=== PATIENT | female | born 1950 | race Caucasian/White ===

== ENCOUNTER 2020-07-18 11:25 | Observation (INO) | payer OTHER ==
--- OUTSIDE RECORDS SUMMARY | 2020-07-18 11:28 | XMS REPORT | Clinical Summary ---
:1950 Author Organization [facility] Address [address] [place] [address] Care Team Providers Name Role Phone Yuko Fall MD Primary Care Provider Unavailable Allergies Active Allergy Reactions Severity Noted Date Comments Aspirin 09/23/2016 Only in high do ses Codeine Nausea And Vomiting 09/23/2016 Other Rash Low 09/23/2016 VINEGAR Medications Medication Sig Dispensed Refills Start Date End Date Status BABY ASPIRIN ORAL Take 81 mg by 0 Active mouth daily. 2 pills a day budesonide-formot Inhale 2 0 Ac tive george (SYMBICORT) (two) times a 80-4.5 day as mcg/actuation needed. inhaler butorphanol as needed. 0 Active (STADOL) 10 mg/mL nasal spray carvedilol Take 12.5 mg 0 Active (COREG) 12.5 MG by mouth 2 tablet (two) times a day. furosemide Take 40 mg by 0 Activ e (LASIX) 40 MG mouth daily. tablet HYDROcodone-aceta Take 1 tablet 0 Active minophen (NORCO by mouth. 10-325) 10-325 mg per tablet zolpidem (AMBIEN) nightly as 0 03/17/2017 Active 10 mg needed. tabletIndications : Rheumatoid arthritis involving multiple sites with positive rheumatoid factor (HCC) topiramate Take 100 mg 0 05/12/2017 Active (TOPAMAX) 100 MG by mouth 2 tablet (two) times a day. Take 2 tablets twice a day XOPENEX HFA 45 USE 2 (TWO) 3 06/19/2018 Ac tive mcg/actuation PUFFS EVERY inhaler FOUR HOURS, NEEDED DULoxetine Take 60 mg by 5 06/07/2018 Acti ve (CYMBALTA) 60 MG mouth daily. capsule metOLazone Take 5 mg by 0 Active (ZAROXOLYN) 5 MG mouth daily. tablet folic acid Take 2 60 tablet 2 10/09/2018 Active (FOLVITE) 1 MG tablets by tabletIndications mouth daily : Rheumatoid arthritis involving multiple sites with positive rheumatoid factor (HCC) gabapentin TAKE 2 180 capsule 2 02/04/2020 Active (NEURONTIN) 300 CAPSULES BY mg capsule MOUTH 3 TIMES A DAY potassium Take 20 mEq 0 Active chloride (K-DUR) by mouth. 20 MEQ CR tablet umeclidinium daily. 0 03/19/2020 Active (Incruse Ellipta) 62.5 mcg/actuation blister with device ferrous sulfate Take by 0 Acti ve 325 (65 FE) MG mouth. tablet valACYclovir TAKE 1 TABLET 30 tablet 3 06/16/2020 Ac tive (VALTREX) 500 MG BY MOUTH tabletIndications DAILY FOR 30 : Herpes zoster DAYS. without complication infliximab Infuse 500 mg 0 Activ e (REMICADE IV) into a venous catheter. Every 8 weeks predniSONE Day 1- 2= 8 72 tablet 0 07/18/2020 Active (DELTASONE) 5 mg tabs, 3-4=7 0 tabletIndications tabs, 5-6=6 : Rheumatoid tabs,7-8=5 arthritis tabs, 9-10=4 involving tabs,11-12=3 multiple sites tabs,13-14=2 with positive tabs,15-16 rheumatoid factor =1. Take all (HCC) in the morning omeprazole 0 03/24/2017 Disconti nued (PriLOSEC) 40 MG 0 capsule ferrous sulfate Take by 0 Disc ontinued (IRON ORAL) mouth. 0 (Duplica te order) etanercept Inject under 0 Discon tinued (ENBREL the skin. 9 (Dose SURECLICK) 50 adjust ment) mg/mL (0.98 mL) pen injector gabapentin Takes 1 pill 120 tablet 2 01/08/2019 Disc ontinued (NEURONTIN) 800 four times a 9 ( Therapy mg tablet day completed) predniSONE 4 tablets 360 tablet 1 04/04/2019 Discont inued (DELTASONE) 5 mg daily and 9 (Th erapy tabletIndications taper as co mpleted) : Rheumatoid directed arthritis involving multiple sites with positive rheumatoid factor (HCC) gabapentin Take 2 pills 180 capsule 2 04/27/2019 Dis continued (NEURONTIN) 300 tid 9 (Reo rder) mg capsule valACYclovir Take 1 tablet 30 tablet 3 06/11/2019 Di scontinued (VALTREX) 500 MG (500 mg 9 (Re order) tabletIndications total) by : Herpes zoster mouth daily without for 30 days. complication gabapentin Take 2 pills 180 capsule 2 07/30/2019 Dis continued (NEURONTIN) 300 tid 9 mg capsule valACYclovir Take 1 tablet 30 tablet 3 10/15/2019 Di scontinued (VALTREX) 500 MG (500 mg 0 tabletIndications total) by : Herpes zoster mouth daily without for 30 days. complication etanercept Inject under 0 Discon tinued (ENBREL MINI) 50 the skin. 0 (In effective) mg/mL (1 mL) cartridge gabapentin Take 2 pills 180 capsule 2 11/05/2019 Dis continued (NEURONTIN) 300 tid 0 mg capsule valACYclovir TAKE 1 TABLET 30 tablet 3 02/04/2020 Di scontinued (VALTREX) 500 MG (500 MG 0 tabletIndications TOTAL) BY : Herpes zoster MOUTH DAILY without FOR 30 DAYS. complication leflunomide TAKE 1 TABLET 90 tablet 1 03/04/2020 Exp ired (ARAVA) 20 MG (20 MG TOTAL) 0 tabletIndications BY MOUTH : Rheumatoid DAILY FOR 90 arthritis DAYS. involving multiple sites with positive rheumatoid factor (HCC) Active Problems Problem Noted Date Herpes zoster without complication 03/24/2017 Rheumatoid arthritis involving multiple sites with pos itive rheumatoid 09/23/2016 factor Elevated fasting glucose 09/23/2016 Atherosclerosis of coronary artery 03/30/2016 Adrenal mass 02/19/2016 History of shingles Essential hypertension Sleep apnea COPD (chronic obstructive pulmonary disease) Encounters Date Type Specialty Care Team Description 07/18/2020 Telephone Rheumatology Sowmya Earl MA 07/18/2020 Orders Only Rheumatology Sowmya Earl Rheumatoid arthritis MA involving multi ple sites with positive r heumatoid factor (HCC) (P rimary Dx) 07/17/2020 Infusion Infusion Therapy Rheumatoid arthritis involving multiple sites with positive rheumatoid factor (HCC) (Primary Dx); Encounter for l tyler-term (current) use of high-risk medication 07/17/2020 Office Visit Rheumatology Kevin Jimenez Rheumatoi d arthritis involving multiple sites with positive rheumatoid factor (HCC) (Primary Dx); MD Encounter for l tyler-term (current) use of high-risk medication; Mixed hyperlipi demia; Essential hyper tension; Mucopurulent ch ronic bronchitis (HCC); Current smoker; Moderate episod e of recurrent major depressive disorder (HCC) 07/17/2020 Travel 06/16/2020 Refill Rheumatology Kevin Jimenez Herpes zo ster without MD complication 06/03/2020 Infusion Infusion Therapy Rheumatoid arthritis involving multi ple sites with positive r heumatoid factor (HCC) (P rimary Dx) 06/03/2020 Travel 05/20/2020 Infusion Infusion Therapy Encounter f or long-term current use of high risk medication (Primary Dx); Rheumatoid arth ritis involving multiple sites with positive rheumatoid factor (HCC) 05/20/2020 Travel 05/19/2020 Orders Only Infusion Therapy Abby Russ RN 04/23/2020 Lab Lab Kevin Jimenez Rheumatoi d arthritis with rheumatoid factor of multiple sites without organ or systems involvement (HCC) (Primary Dx); Other long term care administrator (current) drug therapy 04/23/2020 Office Visit Rheumatology Kevin Jimenez Rheumatoi d arthritis involving multiple sites with positive rheumatoid factor (HCC) (Primary Dx); MD Encounter for l tyler-term (current) use of high-risk medication 04/23/2020 Travel 03/03/2020 Refill Rheumatology Kevin Jimenez Rheumatoi d arthritis MD involving multi ple sites with positive r heumatoid factor (HCC) 02/19/2020 Telephone Rheumatology Sowmya Earl MA 02/04/2020 Refill Rheumatology Kevin Jimenez Herpes zo ster without MD complication 11/02/2019 Refill Rheumatology Kevin Jimenez MD 10/24/2019 Office Visit Rheumatology Kevin Jimenez Rheumatoi d arthritis involving multiple sites with positive rheumatoid factor (HCC) (Primary Dx); MD Encounter for l tyler-term (current) use of high-risk medication; Essential hyper tension; Mixed hyperlipi demia; GERD without es ophagitis; Elevated fastin g glucose; Mucopurulent ch ronic bronchitis (HCC); Atherosclerosis of coronary artery of qu[place] heart without angina pectoris, unspecified vessel or lesion type 10/15/2019 Refill Rheumatology Kevin Jimenez, Herpes zo ster without MD complication 07/30/2019 Refill Rheumatology Kevin Jimenze MD after 07/18/2019 Family History Medical History Relation Name Comments Heart attack Father COPD Mother Alopecia Sister Bipolar disorder Sister Relation Name Status Comments Father Mother Sister Alive Social History Tobacco Use Types Packs/Day Years Used Date Former Smoker Quit: 2012 Smokeless Tobacco: Never Used Alcohol Use Drinks/Week oz/Week Comments Yes Sex Assigned at Date Recorded Not on file Job Start Date Occupation Industry Not on file Not on file Not on file Travel History Travel Start Travel End No recent travel history available. COVID-19 Exposure Response Date Recorded In the last month, have you been in contact with No / Unsure 07/17/2020 9:16 AM CDT someone who was confirmed or suspected to have Coronavirus / COVID-19? Last Filed Vital Signs Vital Sign Reading Time Taken Comments Blood Pressure 96/55 07/17/2020 9:53 AM CDT Pulse 74 07/17/2020 9:53 AM CDT Temperature 36.4 C (97.5 F) 07/17/2020 9:53 AM CDT Respiratory Rate 18 07/17/2020 9:53 AM CDT Oxygen Saturation 98% 07/17/2020 9:44 AM CDT Inhaled Oxygen Concentration - - Weight 96.2 kg (212 lb) 07/17/2020 9:53 AM CDT Height 160 cm (5' 3") 07/17/2020 9:44 AM CDT Body Mass Index 37.55 07/17/2020 9:44 AM CDT Plan of Treatment Date Type Specialty Care Team Description 09/11/2020 Infusion Infusion Therapy Health Maintenance Due Date Last Done Comments BREAST CANCER SCREENING 2000 COLONOSCOPY SCREENING 2000 SHINGLES VACCINES (#1) 2000 65+ PNEUMOCOCCAL VACCINE (1 of 2 - PCV13) 2015 INFLUENZA VACCINE 08/07/2020 Procedures Procedure Name Priority Date/Time Associated Comments Diagnosis QUANTIFERON-TB GOLD Routine 05/20/2020 9:55 Re sults for this PLUS, 1 TUBE AM CDT procedure are i n the results section. HEPATITIS B CORE Routine 05/20/2020 9:55 Encounter for Result s for this ANTIBODY TOTAL AM CDT long-term current procedur e are in use of high risk the results medication section. HEPATITIS B SURFACE Routine 05/20/2020 9:55 Encounter for Res ults for this ANTIGEN AM CDT long-term current procedure are in use of high risk the results medication section. ESTIMATED GFR Routine 04/23/2020 12:15 Results fo r this PM CDT procedure are i n the results section. URINALYSIS, AUTOMATED Routine 04/23/2020 12:15 Rheumatoid Re sults for this WITH MICROSCOPY PM CDT arthritis with procedure are in rheumatoid factor the result s of multiple sites section. without organ or systems involvement (HCC) Other long term care administrator (current) drug therapy SEDIMENTATION RATE Routine 04/23/2020 12:15 Rheumatoid Resul ts for this PM CDT arthritis with procedure are in rheumatoid factor the result s of multiple sites section. without organ or systems involvement (HCC) Other fci (current) drug therapy C-REACTIVE PROTEIN Routine 04/23/2020 12:15 Rheumatoid Resul ts for this PM CDT arthritis with procedure are in rheumatoid factor the result s of multiple sites section. without organ or systems involvement (HCC) Other fci (current) drug therapy COMPREHENSIVE Routine 04/23/2020 12:15 Rheumatoid Results fo r this METABOLIC PANEL PM CDT arthritis with procedure are in rheumatoid factor the result s of multiple sites section. without organ or systems involvement (HCC) Other long term care administrator (current) drug therapy HC COMPLETE BLD COUNT Routine 04/23/2020 12:15 Rheumatoid Re sults for this W/AUTO DIFF PM CDT arthritis with procedure are in rheumatoid factor the result s of multiple sites section. without organ or systems involvement (HCC) Other fci (current) drug therapy MICROSCOPIC Routine 10/24/2019 2:02 Results for this EXAMINATION PM GRAPHICS SOFTWARE ENGINEER procedure are i n the results section. URINALYSIS, AUTOMATED Routine 10/24/2019 2:02 Encounter for R esults for this WITH MICROSCOPY PM GRAPH[employer] SOFTWARE ENGINEER long-term (current) proce dure are in use of high-risk the results medication section. SEDIMENTATION RATE Routine 10/24/2019 2:02 Rheumatoid Resul ts for this PM [employer]APH[employer] SOFTWARE ENGINEER arthritis involving procedur e are in multiple sites with the resu lts positive rheumatoid section. factor (HCC) C-REACTIVE PROTEIN Routine 10/24/2019 2:02 Rheumatoid Resul ts for this PM GRAPHICS SOFTWARE ENGINEER arthritis involving procedur e are in multiple sites with the resu lts positive rheumatoid section. factor (HCC) COMPREHENSIVE Routine 10/24/2019 2:02 Encounter for Results f or this METABOLIC PANEL PM GRAPHICS SOFTWARE ENGINEER long-term (current) proce dure are in use of high-risk the results medication section. CBC WITH PLATELET AND Routine 10/24/2019 2:02 Encounter for R esults for this DIFFERENTIAL PM GRAPHICS SOFTWARE ENGINEER long-term (current) procedur e are in use of high-risk the results medication section. after 07/18/2019 Results QuantiFERON-TB Gold Plus, 1 Tube (05/20/2020 9:55 AM CDT) [facility] Quantiferon TB gold NEGATIVE NEGATIVE [facility] plus Comment: [place] Negative test result. M. tuberculosis complex infection unlikely. Quantiferon NIL 0.05 IU/mL [facility] [place] Quantiferon mitogen >10.00 IU/mL [facility] minus NIL [place] Quantiferon plus <0.00 IU/mL [facility] TB1 minus NIL [place] Quantiferon plus <0.00 IU/mL [facility] TB2 minus NIL Comment: [place] The Nil tube value reflects the background interferon gamma immune response of the patient's blood sample. This value has been subtracted from the patient's displayed TB and Mitogen results. Lower than expected results with the Mitogen tube prevent false-negative Quantiferon readings by detecting a patient with a potential immune suppressive condition and/or suboptimal pre-analytical specimen handling. The TB1 Antigen tube is coated with the M. tuberculosis-specific antigens designed to elicit responses from TB antigen primed CD4+ helper T-lymphocytes. The TB2 Antigen tube is coated with the M. tuberculosis-specific antigens designed to elicit responses from TB antigen primed CD4+ helper and CD8+ cytotoxic T-lymphocytes. For additional information, please refer to https://education.Myntra.Innova/faq/VHK552 (This link is being provided for informational/ educational purposes only.) Specimen Resulting Agency Comment Performing Organization Information: Site ID: [id number] Name: [place] [employer] [employer] Address: [address] [place] [id number] Director: Cleveland Sampson Performing Organization Address City/State/Zipcode Phone Number [place] [address] [address] Hepatitis B core antibody total (05/20/2020 9:55 AM CDT) Hepatitis B core NON-REACTIVE NON-REACTIVE [facility] total Ab [place] Specimen Blood Resulting Agency Comment Performing Organization Information: Site ID: [id number] Name: [facility] Address: [address] [place] [phone] Director: Cleveland Sampson Performing Organization Address City/State/[facility] Phone Number [facility] [email or web address] [address] Hepatitis B surface antigen (05/20/2020 9:55 AM CDT) Hepatitis B surface NON-REACTIVE NON-REACTIVE [facility] Ag [place] Specimen Blood Resulting Agency Comment Performing Organization Information: Site ID: KARLOS Name: [facility] Address: [address] [place] [id number] Director: Cleveland Sampson Performing Organization Address [facility] Cent[facility]ode Phone Number [place] [phone] Estimated GFR (04/23/2020 12:15 PM CDT) Estimated GFR 38 (A) mL/min/1.73 [facility] Comment: HOSPITAL Catergory Units Interpretation G1 >=90 Normal or high G2 60-89 Mildly decreased G3a 45-59 Mildly to moderately decreas ed G3b 30-44 Moderately to severely decre ased G4 15-29 Severely decreased G5 <15 Kidney failure The eGFR was calculated using the Chronic Kidney Disea se Epidemiology Collaboration (CKD-EPI) equation. Interpretation is based on recommendations of the National Kidney Foundation-Kidney Disease Outcomes Marvel lity Initiative (NKF-KDOQI) published in 2014. Specimen Performing Organization Address City/State/Zipcode Phone Number [facility] DEPARTMENT OF PATHOLOGY AND [address], [place] [address] GENOMIC MEDICINE [facility] [address] [place] [address] Urinalysis, automated with microscopy (04/23/2020 12:15 PM CDT)Only the most recent of2 resultswithin the time period is included. Pathologist Sig nature Color, UA Straw [facility] Appearance, UA Clear [facility] Specific gravity, UA 1.012 1.001 - 1.035 [facility] pH, UA 5.0 5.0 - 8.5 [facility] Protein, UA Negative Negative [facility] Glucose, UA Negative Negative [facility] Ketones, UA Negative Negative [facility] Bilirubin, UA Negative Negative [facility] Blood, UA Negative Negative [facility] Nitrite, UA Negative Negative [facility] Urobilinogen, UA <2.0 <2.0 [facility] Leukocyte esterase, Negative Negative [facility] Epithelial cells, UA 3 /HPF [facility] WBC, UA <1 0 - 4 /HPF [facility] RBC, UA 1 0 - 5 /HPF [facility] Bacteria, UA None seen None seen [facility] Hyaline casts, UA 11 /LPF [facility] Yeast, UA None seen [facility] Yeast with None seen [facility] pseudohyphae, HOSPITAL Specimen Urine Performing Organization Address City/[facility] Cent[facility]ode Phone Number [facility] DEPARTMENT OF PATHOLOGY AND [address] [place] [address] [address] Sedimentation rate (04/23/2020 12:15 PM CDT)Only the most recent of2 results within the time period is included. Pathologist Sig nature Sedimentation rate 15 0 - 20 mm/hr [facility] Specimen Blood Performing Organization Address City/[facility] Centercode Phone Number [facility] DEPARTMENT OF PATHOLOGY AND [address] [place] [address] [address] [address] CBC with platelet and differential (04/23/2020 12:15 PM CDT)Only the most recent of2 resultswithin the time period is included. WBC 12.50 (H) 4.50 - 11.00 [facility] RBC 4.66 4.20 - 5.50 [facility] HGB 15.3 12.0 - 16.0 [facility] g/dL [facility] HCT 47.0 37.0 - 47.0 % [facility] MCV 100.9 (H) 82.0 - 100.0 [facility] MCH 32.8 27.0 - 34.0 pg [facility] MCHC 32.6 31.0 - 37.0 [facility] g/dL HOSPITAL RDW - SD 49.7 37.0 - 55.0 fL [facility] MPV 10.4 8.8 - 13.2 fL [facility] Platelet count 293 150 - 400 k/uL [facility] Nucleated RBC 0.00 /100 WBC [facility] Neutrophils 69.2 (H) 39.0 - 69.0 % [facility] Lymphocytes 14.2 (L) 25.0 - 45.0 % [facility] Monocytes 9.1 0.0 - 10.0 % [facility] Eosinophils 6.1 (H) 0.0 - 5.0 % [facility] Basophils 1.0 0.0 - 1.0 % [facility] Immature granulocytes 0.4Comment: 0.0 - 1.0 % [facility] "Immature [facility] granulocytes" (promyelocytes , myelocytes, metamyelocytes ) Specimen Blood Performing Organization Address City/[facility] Centercode Phone Number [facility] DEPARTMENT OF PATHOLOGY AND [address] [place] [address] [address] C-reactive protein (04/23/2020 12:15 PM CDT)Only the most recent of2 results within the time period is included. Pathologist Sig nature CRP 2.33 (H) 0.00 - 0.50 mg/dL [facility] Specimen Blood Performing Organization Address City/[facility]/Zipcode Phone Number [facility] DEPARTMENT OF PATHOLOGY AND [address] [place], [place] [phone] [address] [address] Comprehensive metabolic panel (04/23/2020 12:15 PM CDT)Only the most recent of2 resultswithin the time period is included. Sodium 141 135 - 148 [facility] mEq/L [facility] Potassium 3.1 (L) 3.5 - 5.0 [facility] mEq/L [facility] Chloride 91 (L) 98 - 112 [facility] mEq/L [facility] CO2 33 (H) 24 - 31 mEq/L [facility] Anion gap 17@ANIO (H) 7 - 15 mEq/L [facility] BUN 29 (H) 8 - 23 mg/dL [facility] Creatinine 1.39 (H) 0.50 - 0.90 [facility] mg/dL HOSPITAL Glucose 100 (H) 65 - 99 mg/dL [facility] Calcium 9.4 8.8 - 10.2 [facility] mg/dL [facility] Protein 7.7 6.3 - 8.3 [facility] Comment: g/dL HOSPITAL - 4.6-7.0 g/dL 1 week 4.4-7.6 g/dL 7 months-1year 5.1-7.3 g/dL 1-2 years 5.6-7.5 g/dL >3 years 6.0-8.0 g/dL 18-150 6.3-8.3 g/dL Albumin 3.5 3.5 - 5.0 [facility] g/dL [facility] A/G ratio 0.8 0.7 - 3.8 [facility] Alkaline phosphatase 87 35 - 104 U/L [facility] AST 21 10 - 35 U/L [facility] ALT 21 5 - 50 U/L [facility] Total bilirubin 0.3 0.0 - 1.2 [facility] mg/dL [facility] Specimen Blood Performing Organization Address City/[facility]/Zipcode Phone Number [facility] DEPARTMENT OF PATHOLOGY AND [address], [place] [address] GENOMIC MEDICINE [address] [address] Microscopic Examination (10/24/2019 2:02 PM GRAPHICS SOFTWARE ENGINEER) Pathologist Sig nature WBC, UA 0-5 0 - 5 /hpf [facility] RBC, UA None seen 0 - 2 /hpf [facility] Epithelial cells (non 0-10 0 - 10 /hpf [facility] renal) Casts Present (A) None seen /lpf [facility] Cast type Hyaline casts N/A [facility] Mucus, UA Present Not Estab. [facility] Bacteria, UA Few None seen/Few [facility] Specimen Narrative Performed At Performed at: [address] [id number] Director Of Primary: Ankur Wellington MD, Phone: [phone] Performing Organization Address City/State/Zipcode Phone Number [facility] after 07/18/2019 Insurance Payer Benefit Plan / Subscriber ID Effective Dates Phone Addre ss Type Group MEDICARE MEDICARE PART A xxxxxxxxxxx 2015-[place] AND B nt [employer] xxxxxxxxxx 2015-[place] [employer] OF jose rafael [place]OR[place] Advance Directives For more information, please contact: [phone] Type Date Recorded Patient Overedger Explanati on Advance Directives, Living Will and Medical Power of Jig Filler
--- OUTSIDE RECORDS SUMMARY | 2020-07-18 11:28 | XMS REPORT | Clinical Summary ---
:1950 Author Organization [facility] Address [address] [place] [address] Care Team Providers Name Role Phone FallEmma Primary Care Provider Allergies Active Allergy Reactions Severity Noted Date Comments Aspirin 07/20/2016 Codeine 07/20/2016 Medications Medication Sig Dispensed Refills Start Date End Date Status furosemide (LASIX) 40 Take 40 mg by 0 Active MG tablet mouth 2 (two) times daily. BABY ASPIRIN ORAL Take by mouth. 0 Active carvedilol (COREG) Take 12.5 mg by 0 Active 12.5 MG tablet mouth 2 (two) times daily with breakfast and dinner. leflunomide (ARAVA) 10 Take 10 mg by 0 Active MG tablet mouth daily. HYDROcodone-acetaminop Take 1 tablet by 0 Active hen (NORCO 10-325) mouth every 6 10-325 mg per tablet (six) hours as needed for Pain. butorphanol (STADOL) None Entered. 0 Active 10 mg/mL nasal spray estrogens, conjugated, 1 TABLET DAILY. 0 Active (PREMARIN) 0.625 MG tablet fLUoxetine (PROZAC) 20 1 CAPSULE EVERY 0 Active MG capsule MORNING. budesonide-formoterol Inhale by mouth 0 Active (SYMBICORT) 80-4.5 via inhaler as mcg/actuation inhaler needed . albuterol HFA Inhale 1 puff by 0 Active (VENTOLIN HFA) 90 mouth via inhaler mcg/actuation inhaler every 6 (six) hours as needed . acyclovir (ZOVIRAX) Take 800 mg by 0 Active 800 MG tablet mouth. gabapentin (GRALISE) Take 3 tablets by 0 02/17/2016 Active 600 mg Tb24 mouth. BUTRANS 10 mcg/hour 0 05/31/2016 Active PTWK SANTYL 250 unit/gram 0 06/15/2016 Active ointment levofloxacin 0 07/22/2016 Active (LEVAQUIN) 750 MG tablet predniSONE (DELTASONE) 0 06/01/2016 Active 5 MG tablet topiramate (TOPAMAX) 0 05/07/2016 Active 50 MG tablet Active Problems Problem Noted Date Symptomatic cholelithiasis 07/20/2016 Family History Medical History Relation Name Comments Heart disease Father COPD Mother Relation Name Status Comments Brother Father Mother Social History Tobacco Use Types Packs/Day Years Used Date Former Smoker Alcohol Use Drinks/Week oz/Week Comments No Sex Assigned at Date Recorded Not on file Job Start Date Occupation Industry Not on file Not on file Not on file Travel History Travel Start Travel End No recent travel history available. Last Filed Vital Signs Not on file Plan of Treatment Health Maintenance Due Date Last Done Comments INFLUENZA VACCINE 08/07/2018 Results Not on fileafter 07/18/2019 Insurance Payer Benefit Plan / Group Subscriber ID Type Phone A ddress MEDICARE MEDICARE A B xxxxxxxxxx Medicare MCR GENERIC MEDICARE xxxxxxxxxx Medigap SUPPLEMENT/INDIVIDUAL SUPPLEMENT [phone] [id number] (Work) Advance Directives For more information, please contact:[address] [phone] Code Status Date Activated Date Inactivated Comments Full Code 07/21/2016 2:46 PM 07/22/2016 1:37 PM This code status was determined by: Patient Full Code 07/20/2016 4:03 PM 07/21/2016 2:46 PM This code status was determined by: Patient
--- OUTSIDE RECORDS SUMMARY | 2020-07-18 11:30 | XMS REPORT | Continuity of Care Document ---
:1950 Author Organization [facility] t Address [address] [place] [address] Care Team Providers Name Role Phone FRITZ Primary Care Physician Unavailable SYSTEM, NOT IN Attending Clinician Unavailable ALEXIA Attending Clinician Unavailable Margot LANDAVERDE Attending Clinician Unavailable Rajat PARKER Attending Clinician Unavailable Domi Keane MD Attending Clinician Karson MARIO Attending Clinician FRITZ Attending Clinician Unavailable García Davidson RN Attending Clinician Unavailable Jhoana Flores MD Attending Clinician Tyrell RN Attending Clinician Unavailable Alexia LOPEZ Attending Clinician Unavailable Petrona RN Attending Clinician Unavailable Disha ROLDAN A Attending Clinician Edwina Price Attending Clinician Fritz MYLES Attending Clinician Isac MYLES Attending Clinician Unavailable Margot Dawson APN Attending Clinician Payers Payer Name Policy Policy Number Effective Expiration Source Type Date Date MEDICARE PART A AND B [id number] 2015 00:00:00 AETNA SENIOR [id number] 2015 SUPPLEMENT-SECONDARY 00:00:00 ONLY GENERIC [id number] MEDICAREMEDICARE PART xxxxxxxxxxx 2015 [place] A AND 00:00:00 [facility] [id number]/1/2015 -DanieHUMBERTO CASTORENAMedicare AETNACONTINENTAL LIFE xxxxxxxxxx 2015 Isabelle heath INS CO OF 00:00:00 [facility] [id number]-PresentCommer cial Problems Condition Condition Condition Status Onset Resolution Last Treating Co mments Source Name Details Category Date Date Treatment Clinician Date Chronic Chronic Disease Active kidney kidney 3-12 Anderso disease disease 00:00: n 00 Emphysema Emphysema Disease Active 3-12 Anderso 00:00: n 00 Sore Sore Disease Active throat throat 1-16 Anderso 00:00: n 00 Bilateral Bilateral Disease Active mass of mass of 12-08 Anderso adrenal adrenal 00:00: n glands glands 00 Hypertensi Hypertensi Disease Active M D on on 12-08 Anderso 00:00: n 00 Herpes Herpes Disease Active [place] zoster zoster 5-18 Methodi without without 00:00: st complicati complicati 00 on on Rheumatoid Rheumatoid Disease [facility] - Meth luz maria involving involving 00:00: st multiple multiple 00 sites with sites with positive positive rheumatoid rheumatoid factor factor Elevated Elevated Disease Active 2015-11 [place] fasting fasting 1-17 Methodi glucose glucose 00:00: st 00 Symptomati Symptomati Disease Active [facility] c c 9-13 [facility] chole[facility]ithi cholelithi 00:00: Me dical asis asis 00 Center Moderate Moderate Disease Active chronic chronic 5-26 Anderso obstructiv obstructiv 00:00: n e e 00 pulmonary pulmonary disease disease Coronary Coronary Disease Active artery artery 5-24 Anderso disease disease 00:00: n due to due to 00 lipid rich lipid rich plaque plaque Atheroscle Atheroscle Disease Active [place] rosis of rosis of 5-24 Method i coronary coronary 00:00: st artery artery 00 Adrenal Adrenal Disease Active [place] mass mass 4-14 Methodi 00:00: st 00 Rheumatoid Rheumatoid Disease Active 2008-11 Overview : arthritis arthritis 12-16 Overview: A nderso 00:00: ICD-10 n 00 History of History of Disease Active [place] shingles shingles Method i st Essential Essential Disease Active Isabelle ivana hypertensi hypertensi Me thodi on on st Sleep Sleep Disease Active [place] apnea apnea Methodi st COPD COPD Disease Active [place] (chronic (chronic Method i obstructiv obstructiv st e e pulmonary pulmonary disease) disease) Allergies, Adverse Reactions, Alerts Allergy Allergy Status Severity Reaction(s) Onset Inactive Treating Comm ents Source Name Type Date Date Clinician Aspirin Propensi Active 2015-11 Only in [place] ty to 11-23 high Methodi adverse 00:00: doses st reaction 00 s to drug Codeine Propensi Active Nausea And 2015-11 Isabelle ston ty to Vomiting 11-23 Methodi adverse 00:00: st reaction 00 s to drug Other Propensi Active Rash 2015-11 VINEGAR [place] ty to 11-23 Methodi adverse 00:00: st reaction 00 s Aspirin Propensi Active [facility] adverse 00:[facility]: Medical reaction 00 Center s Codeine Propensi Active [facility] to 07-20 [facility] - adverse 00:00: Medical reaction 00 Center s Family History Family Member Diagnosis Comments Start Date Stop Date Source Natural father Heart disease [facility] Natural father Heart disease MD Augustine birch Natural father Hypertension Luis son Natural father Heart attack [place] [facility] Natural mother COPD [facility] Natural mother Skin cancer [place] on Natural mother COPD [facility] thodist Natural brother Heart disease [place] Natural sister Hypertension Luis son Natural sister [place] [facility] thodist Natural sister Bipolar disorder [place] [facility] Social History Social Habit Start Date Stop Date Quantity Comments Source History of tobacco Current smoker [place]ina [facility] use Sex Assigned At [place] M ethodist Exposure to Not sure [place] Metho dist SARS-CoV-2 (event) Alcohol intake 2020-07-17 2020-07-17 Current drinker [place] on [facility] 00:00:00 00:00:00 of alcohol (finding) Cigarettes smoked 2020-01-17 2020-01-17 MD [place] birch current (pack per 00:00:00 00:00:00 day) - Reported Smoking Status Start Date Stop Date Source Former smoker 2020-07-17 00:00:00 2020-07-17 00:00:00 Raffaele Robersonist Current every day smoker 2020-01-17 00:00:00 MD Carlisle Medications Ordered Filled Start Stop Current Ordering Indication Dosage Frequency Signature Comments Components Source Medication Medication Date Date Medication? Clinician (SIG) Name Name predniSONE 2020-0 2020- Yes Rheumatoid Day 1- 2= [place] (DELTASONE) 9-11 09-30 arthritis 8 tabs, Methodi 5 mg tablet 00:00: 23:59 involving 3-4=7 st 00 :00 multiple tabs, sites with 5-6=6 positive tabs,7-8=5 rheumatoid tabs, factor 9-10=4 (HCC) tabs,11-12 =3 tabs,13-14 =2 tabs,15-16 =1. Take all in the morning BABY 2020-0 Yes 81mg QD Take 81 mg [place] ASPIRIN 9-10 by mouth Methodi ORAL 10:07: daily. 2 st 25 pills a day budesonide- 2020-0 Yes Q.5D Inhale 2 [place] formoterol 9-10 (two) Methodi (SYMBICORT) 10:07: times a st 80-4.5 25 day as mcg/actuati needed. on inhaler butorphanol 2020-0 Yes as needed. [place] (STADOL) 10 9-10 Methodi mg/mL nasal 10:07: st spray 25 carvedilol 2020-0 Yes 12.5mg Q.5D Take 12.5 [place] (COREG) 9-10 mg by Methodi 12.5 MG 10:07: mouth 2 st tablet 25 (two) times a day. furosemide 2020-0 Yes 40mg QD Take 40 mg [place] (LASIX) 40 9-10 by mouth Metho di MG tablet 10:07: daily. st 25 HYDROcodone 2020-0 Yes 1{tbl} Take 1 [place] -acetaminop 9-10 tablet by Met mayo jay (NORCO 10:07: mouth. st 10-325) 25 10-325 mg per tablet metOLazone 2020-0 Yes 5mg QD Take 5 mg [place] (ZAROXOLYN) 9-10 by mouth Meth luz maria 5 MG tablet 10:07: daily. st 25 potassium 2020-0 Yes 20meq Take 20 [place] chloride 9-10 mEq by Methodi (K-DUR) 20 10:07: mouth. st MEQ CR 25 tablet ferrous 2020-0 Yes Take by [place] sulfate 325 9-10 mouth. Method i (65 FE) MG 10:07: st tablet 25 infliximab 2020-0 Yes 500mg Infuse 500 [place] (REMICADE 9-10 mg into a Metho di IV) 10:07: venous st 25 catheter. Every 8 weeks etanercept 2020-0 2020- No Inject [place] (ENBREL 9-10 09-10 under the Method i MINI) 50 09:37: 00:[address] mg/mL (1 18 :00 mL) cartridge valACYclovi 2020-0 Yes Herpes TAKE 1 [place] r (VALTREX) 8-10 zoster TABLET BY M ethodi 500 MG 00:00: without MOUTH st tablet 00 complicatio DAILY FOR n 30 DAYS. ferrous 2020-0 2020- No Take by Tono n sulfate 6-17 06-17 mouth. Methodi (IRON ORAL) 10:43: 00:00 st 38 :00 potassium 2020-0 Yes 20meq Take 20 MD chloride 6-03 mEq by Anderso (K-DUR,KLOR 16:21: mouth 3 n -CON M) 20 47 (three) mEq tablet times a day. predniSONE 2020-0 Yes 20mg Take 20 mg M D (DELTASONE) 6-03 by mouth Augustine rso 5 mg tablet 16:16: as needed. n 37 FOR RHEUMATOID ARTHRITIS FLARE UP carvedilol 2020-0 Yes 12.5mg 12.5 mg MD (COREG) 6-03 twice Anderso 12.5 mg 16:16: daily. n tablet 37 furosemide 2020-0 Yes 40mg Take 40 mg M D (LASIX) 40 6-03 by mouth Luis so mg tablet 16:16: daily. n 37 aspirin 81 2020-0 Yes 81mg Take 81 mg M D mg EC 6-03 by mouth Anderso tablet 16:16: twice n 37 daily. butorphanol 2020-0 Yes 1{spray Inhale 1 MD (STADOL) 10 6-03 } spray into An derso mg/mL nasal 16:16: each n spray 37 nostril every 4 (four) hours as needed for moderate pain. HYDROcodone 2020-0 Yes 1{tbl} Take 1 MD -acetaminop 6-03 tablet by And shaio hen (NORCO) 16:16: mouth 2 n 10 mg-325 37 (two) mg per times a tablet day as needed. albuterol 2020-0 Yes 1{puff} Inhale 1 M D (VENTOLIN 6-03 puff by Anderso HFA) 90 16:16: mouth as n mcg/puff 37 needed. inhaler budesonide- 2020-0 Yes Inhale by M D formoterol 6-03 mouth Anderso (SYMBICORT) 16:16: twice n 80-4.5 37 daily. mcg/actuati on inhaler topiramate 2020-0 Yes 400mg Take 400 MD (TOPAMAX) 6-03 mg by Anderso 200 mg 16:16: mouth n tablet 37 twice daily. leflunomide 2020-0 Yes 20mg Take 20 mg MD (ARAVA) 20 6-03 by mouth Luis so mg tablet 16:16: daily. n 37 diazePAM 2020-0 Yes 10mg Take 10 mg MD (VALIUM) 10 6-03 by mouth Augustine rso mg tablet 16:16: as needed. n 37 omeprazole 2020-0 Yes 40mg Take 40 mg M D (PriLOSEC) 6-03 by mouth Luis so 40 MG 16:16: at n capsule 37 bedtime. melatonin 2020-0 Yes 10mg Take 10 mg MD 10 mg 6-03 by mouth Anderso tablet 16:16: at n 37 bedtime. valACYclovi 2020-0 Yes 500mg Take 500 M D r (VALTREX) 6-03 mg by Anderso 500 mg 16:16: mouth n tablet 37 daily. gabapentin 2020-0 Yes 300mg Take 300 MD (NEURONTIN) 6-03 mg by Anderso 300 mg 16:16: mouth 3 n capsule 37 (three) times a day. etanercept 2020-0 Yes 50mg Inject 50 MD (ENBREL) 50 6-03 mg under Augustine rso mg/mL (0.98 16:16: the skin n mL) 37 once a injection week. famotidine 2020-0 Yes 10mg Take 10 mg M D (PEPCID) 10 6-03 by mouth Augustine rso mg tablet 16:16: twice n 37 daily. folic acid 2020-0 Yes 1mg Take 1 mg MD (FOLVITE) 1 6-03 by mouth Augustine rso mg tablet 16:16: twice n 37 daily. metOLazone 2020-0 Yes 5mg Take 5 mg MD (ZAROXOLYN) 6-03 by mouth Augustine rso 5 mg tablet 16:16: daily. n 37 ARIPiprazol 2020-0 Yes 5mg Take 5 mg M D e (ABILIFY) 6-03 by mouth Augustine rso 5 mg tablet 16:16: at n 37 bedtime. zolpidem 2020-0 Yes 10mg Take 10 mg MD (AMBIEN) 10 6-03 by mouth Augustine rso mg tablet 16:16: at n 37 bedtime. ferrous 2020-0 Yes Take by MD sulfate 325 04-09 mouth Anderso mg (65 mg 16:16: daily. n elemental 37 iron per tablet) tablet dexamethaso 2020-0 2020- No 1mg Take 1 mg MD ne 04-09 by mouth Anderso (DECADRON) 16:16: 00:00 as n 1 mg tablet 08 :00 directed. dexamethaso 2020-0 2020- No Bilateral 1mg Take 1 MD ne 04-09 0604 mass of tablet (1 [place] o (DECADRON) 00:00: 04:59 adrenal mg) by n 1 mg tablet 00 :00 glands mouth once for 1 dose. Take it at 11 PM before the day of the test. iron 2020-0 2020- No 1{tbl} Take 1 MD bisgly,ps-F 04-08 tablet by An kalia A-B-C#[id number] 16:26: 00:00 mouth n cc 65 mg-65 22 :00 daily. mg -1,000 mcg (24) tab DULoxetine 2020-0 Yes daily. MD (CYMBALTA) 5-15 Anderso 60 mg 00:00: n capsule 00 INCRUSE 2020-0 Yes daily. MD ELLIPTA 5-13 Anderso 62.5 00:00: n mcg/actuati 00 on dsdv umeclidiniu 2020-0 Yes daily. Ray cruz m (Incruse 5-13 Methodi Ellipta) 00:00: st 62.5 00 mcg/actuati on blister with device potassium 2020-0 2020- No twice MD chloride 03-07 daily. Anderso (K-DUR,KLOR 00:00: 00:00 n -CON M) 20 00 :00 mEq tablet leflunomide No Rheumatoid TAKE 1 [place] (ARAVA) 20 4-28 07-27 arthritis TABLET (20 Methodi MG tablet 00:00: 23:59 involving MG TOTAL) st 00 :00 multiple BY MOUTH sites with DAILY FOR positive 90 DAYS. rheumatoid factor (HCC) dexamethaso 2019- No Bilateral Take 1 MD ne 4- 06-03 mass of tablet by [place] o (DECADRON) 00:00: 00:00 adrenal mouth at n 1 mg tablet 00 :00 glands 11 pm the night before lab work dexamethaso 2019- No Bilateral Take 1 MD ne 4- 04-09 mass of tablet by [place] o (DECADRON) 00:00: 00:00 adrenal mouth at n 1 mg tablet 00 :00 glands 11 pm the night before lab work gabapentin Yes TAKE 2 [place] on (NEURONTIN) 3-30 CAPSULES Meth luz maria 300 mg 00:00: BY MOUTH 3 st capsule 00 TIMES A DAY valACYclovi 2019- No Herpes TAKE 1 [place] (VALTREX) 3-30 08-10 zoster TABLET Met hodi 500 MG 00:00: 00:00 without ([address] tablet 00 :00 complicatio TOTAL) BY n MOUTH DAILY FOR 30 DAYS. potassium No 1{tbl} Take 1 MD 99 mg tab 3-12 03-12 tablet by Augustine rso 17:17: 00:00 mouth n 37 :00 twice daily. potassium Bilateral 20meq Take 2 MD chloride 3-12 03-13 mass of tablets Augustine rso (KLOR-CON) 00:00: 05:59 adrenal (20 mEq) n 10 mEq CR 00 :00 glands by mouth tablet daily. amoxicillin No 1{tbl} Take 1 M D -clavulanat 3 06-02 tablet by An derso e 00:00: 00:00 mouth n (AUGMENTIN) 00 :00 every 12 875 mg-125 (twelve) mg per hours. tablet dexamethaso No Adrenal 1mg Take 1 MD ne 2-24 02-25 mass tablet (1 Anderso (DECADRON) 00:00: 05:59 mg) by n 1 mg tablet 00 :00 mouth once for 1 dose. gabapentin 2018-11- No Take 2 [place] (NEURONTIN) -30 pills tid Me thodi 300 mg 00:00: 00:00 st capsule 00 :00 etanercept 2018-11- No Inject [place] (ENBREL 12-2518 under the Method i SURECLICK) 13:14: 00:[address] 50 mg/mL 01 :00 (0.98 mL) pen injector valACYclovi 2018-11- No Herpes Take 1 [place] (VALTREX) 2-30 zoster tablet Met hodi 500 MG 00:00: 00:00 without ([address] tablet 00 :00 complicatio total) by n mouth daily for 30 days. gabapentin 2018- No Take 2 [place] (NEURONTIN) 07-30-30 pills tid Me thodi 300 mg 00:00: 00:00 st capsule 00 :00 valACYclovi 2018- No Herpes Take 1 [place] (VALTREX) 06-11 12 zoster tablet Met hodi 500 MG 00:00: 00:00 without ([address] tablet 00 :00 complicatio total) by n mouth daily for 30 days. gabapentin 2018- No Take 2 [place] (NEURONTIN) 6-23 pills tid Me thodi 300 mg 00:00: 00:00 st capsule 00 :00 predniSONE 2018- No Rheumatoid 4 tablets [place] (DELTASONE) 5 12-18 arthritis daily and Methodi 5 mg tablet 00:00: 00:[address] 00 :00 multiple directed sites with positive rheumatoid factor (HCC) gabapentin 2018- No Takes 1 Isabelle ston (NEURONTIN) 3-04 12-18 pill four Me thodi 800 mg 00:00: 00:[address] tablet 00 :00 day folic acid 2017-11 Yes Rheumatoid Take 2 [place] (FOLVITE) 1 2-03 arthritis tablets by Methodi MG tablet 00:00: involving mouth st 00 multiple daily sites with positive rheumatoid factor (HCC) XOPENEX HFA Yes USE 2 [place] on 45 8-13 (TWO) Methodi mcg/actuati 00:00: PUFFS st on inhaler 00 EVERY FOUR HOURS, NEEDED DULoxetine Yes 60mg QD Take 60 mg [place] (CYMBALTA) 8-01 by mouth Metho di 60 MG 00:00: daily. st capsule 00 topiramate Yes 100mg Q.5D Take 100 [place] (TOPAMAX) 7-06 mg by Methodi 100 MG 00:00: mouth 2 st tablet 00 (two) times a day. Take 2 tablets twice a day omeprazole 2020- No [place] (PriLOSEC) 5-18 09-10 Methodi 40 MG 00:00: 00:00 st capsule 00 :00 zolpidem Yes Rheumatoid QD nightly as [place] (AMBIEN) 10 5-11 arthritis needed. Methodi mg tablet 00:00: involving st 00 multiple sites with positive rheumatoid factor (HCC) levofloxaci Yes [facility] 9-15 [facility] - (LEVAQUIN) 00:00: Medical 750 MG 00 Center tablet budesonide- Yes Inhale by C HI [facility] formoterol 9-13 mouth via Luke s - (SYMBICORT) 16:47: inhaler as Medical 80-4.5 03 needed . Center mcg/actuati on inhaler albuterol Yes 1{puff} Inhale [address] HFA 9-13 puff by [facility] - (VENTOLIN 16:41: mouth via Med ical HFA) 90 34 inhaler Center mcg/actuati every 6 on inhaler (six) hours as needed . acyclovir Yes 800mg Take [address] (ZOVIRAX) 9-13 mg by [facility] - 800 MG 11:09: mouth. Medical tablet 08 Center butorphanol Yes None [facility] (STADOL) 10 9-13 Entered. Luke s - mg/mL nasal 11:07: Medica l spray 37 [place] estrogens, Yes [address] conjugated, 9-13 DAILY. [facility] - (PREMARIN) 11:07: Medical 0.625 MG 37 [place] tablet fLUoxetine Yes [address] (PROZAC) 20 9-13 EVERY [facility] - MG capsule 11:07: MORNING. Med ical 37 [place] furosemide Yes 40mg Q.5D Take [address] (LASIX) 40 9-13 by mouth 2 Angela es - MG tablet 11:05: (two) Medical 26 times Center daily. BABY Yes Take by [facility] ASPIRIN 9-13 mouth. [facility] - ORAL 11:05: Medical 26 Center carvedilol Yes 12.5mg Take 12.[address] (COREG) 9-13 mg by [facility] - 12.5 MG 11:05: mouth 2 Medical tablet 26 (two) Center times daily with breakfast and dinner. leflunomide Yes 10mg QD Take [address] (ARAVA) 10 9-13 by mouth [facility] - MG tablet 11:05: daily. Medica l 26 [place] HYDROcodone Yes 1{tbl} Take [address] -acetaminop 9-13 tablet by Angela es - hen (NORCO 11:05: mouth Medica l 10-325) 26 every 6 Center 10-325 mg (six) per tablet hours as needed for Pain. SANTYL [address] unit/gram 8-09 [facility] - ointment 00:00: Medical 00 [place] predniSONE Yes [facility] (DELTASONE) 7-26 [facility] - 5 MG tablet 00:00: Medica l 00 [place] BUTRANS [address] mcg/hour 7-25 [facility] - PTWK 00:00: Medical 00 [place] topiramate Yes [facility] (TOPAMAX) 7-01 [facility] - 50 MG 00:00: Medical tablet 00 [place] gabapentin Yes 3{tbl} Take [address] (GRALISE) 4-12 tablets by Luke s - 600 mg Tb24 00:00: mouth. Medi praivn 00 Center Vital Signs Vital Name Observation Time Observation Value Comments Source Systolic blood 2020-07-17 09:53:00 96 mm[Hg] Tono collazo [facility] pressure Diastolic blood 2020-07-17 09:53:00 55 mm[Hg] Brandon johnston [facility] pressure Heart rate 2020-07-17 09:53:00 74 /min Raffaele Garcia Body temperature 2020-07-17 09:53:00 36.39 Ariella Ray Garcia Respiratory rate 2020-07-17 09:53:00 18 /min Ray Garcia Body weight 2020-07-17 09:53:00 96.163 kg Raffaele Garcia BMI 2020-07-17 09:53:00 37.55 kg/m2 Raffaele Garcia Body height 2020-07-17 09:44:00 160 cm Raffaele Garcia Oxygen saturation in 2020-07-17 09:44:00 98 /min Raffaele Garcia Arterial blood by Pulse oximetry Systolic blood 2020-04-09 16:06:34 118 mm[Hg] pressure Diastolic blood 2020-04-09 16:06:34 60 mm[Hg] MD Barone derson pressure Heart rate 2020-04-09 16:06:34 85 /min MD Luis belle Body temperature 2020-04-09 16:06:34 37 Ariella MD Margot bensonon Respiratory rate 2020-04-09 16:06:34 17 /min MD Margot caldera Body weight 2020-04-09 16:06:34 100.8 kg MD Smith son BMI 2020-04-09 16:06:34 39.38 kg/m2 MD Smith son Oxygen saturation in 2020-04-09 16:06:34 93 /min MD Carlisle Arterial blood by Pulse oximetry Procedures Procedure Date / Time Performing Source Performed Clinician HEPATITIS B SURFACE ANTIGEN 2020-05-20 Kevin Keane [facility] 09:55:00 HEPATITIS B CORE ANTIBODY TOTAL 2020-05-20 Kevin Keane [facility] 09:55:00 QUANTIFERON-TB GOLD PLUS, 1 2020-05-20 Kevin Keane [facility] TUBE 09:55:00 HC COMPLETE BLD COUNT W/AUTO 2020-04-23 Kevin Keane [place] [facility] DIFF 12:15:00 COMPREHENSIVE METABOLIC PANEL 2020-04-23 Kevin Keane [facility] 12:15:00 C-REACTIVE PROTEIN 2020-04-23 Kevin Keane Met [facility]odist 12:15:00 SEDIMENTATION RATE 2020-04-23 Kevin Keane Met [facility] 12:15:00 URINALYSIS, AUTOMATED WITH 2020-04-23 Kevin Keane [facility] MICROSCOPY 12:15:00 ESTIMATED GFR 2020-04-23 Kevin Keane Method ist 12:15:00 MAGNESIUM LEVEL 2020-02-17 Alex Mckinney MD 15:11:00 POTASSIUM LEVEL 2020-02-17 Alex Mckinney MD 15:11:00 SODIUM LEVEL 2020-02-17 Alex Mckinney MD 15:11:00 RENIN ACTIVITY, PLASMA 2020-02-17 Alex Mckinney MD on 15:11:00 ALDOSTERONE 2020-02-17 Alex Mckinney MD 15:11:00 CORTISOL 24 HOUR URINE 2020-02-17 Alex Mckinney MD on 15:04:00 CT CHEST ABDOMEN PELVIS W WO 2020-01-09 Ivania Dawson CONTRAST ADRENALS 18:11:37 CATECHOLAMINES FRACTIONATED 2020-01-09 Ivania Dawson MD FREE 15:35:00 ADRENOCORTICOTROPIC HORMONE 2020-01-09 Ivania Dawson MD 14:54:00 CORTISOL 2020-01-09 Ivania Dawson MD 14:54:00 ALDOSTERONE 2020-01-09 Ivania Daswon MD 14:54:00 RENIN ACTIVITY, PLASMA 2020-01-09 Ivania Dawson MD Augustine rson 14:54:00 METANEPHRINES FRACTIONATED 2020-01-09 Ivania Dawson MD 14:54:00 DEHYDROEPIANDROSTERONE SULFATE 2020-01-09 Ivania Dawson MD 14:54:00 TESTOSTERONE LEVEL 2020-01-09 Ivania Dawson MD 14:54:00 COMPREHENSIVE METABOLIC PANEL 2020-01-09 Ivania Dawson MD 14:54:00 GLUCOSE LEVEL 2020-01-09 Ivania Dawson MD 14:54:00 BLOOD UREA NITROGEN 2020-01-09 Ivania Dawson MD n 14:54:00 ELECTROLYTE PANEL 2020-01-09 Ivania Dawson MD 14:54:00 SERUM CREATININE 2020-01-09 Ivania Dawson MD 14:54:00 .GLOMERULAR FILTRATION RATE 2020-01-09 Ivania Dawson MD 14:54:00 CALCIUM LEVEL TOTAL 2020-01-09 Ivania Dawson MD n 14:54:00 ALBUMIN LEVEL 2020-01-09 Ivania Dawson MD 14:54:00 ALKALINE PHOSPHATASE 2020-01-09 Ivania Dawson MD on 14:54:00 ALANINE AMINOTRANSFERASE 2020-01-09 Ivania Dawson MD 14:54:00 ASPARTATE AMINOTRANSFERASE 2020-01-09 Ivania Dawson MD 14:54:00 TOTAL PROTEIN 2020-01-09 Ivania Dawson MD 14:54:00 FRACTIONATED BILIRUBIN 2020-01-09 Ivania Dawson MD rson 14:54:00 CBC WITH PLATELET AND 2019-10-24 Kevin Keane [facility] DIFFERENTIAL 14:02:00 COMPREHENSIVE METABOLIC PANEL 2019-10-24 Kevin Keane [facility] 14:02:00 C-REACTIVE PROTEIN 2019-10-24 Kevin Keane Met [facility]odist 14:02:00 SEDIMENTATION RATE 2019-10-24 Kevin Keane Met [facility]ist 14:02:00 URINALYSIS, AUTOMATED WITH 2019-10-24 Kevin Keane [facility] MICROSCOPY 14:02:00 MICROSCOPIC EXAMINATION 2019-10-24 Kevin Keane [facility] 14:02:00 Plan of Care Planned Activity Planned Date Details Comments Source Future Scheduled 2020-08-07 INFLUENZA VACCINE [facility] [facility] Test 00:00:00 [code = INFLUENZA VACCINE] Future Scheduled 2018-08-[address] [facility] - Test 00:00:00 [code = INFLUENZA Medical Ce nter VACCINE] Future Scheduled 2015 65+ PNEUMOCOCCAL [place] [facility] Test 00:00:00 VACCINE (1 of 2 - PCV13) [code = 65+ PNEUMOCOCCAL VACCINE (1 of 2 - PCV13)] Future Scheduled 2000 BREAST CANCER [facility] thodist Test 00:00:00 SCREENING [code = BREAST CANCER SCREENING] Future Scheduled 2000 COLONOSCOPY SCREENING [facility] Test 00:00:00 [code = COLONOSCOPY SCREENING] Future Scheduled 2000 [facility]INES (#[facility] Test 00:00:00 [code = SHINGLES VACCINES (#1)] Encounters Start End Encounter Admission Attending Care Care Encounter Source Date/Time Date/Time Type Type Clinicians Facility Department ID 2020-07-09 Outpatient SYSTEMTATA MDA [id number] 17:00:04 PROVIDER [place] o zay 2020-05-27 Outpatient SURIMA, TATA PAYTON [id number] 11:57:19 KUNAL collazo 2020-05-26 Outpatient SYSTEM, MDA MDA [id number] 14:41:46 NIESHA collazo 2020-05-13 Outpatient FURROW, MDA MDA [id number] 09:03:37 JP collazo 2020-07-17 2020-07-17 Outpatient KEANE, [facility] [id number] [place] 00:00:00 00:00:00 KEVIN [address] 2020-07-17 2020-07-17 Outpatient [facility] [id number] [place] 00:00:00 00:00:[address] 2020-07-08 2020-07-08 Outpatient EL FRITZ, MDA MDA [id number] 00:00:00 00:00:00 YINKA collazo 2020-06-03 2020-06-03 Outpatient [facility] [id number] [place] 00:00:00 00:00:[address] 2020-05-27 2020-05-27 Outpatient EL FRITZ, MDA MDA [id number] 00:00:00 00:00:00 YINKA collazo 2020-05-20 2020-05-20 Outpatient EL FRITZ, MDA MDA [id number] 00:00:00 00:00:00 YINKA collazo 2020-05-20 2020-05-20 Outpatient [facility] [id number] [place] 00:00:00 00:00:[address] 2020-04-23 2020-04-23 Outpatient KEANE, [facility] [id number] [place] 00:00:00 00:00:00 KEVIN [address] 2020-04-23 2020-04-23 Outpatient KEANE, [facility] [id number] [place] 00:00:00 00:00:00 KEVIN [address] Results Test Description Test Time Test Comments Results Result Comments Source Hepatitis B surface antigen 2020-05-23 22:24:00 Test Item Value Reference Range Interpretation Comme nts Hepatitis B surface Ag (test code NON-REACTIVE NON-REACTIVE = 5196-1) RAC (test code = RAC) Performing Organization Information: Site ID: [id number] Name: [facility] Address: [address] [place] [id number] Director: Cleveland Sampson [place] MethodistHepatitis B core antibody [id number] 22:24:00 Test Item Value Reference Range Interpretation Comments Hepatitis B core NON-REACTIVE NON-REACTIVE total Ab (test code = 04881-5) RAC (test code = RAC) Performing Organization Information: Site ID: [id number] Name: [facility] Address: [address] [place] [id number] Director: [place] Sampson [facility] MethodistQuantiFERON-TB Gold Plus, 1 [id number] 22:24:00 Test Item Value Reference Interpretation Comments Range Quantiferon TB NEGATIVE NEGATIVE Negative test result. gold plus (test M. tuberculo sis code = 83135-3) complex infe ction unlikely. Quantiferon NIL 0.05 IU/mL (test code = 14646-8) Quantiferon >10.00 IU/mL mitogen minus NIL (test code = 55549-1) Quantiferon plus <0.00 IU/mL TB1 minus NIL (test code = 25366-6) Quantiferon plus <0.00 IU/mL The Nil tu be value TB2 minus NIL reflects the (test code = background 5774) interferongamma immune response of the patient's blood sample.This aravind ue has been subtracted from the patient'sdi splayed TB and Mitogen results. Lower than expected result s with the Mitogen tubeprevent false-negative Quantiferon alfredo dings bydetecting a p atient with a potentia l immunesuppressi ve condition and/o r suboptimal pre-analyticals pecimen handling. The T B1 Antigen tube is coated with theM. tuberculosis-sp ecific antigens design ed to elicitresponses from TB antigen prim ed CD4+ helperT-lymphoc ytes. The TB2 Antigen tube is coated with theM. tuberculosis-sp ecific antigens design ed to elicitresponses from TB antigen prim ed CD4+ helper and CD8+cytotoxic T-lymphocytes. For additional information, pl ease refer tohttps://educa bradly.Diet TV. True Pivot/faq /ONQ593(This li nk is being provided for informational/e ducatio nal purposes on ly.) RAC (test code = Performing RAC) Organization Information: Site ID: KARLOS Name: [facility] Address: [address] [place] [address] Director: [place] Sampson [facility] MethodistComprehensive metabolic [id number] 14:17:40 Test Item Value Reference Range Interpretation Comments Sodium (test code = 141 135- 148 mEq/L 2951-2) Potassium (test code = 3.1 3.5- 5.0 mEq/L L 2823-3) Chloride (test code = 91 98- 112 mEq/L L 2075-0) CO2 (test code = 2027-9) 33 24- 31 mEq/L H Anion gap (test code = 17@ANIO 7- 15 mEq/L H 14295-8) BUN (test code = 3094-0) 29 mg/dL 8-23 H Creatinine (test code = 1.39 mg/dL 0.5-0.9 H 2160-0) Glucose (test code = 100 mg/dL 65-99 H 2345-7) Calcium (test code = 9.4 mg/dL 8.8-10.2 47177-2) Protein (test code = 7.7 g/dL 6.3-8.3 -[place] n 2885-2) 4.6-7.0 g/dL1 week 4.4-7 .6 g/dL7 months-1y ear 5.1-7 .3 g/dL1-2 years 5.6-7 .5 g/dL>3 years 6.0-8 .0 g/gG57-306 6.3-8 .3 g/dL Albumin (test code = 3.5 g/dL 3.5-5 1751-7) A/G ratio (test code = 0.8 0.7-3.8 1759-0) Alkaline phosphatase 87 U/L 35-104 (test code = 6768-6) AST (test code = 1920-8) 21 U/L 10-35 ALT (test code = 1742-6) 21 U/L 5-50 Total bilirubin (test 0.3 mg/dL 0-1.2 code = 1974-2) Lab Interpretation (test Abnormal code = 51448-3) [facility] MethodistC-reactive [id number] 13:58:06 Test Item Value Reference Range Interpretation Comments CRP (test code = 1987-) 2.33 mg/dL 0-0.5 H Lab Interpretation (test code = Abnormal 25184-4) Raffaele MethodistEstimated [id number] 13:58:03 Test Item Value Reference Range Interpretation Comments Estimated GFR (test 38 mL/min/1.73 m2 Margot huff Units code = 5488) InterpretationG 1 >=90 Parisa l or highG2 60-89 Mildly decrease dG3a 45-59 Mil dly to moderately decr izzckZ1i 30-44 Moderately to s everely decreasedG4 15-29 Severe ly decreasedG5 <15 Kidney oneil lureThe eGFR was calcul ated using the Chron Kidney Disease Epidemiology Collaboration ( CKD-EPI) equation. Interpretation is based on recommendati ons of the National dney [facility]-Kidn ey Disease Outcome s Quality Initiat valerie (NKF-KDOQI) pub lished in 2013. Lab Interpretation Abnormal (test code = 85622-1) Raffaele MethodistUrinalysis, automated with skfudephni6999-43-52 13:49:10 Test Item Value Reference Range Interpretation Comments Color, UA (test code = 5778-6) Straw Appearance, UA (test code = 5767-9) Clear Specific gravity, UA (test code = 1.012 1.001-1.035 5811-5) pH, UA (test code = 5803-2) 5.0 5.0-8.5 Protein, UA (test code = 09845-3) Negative Negative Glucose, UA (test code = 15161-3) Negative Negative Ketones, UA (test code = 2514-8) Negative Negative Bilirubin, UA (test code = 5770-3) Negative Negative Blood, UA (test code = 5794-3) Negative Negative Nitrite, UA (test code = 5802-4) Negative Negative Urobilinogen, UA (test code = <2.0 <2.0 30026-7) Leukocyte esterase, UA (test code = Negative Negative 5799-2) Epithelial cells, UA (test code = 3 /HPF 5787-7) WBC, UA (test code = 5821-4) <1 0- 4 /HPF RBC, UA (test code = 03061-4) 1 0- 5 /HPF Bacteria, UA (test code = 79962-7) None seen None seen Hyaline casts, UA (test code = 11 /LPF 5796-8) Yeast, UA (test code = 68659-7) None seen Yeast with pseudohyphae, UA (test None seen code = 97574-7) [place] MethodistSedimentation lduq2802-96-72 13:40:17 Test Item Value Reference Range Interpretation Comments Sedimentation rate (test code = 15 0- 20 mm/hr 78508-3) [facility] MethodistCBC with platelet and nzgnlfwdexck0514-31-64 13:14:30 Test Item Value Reference Range Interpretation Comments WBC (test code = 76766-2) 12.50 4.50- 11.00 k/uL H RBC (test code = 63689-7) 4.66 m/uL 4.2-5.5 HGB (test code = 718-7) 15.3 g/dL 12-16 HCT (test code = 4544-3) 47.0 % 37-47 MCV (test code = 787-2) 100.9 fL 82-100 H MCH (test code = 785-6) 32.8 pg 27-34 MCHC (test code = 786-4) 32.6 g/dL 31-37 RDW - SD (test code = 49.7 fL 37-55 78886-6) MPV (test code = 63440-8) 10.4 fL 8.8-13.2 Platelet count (test code 293 150- 400 k/uL = 79885-5) Nucleated RBC (test code 0.00 /100 WBC = 53513-6) Neutrophils (test code = 69.2 % 39-69 H 12998-4) Lymphocytes (test code = 14.2 % 25-45 L 45741-4) Monocytes (test code = 9.1 % 0-10 06786-2) Eosinophils (test code = 6.1 % 0-5 H 55815-2) Basophils (test code = 1.0 % 0-1 00635-5) Immature granulocytes 0.4 % 0-1 "Immat ure (test code = 86588-9) granul ocytes" (promyelocytes, myelocytes, metamyelocytes) Lab Interpretation (test Abnormal code = 86703-7) Raffaele JtnhipvjqFhxctcxoycp6503-35-36 18:45:16 Test Item Value Reference Interpretation Comments Range Aldosterone-Lindo 37 ng/dL <=21 H ---------ADDITIONA (test code = L 1763-2) INFORMATION---- -Reference rang e for patients 11 years and ol cristel is based onupright A.M. collection from subjects w ithout sodiumrestricti ons.This test was developed a nd its performance characteristics determined by [facility] in a manner consistent with CLIArequirement s. This test has not been cl eared or approved by[facility] U.S. Food and Drug Administra tion. Test Performed by:[facility] [place] [id number] Direct or: Ray Deleon M.D. Ph. D.; CLIA# [id number] Lab Interpretation Abnormal (test code = 46013-1) MD Lemus Smgvmztk1801-89-34 12:25:16 Test Item Value Reference Range Interpretation Comments Renin 7.4 ng/mL/hr -----REFERENCE Activity-Jackson VALUE--------- (Pe (test code = ripheral vein s pecimen)Na-deplete, 2945-7) upright: Mean: 5.9 Range: 2.9-10.8Na-repl ete, upright: Mean: 1.0 Rang e: < or =0.6-3.0 ----ADDITIONAL INFORMATION---- Test ing performed b y Liquid Chromatography- Tandem MassSpectrometr y (LC-MS/MS).This test was devjorge lo ped and its performance characteristics determined by [facility] in a man ner consistent with CLIArequirement s. This test has not been cleare d or approved bythe U.S. Food and D rug Administration. Test Performed by:[facility] [address] [facility] ior [place], [place] [address]Lab Director: Ray damon M.D. Ph.D.; CLIA# [id number] MD CarlisleCortisol 24 HR Hmmbu9995-62-29 08:55:14 Test Item Value Reference Interpretation Comments Range U24 Cortisol - Lindo 1.9 3.5- 45 L (test code = mcg/24hr 25080-9) HRS CORTISOL - 24 hr LINDO (test code = 44824-7) Total Volume (test 1700 mL -------- ADDITIONA code = 3167-4) L INFORMATION---- -This test was developed and its performance characteristics determined by [facility] in a manner consistent with CLIArequirement s. This test has not been cl eared or approved bythe U.S. Food and Drug Administra tion. Test Performed by:[facility] [address] [place] [address], [place], [place] [address]Asw Direct or: Ray Deleon M.D. Ph. D.; CLIA# [id number] Lab Interpretation Abnormal (test code = 06086-2) MD CarlislePotassium Npshf2859-30-86 15:48:31 Test Item Value Reference Range Interpretation Comments Potassium Lvl (test code = 6854) 3.8 3.5- 5.1 mEq/L MD CarlisleSodium Lwemu3179-60-11 15:48:30 Test Item Value Reference Range Interpretation Comments Sodium Lvl (test code = 7355) 139 136- 145 mEq/L MD CarlisleMagnesium Olsmz3017-25-84 15:48:29 Test Item Value Reference Range Interpretation Comments Magnesium (test code = 6359) 2.3 mg/dL 1.6-2.6 MD CarlisleMetanephrines Fwsgrqdjwysj7594-99-39 18:15:05 Test Item Value Reference Interpretation Comments Range Normetane 1.4 nmol/L <0.90 H Free-Lindo (test code = 54519-4) Metanephr <0.20 <0.50 nmol/L -----ADDITION Free-Lindo (test AL code = 11090-4) INFORMATION- --This test was developed and its perform ance characteristics determined by [facility] in a manner consistent with CLIArequirement s. This test has not been cl eared or approved bythe U.S. Food and Drug Administra tion. Test Performed by:[facility] [address], [place], [place] [address]Qxn Direct or: Ray Deleon M.D. Ph.D.; CLIA# [id number] Lab Interpretation Abnormal (test code = 24618-2) OrestesCatecholamines Fractionated Ggfw5219-77-89 20:21:44 Test Item Value Reference Interpretation Comments Range Norepineph 713 pg/mL -----REFERENCE Lvl-Jackson (test VALUE-------- code = 6498) -70-750 (Supine )200-1700 (Standing) Epinephrine <25 pg/mL -----REFERENCE Lvl-Jackson (test VALUE-------- code = 5522) -<111 (Supine)< 141 (Standing) Dopamine <25 pg/mL -----REFERENCE Lvl-Jackson (test VALUE-------- code = 5467) -<30 (no postur al change) ----ADDITIONAL INFORMATION---- PLEASE NOTE: Hi gh/Low flagging is based on sup ine normalvalues.Th is test was developed and i ts performance characteristics determined by [facility] in a manner consistent with CLIArequirement s. This test has not been cl eared or approved bythe U.S. Food and Drug Administra tion. Test Performed by:[facility] [address], [place], [place] [address]Pbw Direct or: Ray Deleon M.D. Ph. D.; CLIA# [id number] MD CarlisleDHEA [id number] 19:59:47 Test Item Value Reference Range Interpretation Comments DHEAS-Jackson (test code = <5.0 9.7- 159 mcg/dL L Test Performed 2191-03) by:[facility] [address], [place], [place] [address]Rna Dir lian: Ray damon M.D. Ph.D.; CLI A# [id number] Lab Interpretation (test Abnormal code = 22839-9) MD CarlisleCT Chest Abdomen Pelvis with and without Contrast Idwgdgwn1309-69-68 19:44:52 1. Stable slight but continuously enlarging right adrenal mass.2. Relatively stable left adrenal nodule.3. No new focal abnormality. Interface, Radiology Results In - 01/09/2020 1:47 PM CSTFULL RESULT:Examination: CT CHEST ABDOMEN PELVIS W WO CONTRAST ADRENALS, 01/09/2020 12:11 PMClinical History: Bi lateral mass of adrenal glandsIndication: bilateral adrenal massesComparison: Previous CTs includingthe most recent exam of 12/22/2018Technique: CT of the abdomen was performed without intravenous contrast followed by CT of the chest, abdomen, and pelvis with intravenous contrast.Findings: Minimal subsegmental atelectasis and the lungs. No evidence of metastasis or acute parenchymal change.Benign-appearing thyroid in the expected location. Small volume mediastinal lymph nodes have been stable.A few,prominent axillary lymph nodes have been stable. Calcified coronary arteries.Status post cholecystectomy. The liver is unremarkable. Spleen is within normal limit.Again is noted of the bilateral adrenal nodules, measuring approximately 6 x 4.8 cm in its greatest cross-sectional dimension on the right and 12 mm on the left. These were approximately 5.4 x 4.3 cm and 12 mm, respectively, in 2019 and the4.9 x 3.5 cm and 11 mm, respectively, in 2018. The masses have been morphologically stable.The rest of the intra-abdominal solid organs remain otherwise unremarkable.No evidence of lymphadenopathy in either abdomen or pelvis.Status post hysterectomy. Loops of bowel are within normal limits.Bones and soft tissue show no new focal abnormality.IMPRESSION:1. Stable slight but continuously enlarging rightadrenal mass.2. Relatively stable left adrenal nodule.3. No new focal abnormality.MD CarlisleCdfamwnlJDIL5548-16-24 18:53:13 Test Item Value Reference Range Interpretation Comments ACTH (test code = 4643) 3 pg/mL 7-63 L Resu lts greater than 2000 pg/mL may not be reliable due to matrix effect w ith extended diluti on as it exceeds the radio communication coordinator s recommended l imit. Caution should be exercised when interpreting peters ch values and done in conjunction wit h clinical context.Note: N ew Methodology and Reference Range change effectiv e 02/23/2018 at 14 00 Lab Interpretation (test Abnormal code = 18071-4) MD CarlisleBzdowdalPybahmjgncny1587-87-81 17:19:41 Test Item Value Reference Range Interpretation Comments Testoster Tot (test code <33 3-41 Ref erence Ranges: Male: = 7607) Age 20 - 49 249 - 836 Age >=50 193 - 74 0 Female: Age 20 - 49 8 - 48 Age >=50 3 - 4 1 MD CarlisleFractionated Bvvdaoxod7880-04-37 16:39:41 Test Item Value Reference Range Interpretation Comments Bili Total (test 0.3 mg/dL <=1.2 Indocyanine Green (ICG) code = 5096) may cause false ly elevated biliru bin results. Total and direct bilirubin must not be measured from s amples containing indo cyanine green. False el evation of total bilirubin can be seen in patient s with IgG concentrations above 28 g/L. Bili Direct (test 0.1 mg/dL <=0.3 Indocyanin e Green (ICG) code = 5094) may cause false ly elevated biliru bin results. Total and direct bilirubin must not be measured from s amples containing indo cyanine green. Bili Indirect (test 0.2 mg/dL 0-0.9 code = 5095) MD CarlisleGlomerular Filtration [id number] 16:39:40 Test Item Value Reference Range Interpretation Comments eGFR-AA (test code = 54 >=60 mL/min/1.73 L Nor mal eGFR: >= 60 8062) sq. m mL/min/1.73 m2N ote: The eGFR is pravin culated using the CKD-E PI equation. The e GFR declines with a ge. eGFR <60 mL/min /1.73 m2 is considere d as "decreased". Th is equation should only be used for pat ients 18 and older. According to th e National Kidney Foundation's dney Disease Outcome Quality Initiat valerie (KDOQI) classif ication and 2012 Kidney Disease Improvi ng Global Outcomes (KDIGO) Clinica l Practice Guidel ine, the stage of CK D should be categ orized based on estima charity GFR. Stage Desc ription GFR mL/mi n/1.73 m21 Normal or h igh GFR >=902 Mildly decreased GFR 60-893a M ildly to moderately decreased GFR 45-593b Moderat colin to severely decrea sed GFR 30-444 Dana rely decreased GFR 15-295 Kidney f ailure <15 eGFR-OLAMIDE (test code = 47 >=60 mL/min/1.73 L No rmal eGFR: >= 60 8063) sq. m mL/min/1.73 m2N ote: The eGFR is pravin culated using the CKD-E PI equation. The e GFR declines with a ge. eGFR <60 mL/min /1.73 m2 is considere d as "decreased". Th is equation should only be used for pat ients 18 and older. According to th e National Kidney Foundation's dney Disease Outcome Quality Initiat valerie (KDOQI) classif ication and 2012 Kidney Disease Improvi ng Global Outcomes (KDIGO) Clinica l Practice Guidel ine, the stage of CK D should be categ orized based on estima charity GFR. Stage Desc ription GFR mL/mi n/1.73 m21 Normal or h igh GFR >=902 Mildly decreased GFR 60-893a M ildly to moderately decreased GFR 45-593b Moderat colin to severely decrea sed GFR 30-444 Dana rely decreased GFR 15-295 Kidney f ailure <15 Lab Interpretation Abnormal (test code = 83044-7) MD CarlisleAlkaline Wmlzttakzpf8720-47-97 16:39:39 Test Item Value Reference Range Interpretation Comments Alk Phos (test code = 4768) 81 U/L 35-104 MD CarlisleAlbumin [id number] 16:39:37 Test Item Value Reference Range Interpretation Comments Albumin Lvl (test code = 4763) 4.3 3.5- 5.2 gm/dL MD CarlisleTotal [id number] 16:39:36 Test Item Value Reference Range Interpretation Comments Total Protein (test code = 7649) 7.3 6.4- 8.3 gm/dL MD CarlisleAspartate Nbomwhsllcnxekgy4712-72-38 16:39:35 Test Item Value Reference Range Interpretation Comments AST (test code = 4731) 27 U/L <=32 MD CarlisleCalcium [id number] 16:39:34 Test Item Value Reference Range Interpretation Comments Calcium Lvl (test code = 5258) 9.6 mg/dL 8.4-10.2 MD CarlisleElectrolyte [id number] 16:39:33 Test Item Value Reference Range Interpretation Comments Sodium Lvl (test code = 7355) 137 136- 145 mEq/L Potassium Lvl (test code = 6854) 2.9 3.5- 5.1 mEq/L L Chloride (test code = 5279) 89 98- 107 mEq/L L CO2 (test code = 5227) 35 22- 29 mEq/L H Anion Gap (test code = 9325) 13 4- 14 mEq/L Lab Interpretation (test code = Abnormal 07175-1) MD CarlisleRkrqcamyGVJ6164-79-46 16:39:32 Test Item Value Reference Range Interpretation Comments ALT (test code = 4705) 25 U/L <=33 MD Carlisle.Serum Oqzxgjwpfe6740-61-60 16:39:31 Test Item Value Reference Range Interpretation Comments Creatinine (test code = 5399) 1.19 mg/dL 0.51-0.95 H Lab Interpretation (test code = Abnormal 33081-3) MD CarlisleNvaxcuiaVAQ3241-44-84 16:39:30 Test Item Value Reference Range Interpretation Comments BUN (test code = 5055) 24 mg/dL 6-23 H Lab Interpretation (test code = Abnormal 62297-4) MD CarlisleGlucose Vdbwd8787-23-77 16:39:29 Test Item Value Reference Range Interpretation Comments Glucose Level (test code 103 mg/dL 70-99 H Ref erence range is = 5699) valid for fasti ng specimens only. Guidelines established by the [place] Diab[employer] es Association guidelines (Standards of Medical Care in Diabetes 2016. Diabetes Care 2 016; 39: S13-22) are that a fasting gluco se of greater than or equal to 126 mg /dL or a random glu cose greater than or equal to 200 mg /dL with symptoms, that are confirmed b y repeat testing on a different day, meet the criteria fo r diabetes mellit us. Lab Interpretation (test Abnormal code = 37515-0) MD CarlisleCortisol, Wtzxs5616-85-22 16:39:27 Test Item Value Reference Range Interpretation Comments Cortisol (test code = 2.56 4.80- 19.50 mcg/dL L Serum Cortisol 5357) Reference Range s: Morning (6-10 am) (4.82 - 19.5)Afternoon (4-8pm) (2.47 - 11.9) Lab Interpretation (test Abnormal code = 23865-5) MD CarlisleMicroscopic Nrodegphskz3411-84-59 09:10:00 Test Item Value Reference Range Interpretation Comments WBC, UA (test code = 0-5 0- 5 /hpf 5821-4) RBC, UA (test code = None seen 0- 2 /hpf 61777-0) Epithelial cells (non 0-10 0- 10 /hpf renal) (test code = 5787-7) Casts (test code = Present None seen /lpf A 05026-4) Cast type (test code = Hyaline casts N/A 92545-0) Mucus, UA (test code = Present Not Estab. 8247-9) Bacteria, UA (test code = Few None seen/Few 5769-5) KHURRAM (test code = KHURRAM) Performed at: [facility] [id number] Director: Ankur Wellington MD, Phone: [phone] Lab Interpretation (test Abnormal code = 59655-7) Raffaele Garcia
[2020-07-18] MEDS ORDERED: KETOROLAC 30 MG/ML INJ ONE (11:53)
[2020-07-18] MEDS ORDERED: NA CHLORIDE 0.9% 1,000 ML ONE (11:53)
[2020-07-18] MEDS ORDERED: ALBUTEROL 2.5 MG/3 ML NEB SOL ONE (11:53)
[2020-07-18] MEDS ORDERED: METHYLPREDNISOLONE 125 MG INJ ONE (11:53)
[2020-07-18] MEDS ORDERED: IPRATROPIUM BROM 0.5MG/2.5ML ONE (11:53)
[2020-07-18] MEDS ORDERED: METOCLOPRAMIDE 10 MG/2mL INJ ONE (11:53)
[2020-07-18] MEDS ORDERED: AZITHROMYCIN IV 500 MG in NA CHLORIDE 0.9% 250 ML IVPB ONE (12:00)
[2020-07-18 12:04] LABS: Absolute Lymphocytes (CBC) 0.4 K/uL (0.7-4.9); Hematocrit 39.5 % (36.0-45.0); Lymphocytes % 4.5 % (15.3-44.8); MPV 8.6 fL (7.6-11.3); RBC Red Blood Cell Count 4.08 M/uL (3.86-4.86)
--- NOTE | 2020-07-18 12:22 | RAD REPORT ---
EXAM DESCRIPTION: RAD - Chest Single View - 07/18/2020 12:05 pm CLINICAL HISTORY: CONGESTION Chest pain. COMPARISON: Chest Pa And Lat (2 Views) dated 09/19/2019; CHEST PA AND LAT 2 VIEW dated 01/19/2016; CH EST PA AND LAT 2 VIEW dated 11/21/2015; CHEST PA AND LAT 2 VIEW dated 11/03/2015 FINDINGS: Portable technique limits examination quality. Interstitial lung markings are mildly prominent which may be related to mild interstitial pulmonary e sharmila or interstitial pneumonia. The heart is normal in size. No displaced fractures.
[2020-07-18 12:23] LABS: Protime INR 1.06
[2020-07-18 12:33] LABS: Albumin 3.1 g/dL (3.4-5.0); Bilirubin Direct 0.1 mg/dL (0-0.2); Bilirubin Total 0.4 mg/dL (0.2-1.0); CKMB Creatine Kinase MB 1.6 ng/mL (0.3-3.6); Magnesium 2.5 mg/dL (1.8-2.4); Protein, Total 7.2 g/dL (6.4-8.2); Troponin (Emerg Dept Use Only) 0.36 ng/mL (0.0-0.045)
[2020-07-18 12:34] LABS: Potassium 2.8 mmol/L (3.5-5.1)
[2020-07-18 13:06] LABS: Arterial Blood Carboxyhemoglob 5.7 % (0-1.5); Blood Gas Oxyhemoglobin 85.4 % (94-97); Blood O2 Saturation 91.5 % (92-98.5)
[2020-07-18] MEDS ORDERED: MAGNESIUM SULFATE 1 gm IVPB 1 GM/100 ML BAG IV ONE (13:29)
[2020-07-18] MEDS ORDERED: KCL 20 MEQ/100 mL IVPB 20 MEQ/100 ML BAG IV ONE (13:29)
--- NOTE | 2020-07-18 14:35 | RAD REPORT ---
EXAM DESCRIPTION: CT - Head Brain Wo Cont - 07/18/2020 2:21 pm CLINICAL HISTORY: Headache COMPARISON: None. TECHNIQUE: Computed axial tomography of the head was obtained. IV contrast was not requested. All CT scans are performed using dose optimization technique as appropriate and may include automated exposure control or mA/KV adjustment according to patient size. FINDINGS: An intracranial bleed is not seen . The ventricles are normal in caliber. No extra-axial fluid collection is noted. Fluid within the sinuses/ mastoids is not seen. IMPRESSION: No acute intracranial abnormality is seen. If patient's symptoms persist MRI of the bra in would be recommended.
--- NOTE | 2020-07-18 14:39 | RAD REPORT ---
EXAM DESCRIPTION: CT - Chest For Pe Angio - 07/18/2020 2:21 pm CLINICAL HISTORY: Shortness breath COMPARISON: 2014 TECHNIQUE: Dynamically enhanced axial 3 mm thick images of the chest were obtained during administra tion of <100> mL Isovue 370 IV contrast. Coronal and oblique reconstruction images were generated and reviewed. Exam utilizes a protocol for optimal evaluation of pulmonary arterial tree. Maximum intensity projections 3D imaging was utilized All CT scans are performed using dose optimization technique as appropriate and may include automated exposure control or mA/KV adjustment according to patient size. FINDINGS: A pulmonary embolus is not seen. A thoracic aortic aneurysm is not noted. A pleural effusion is not seen. A pericardial effusion is not seen. A lung consolidation is not present. IMPRESSION: Negative for a pulmonary embolism.
[2020-07-18] MEDS ORDERED: MORPHINE 4 MG/ML SYR ONE (14:51)
[2020-07-18] MEDS ORDERED: ONDANSETRON 4 MG/2 ML VIAL ONE (14:51)
--- NOTE | 2020-07-18 15:08 | ER ---
Nurse's Notes [facility] Name: Eugene Perrin Age: 69 yrs Sex: Female : 1950 Arrival Date: 07/18/2020 Time: 11:28 Bed 4 Private MD: Diagnosis: Non-ST elevation (NSTEMI) myocardial infarction;Chronic obstructive pulmonary disease with (acute) exacerbation;Hypokalemia;Headache Presentation: 07/18 11:29 Chief complaint: EMS states: called out for generalized weakness that started this em morning, also reports tremors, was 89 % RA, placed on 2 LPM, 100%. Coronavirus screen: Client denies travel out of the [place] in the last 14 days. Ebola Screen: Patient negative for fever greater than or equal to 101.5 degrees Fahrenheit, and additional compatible Ebola Virus Disease symptoms Patient denies exposure to infectious person. Patient denies travel to an Ebola-affected area in the 21 days before illness onset. No symptoms or risks identified at this time. Initial Sepsis Screen: Does the patient meet any 2 criteria? No. Patient's initial sepsis screen is negative. Does the patient have a suspected source of infection? No. Patient's initial sepsis screen is negative. Risk Assessment: Do you want to hurt yourself or someone else? Patient reports no desire to harm self or others. Onset of symptoms was July 18, 2020. 11:29 Method Of Arrival: EMS: [facility] em 11:29 Acuity: WOO 3 em Historical: - Allergies: 11:41 Aspirin; em 11:41 Codeine; em 11:41 vinegar; em - Home Meds: 11:41 topiramate 200 mg oral tab 1 tab 2 times per day [Active]; Lasix 40 mg Oral tab 1 tab em once daily [Active]; gabapentin 300 mg oral cap 1 cap 3 times per day [Active]; hydrocodone-acetaminophen 10-325 mg Oral tab [Active]; prednisone 20 mg Oral tab 1 tab as needed [Active]; guaifenesin 400 mg Oral tab [Active]; melatonin 10 mg Oral tab [Active]; metolazone 5 mg oral tab 1 tab once daily [Active]; aripiprazole 5 mg oral tab 1 tab once daily [Active]; Coreg 12.5 mg Oral tab 1 tab twice a day [Active]; aspirin 81 mg Oral chew 1 tab once daily [Active]; Famotidine Oral [Active]; omeprazole 40 mg Oral cpDR 1 cap once daily [Active]; valacyclovir 500 mg Oral tab 1 tab once daily [Active]; duloxetine 60 mg oral cpDR 1 cap once daily [Active]; zolpidem 10 mg Oral tab 1 tab once daily [Active]; - PMHx: 11:41 CHF; cluster migranes; COPD; Rheumatoid Arthritis; em - Immunization history:: Adult Immunizations up to date. - Social history:: Smoking status: Patient reports the use of cigarette tobacco products, smokes one-half pack cigarettes per day, smokes one pack cigarettes per day. Patient/guardian denies using alcohol, street drugs, The patient lives with family. - Family history:: not pertinent. Screenin:39 Abuse screen: Denies threats or abuse. Nutritional screening: No deficits noted. em Tuberculosis screening: No symptoms or risk factors identified. Fall Risk None identified. Assessment: 11:29 General: Appears in no apparent distress. comfortable, Behavior is calm, cooperative, em appropriate for age, Denies fever. Pain: Denies pain. Neuro: Level of Consciousness is awake, alert, obeys commands, Oriented to person, place, time, situation, Appropriate for age Reports headache weakness Denies dizziness. Respiratory: Airway is patent Respiratory effort is even, unlabored, Respiratory pattern is regular, symmetrical, Breath sounds with wheezes bilaterally. Derm: Skin is intact, is fragile, is thin, Skin is pink, warm \T\ dry. Musculoskeletal: Capillary refill < 3 seconds, Range of motion: intact in all extremities. 12:30 Reassessment: Patient appears in no apparent distress at this time. Patient and/or em family updated on plan of care and expected duration. Pain level reassessed. Patient is alert, oriented x 3, equal unlabored respirations, skin warm/dry/pink. 13:41 Reassessment: Patient appears in no apparent distress at this time. Patient and/or em family updated on plan of care and expected duration. Pain level reassessed. Patient is alert, oriented x 3, equal unlabored respirations, skin warm/dry/pink. Patient states feeling better. Patient states symptoms have improved. 14:54 Reassessment: Patient appears in no apparent distress at this time. Patient and/or em family updated on plan of care and expected duration. Pain level reassessed. Patient is alert, oriented x 3, equal unlabored respirations, skin warm/dry/pink. Patient states feeling better. Patient states symptoms have improved. 15:48 Reassessment: Patient appears in no apparent distress at this time. Patient and/or em family updated on plan of care and expected duration. Pain level reassessed. Patient is alert, oriented x 3, equal unlabored respirations, skin warm/dry/pink. 16:45 Reassessment: Patient appears in no apparent distress at this time. Patient and/or hb family updated on plan of care and expected duration. Pain level reassessed. Patient is alert, oriented x 3, equal unlabored respirations, skin warm/dry/pink. 17:45 Reassessment: Patient appears in no apparent distress at this time. Patient and/or hb family updated on plan of care and expected duration. Pain level reassessed. Patient is alert, oriented x 3, equal unlabored respirations, skin warm/dry/pink. 18:37 Reassessment: Patient appears in no apparent distress at this time. Patient and/or hb family updated on plan of care and expected duration. Pain level reassessed. Patient is alert, oriented x 3, equal unlabored respirations, skin warm/dry/pink. 19:28 General: Appears in no apparent distress. comfortable, Behavior is calm, cooperative, ea appropriate for age. Pain: Denies pain. Neuro: Level of Consciousness is awake, alert, obeys commands, Oriented to person, place, time, situation. Respiratory: Airway is patent Respiratory effort is even, unlabored, Respiratory pattern is regular, symmetrical. Derm: Skin is pink, warm \T\ dry. Musculoskeletal: Circulation, motion, and sensation intact. 20:30 Reassessment: Patient and/or family updated on plan of care and expected duration. Pain ea level reassessed. Patient is alert, oriented x 3, equal unlabored respirations, skin warm/dry/pink. Awaiting on floor orders. 20:50 Reassessment: Patient and/or family updated on plan of care and expected duration. Pain ea level reassessed. Patient is alert, oriented x 3, equal unlabored respirations, skin warm/dry/pink. Pt admitted to second floor. Pt left ED via stretcher per tech. pt tolerating well. Vital Signs: 11:29 BP 97 / 58; Pulse 78; Resp 18; Pulse Ox 100% on R/A; Weight 95.71 kg; Height 5 ft. 3 em in. (160.02 cm); Pain 0/10; 11:58 Temp 99.4(O); em 13:35 BP 92 / 70; Pulse 72; Resp 18; Pulse Ox 97% on 1 lpm NC; em 14:49 BP 92 / 52; Pulse 71; Resp 22; Pulse Ox 94% on 2 lpm NC; em 15:57 BP 99 / 51; Pulse 69; Resp 21; Pulse Ox 94% on 2 lpm NC; em 16:45 BP 99 / 50; Pulse 74; Resp 18; Pulse Ox 95% 2 lpm ; hb 17:46 BP 95 / 50; Pulse 75; Resp 18; Pulse Ox 95% on 2 lpm NC; hb 18:38 BP 101 / 57; Pulse 74; Resp 17; Pulse Ox 96% 2 lpm ; hb 19:28 BP 143 / 88; Pulse 69; Resp 18; Pulse Ox 98% ; ea 20:29 BP 112 / 60; Pulse 73; Resp 18; Pulse Ox 94% on 2 lpm NC; rv 11:29 Body Mass Index 37.38 (95.71 kg, 160.02 cm) em ED Course: 11:28 Patient arrived in ED. em 11:28 Patient has correct armband on for positive identification. Placed in gown. Bed in low mh5 position. Call light in reach. Side rails up X2. Warm blanket given. site monitor on. Pulse ox on. NIBP on. 11:28 Arm band placed on. em 11:29 Marty Saunders, RN is Primary Nurse. em 11:29 Maintain EMS IV. Dressing intact. Site clean \T\ dry. mh5 11:33 Mohan Garber MD is Attending Physician. ma2 11:37 Triage completed. em 12:05 XRAY CXR (1 view) In Process Unspecified. EDMS 12:05 EKG done, by ED staff, reviewed by Mohan Garber MD. mh5 14:21 CT Head Brain wo Cont In Process Unspecified. EDMS 14:21 CT Chest For PE Angio In Process Unspecified. EDMS 15:07 Mohan Wilson MD is Hospitalizing Provider. ma2 19:28 No provider procedures requiring assistance completed. Patient admitted, IV remains in ea place. Administered Medications: 11:49 Drug: AtroVENT Aerosol 0.5 mg Route: Inhalation; hb 11:49 Drug: SOLU-Medrol 125 mg Route: IVP; Site: right antecubital; hb 13:37 Follow up: Response: No adverse reaction em 11:49 Drug: Albuterol 2.5 mg Route: Inhalation; hb 11:49 Drug: NS 0.9% 500 ml Route: IV; Rate: 1 bolus; Site: right antecubital; hb 13:37 Follow up: IV Status: Completed infusion; IV Intake: 500ml em 11:49 Drug: Reglan 10 mg Route: IVP; Site: right antecubital; hb 13:38 Follow up: Response: No adverse reaction; Marked relief of symptoms em 11:49 Drug: TORadol 30 mg Route: IVP; Site: right antecubital; hb 13:37 Follow up: Response: No adverse reaction; Marked relief of symptoms; Pain is decreased em 11:55 Drug: Albuterol 2.5 mg Route: Inhalation; hb 12:38 Drug: AZITHromycin 500 mg Route: IVPB; Infused Over: 1 hrs; Site: right antecubital; em 19:30 Follow up: Response: No adverse reaction; IV Status: Completed infusion ea 13:36 Drug: Magnesium Sulfate 1 grams Route: IVPB; Infused Over: 1 hrs; Site: right em antecubital; 14:53 Follow up: Response: No adverse reaction; IV Status: Completed infusion; IV Intake: em 100ml 14:44 Drug: Zofran (Ondansetron) 4 mg Route: IVP; Site: right antecubital; em 15:44 Follow up: Response: No adverse reaction em 14:46 Drug: morphine 4 mg Route: IVP; Site: right antecubital; em 15:44 Follow up: Response: No adverse reaction; Marked relief of symptoms; Pain is decreased em 14:53 Drug: Potassium Chloride 20 mEq Route: IV; Rate: calculated rate; Site: right em antecubital; 19:29 Follow up: Response: No adverse reaction; IV Status: Completed infusion ea 15:17 Not Given (Physician Discretion): Lovenox 80 mg Sub-Q once ss 15:19 Not Given (Physician Discretion): Lovenox 80 mg Sub-Q once ss 15:26 Drug: Lovenox 1 mg/kg Route: Sub-Q; Site: left lower abdomen; em 15:44 Follow up: Response: No adverse reaction em Intake: 13:37 IV: 500ml; Total: 500ml. em 14:53 IV: 100ml; Total: 600ml. em Outcome: 15:07 Decision to Hospitalize by Provider. ma2 19:29 Instructed on the need for admit, Demonstrated understanding of instructions. ea 20:50 Admitted to Med/surg accompanied by tech, via stretcher, room 214, with oxygen, with ea chart, Report called to Nguyen LOPEZ 20:50 Condition: stable ea 20:57 Patient left the ED. ea Addendum: 07/21/2020 13:14 Addendum: COVID-19 Result: Negative result given to RN to notify pt. Attempted to i w contact pt regarding negative COVID-19 swab results. 13:20 Addendum: COVID-19 Result: Negative result given to RN to notify pt. Notified pt of i w negative COVID 19 swab results. Pt advised that even with a negative test result they should remain in isolation until symptom free for 3 days without medication. Pt also advised to return to the ED for worsening symptoms. Signatures: Dispatcher [employer] Marty Carranza RN Gena Zamora RN RN iw Baxter, Heather, RN RN hb Martinez, [facility] Ashley Johnston RN RN ea Alzahri, Mohammad, MD MD ma2 Zana Gr RN RN rv Smirch, Shelby RN
--- NOTE | 2020-07-18 15:08 | EDPHYS ---
Physician Documentation [facility] Name: Eugene Perrin Age: 69 yrs Sex: Female : 1950 Arrival Date: 07/18/2020 Time: 11:28 Bed 4 Private MD: ED Physician Mohan Garber HPI: 07/18 11:39 This 69 yrs old Female presents to ER via EMS with complaints of General ma2 Weakness. 11:39 general weakness and mild gradual headache . Onset: The symptoms/episode began/occurred ma2 gradually, 3 day(s) ago. Severity of symptoms: At their worst the symptoms were moderate in the emergency department the symptoms are unchanged. The patient has experienced similar episodes in the past. Historical: - Allergies: 11:41 Aspirin; em 11:41 Codeine; em 11:41 vinegar; em - Home Meds: 11:41 topiramate 200 mg oral tab 1 tab 2 times per day [Active]; Lasix 40 mg Oral tab 1 tab em once daily [Active]; gabapentin 300 mg oral cap 1 cap 3 times per day [Active]; hydrocodone-acetaminophen 10-325 mg Oral tab [Active]; prednisone 20 mg Oral tab 1 tab as needed [Active]; guaifenesin 400 mg Oral tab [Active]; melatonin 10 mg Oral tab [Active]; metolazone 5 mg oral tab 1 tab once daily [Active]; aripiprazole 5 mg oral tab 1 tab once daily [Active]; Coreg 12.5 mg Oral tab 1 tab twice a day [Active]; aspirin 81 mg Oral chew 1 tab once daily [Active]; Famotidine Oral [Active]; omeprazole 40 mg Oral cpDR 1 cap once daily [Active]; valacyclovir 500 mg Oral tab 1 tab once daily [Active]; duloxetine 60 mg oral cpDR 1 cap once daily [Active]; zolpidem 10 mg Oral tab 1 tab once daily [Active]; - PMHx: 11:41 CHF; cluster migranes; COPD; Rheumatoid Arthritis; em - Immunization history:: Adult Immunizations up to date. - Social history:: Smoking status: Patient reports the use of cigarette tobacco products, smokes one-half pack cigarettes per day, smokes one pack cigarettes per day. Patient/guardian denies using alcohol, street drugs, The patient lives with family. - Family history:: not pertinent. ROS: 11:39 Constitutional: Negative for fever, chills, and weight loss. ma2 11:39 All other systems are negative. Exam: 11:39 Constitutional: This is a well developed, well nourished patient who is awake, alert, ma2 and in no acute distress. Head/Face: Normocephalic, atraumatic. Eyes: Pupils equal round and reactive to light, extra-ocular motions intact. Lids and lashes normal. Conjunctiva and sclera are non-icteric and not injected. Cornea within normal limits. Periorbital areas with no swelling, redness, or edema. ENT: Nares patent. No nasal discharge, no septal abnormalities noted. Tympanic membranes are normal and external auditory canals are clear. Oropharynx with no redness, swelling, or masses, exudates, or evidence of obstruction, uvula midline. Mucous membranes moist. Neck: Trachea midline, no thyromegaly or masses palpated, and no cervical lymphadenopathy. Supple, full range of motion without nuchal rigidity, or vertebral point tenderness. No Meningismus. Chest/axilla: Normal chest wall appearance and motion. Nontender with no deformity. No lesions are appreciated. Cardiovascular: Regular rate and rhythm with a normal S1 and S2. No gallops, murmurs, or rubs. Normal PMI, no JVD. No pulse deficits. Respiratory: bilateral wheezes and mild hypoxemia spo2 89 on RA, otherwise Lungs have equal breath sounds bilaterally, clear to percussion. No rales, s noted. No increased work of breathing, no retractions or nasal flaring. Abdomen/GI: Soft, non-tender, with normal bowel sounds. No distension or tympany. No guarding or rebound. No evidence of tenderness throughout. Back: No spinal tenderness. No costovertebral tenderness. Full range of motion. Skin: Warm, dry with normal turgor. Normal color with no rashes, no lesions, and no evidence of cellulitis. MS/ Extremity: Pulses equal, no cyanosis. Neurovascular intact. Full, normal range of motion. Neuro: Awake and alert, GCS 15, oriented to person, place, time, and situation. Cranial nerves II-XII grossly intact. Motor strength 5/5 in all extremities. Sensory grossly intact. Cerebellar exam normal. Normal gait. Vital Signs: 11:29 BP 97 / 58; Pulse 78; Resp 18; Pulse Ox 100% on R/A; Weight 95.71 kg; Height 5 ft. 3 em in. (160.02 cm); Pain 0/10; 11:58 Temp 99.4(O); em 13:35 BP 92 / 70; Pulse 72; Resp 18; Pulse Ox 97% on 1 lpm NC; em 14:49 BP 92 / 52; Pulse 71; Resp 22; Pulse Ox 94% on 2 lpm NC; em 15:57 BP 99 / 51; Pulse 69; Resp 21; Pulse Ox 94% on 2 lpm NC; em 16:45 BP 99 / 50; Pulse 74; Resp 18; Pulse Ox 95% 2 lpm ; hb 17:46 BP 95 / 50; Pulse 75; Resp 18; Pulse Ox 95% on 2 lpm NC; hb 18:38 BP 101 / 57; Pulse 74; Resp 17; Pulse Ox 96% 2 lpm ; hb 19:28 BP 143 / 88; Pulse 69; Resp 18; Pulse Ox 98% ; ea 20:29 BP 112 / 60; Pulse 73; Resp 18; Pulse Ox 94% on 2 lpm NC; rv 11:29 Body Mass Index 37.38 (95.71 kg, 160.02 cm) em MDM: 11:33 Patient medically screened. [facility] 11:39 Differential Diagnosis altered mental status, flu, copd exacerbation vs RA flare vs ma2 migrain eheadache vs uti . 15:05 Data reviewed: vital signs, nurses notes. Counseling: I had a detailed discussion with ok2 the patient and/or guardian regarding: the historical points, exam findings, and any diagnostic results supporting the discharge/admit diagnosis, the presence of at least one elevated blood pressure reading (>120/80) during this emergency department visit, the need for further work-up and treatment in the hospital. Response to treatment: the patient's symptoms have markedly improved after treatment. 07/18 11:36 Order name: ABG; Complete Time: 13:17 [facility] 07/18 11:36 Order name: Blood Culture Adult (2) [facility] 07/18 11:36 Order name: BMP; Complete Time: 13:17 [facility] 07/18 11:36 Order name: CBC with Diff; Complete Time: 13:17 [facility] 07/18 11:36 Order name: Ckmb; Complete Time: 13:07/18 11:36 Order name: CPK; Complete Time: 13:07/18 11:36 Order name: D-Dimer; Complete Time: 13:07/18 11:36 Order name: Hepatic Function; Complete Time: 13:07/18 11:36 Order name: Lipase; Complete Time: 13:07/18 11:36 Order name: Magnesium; Complete Time: 13:07/18 11:36 Order name: NT PRO-BNP; Complete Time: 13:07/18 11:36 Order name: PT-INR; Complete Time: 13:07/18 11:36 Order name: Ptt, Activated; Complete Time: :07/18 11:36 Order name: Troponin (emerg Dept Use Only); Complete Time: 13:07/18 11:36 Order name: XRAY CXR (1 view); Complete Time: 13:07/18 11:36 Order name: CT Head Brain wo Cont; Complete Time: 15:07/18 11:43 Order name: COVID-19; Complete Time: 14:30 07/18 11:43 Order name: Flu; Complete Time: 15:07/18 12:35 Order name: CT Chest For PE Angio; Complete Time: 15:07/18 11:36 Order name: EKG; Complete Time: 11:37 07/18 11:36 Order name: Cardiac monitoring; Complete Time: :07/18 11:36 Order name: EKG - Nurse/Tech; Complete Time: 11:58 07/18 11:36 Order name: IV Saline Lock; Complete Time: 11:07/18 11:36 Order name: Labs collected and sent; Complete Time: :07/18 11:36 Order name: O2 Per Protocol; Complete Time: :07/18 11:36 Order name: O2 Sat Monitoring; Complete Time: 11:58 Administered Medications: 11:49 Drug: AtroVENT Aerosol 0.5 mg Route: Inhalation; hb 11:49 Drug: SOLU-Medrol 125 mg Route: IVP; Site: right antecubital; hb 13:37 Follow up: Response: No adverse reaction em 11:49 Drug: Albuterol 2.5 mg Route: Inhalation; hb 11:49 Drug: NS 0.9% 500 ml Route: IV; Rate: 1 bolus; Site: right antecubital; hb 13:37 Follow up: IV Status: Completed infusion; IV Intake: 500ml em 11:49 Drug: Reglan 10 mg Route: IVP; Site: right antecubital; hb 13:38 Follow up: Response: No adverse reaction; Marked relief of symptoms em 11:49 Drug: TORadol 30 mg Route: IVP; Site: right antecubital; hb 13:37 Follow up: Response: No adverse reaction; Marked relief of symptoms; Pain is decreased em 11:55 Drug: Albuterol 2.5 mg Route: Inhalation; hb 12:38 Drug: AZITHromycin 500 mg Route: IVPB; Infused Over: 1 hrs; Site: right antecubital; em 19:30 Follow up: Response: No adverse reaction; IV Status: Completed infusion ea 13:36 Drug: Magnesium Sulfate 1 grams Route: IVPB; Infused Over: 1 hrs; Site: right em antecubital; 14:53 Follow up: Response: No adverse reaction; IV Status: Completed infusion; IV Intake: em 100ml 14:44 Drug: Zofran (Ondansetron) 4 mg Route: IVP; Site: right antecubital; em 15:44 Follow up: Response: No adverse reaction em 14:46 Drug: morphine 4 mg Route: IVP; Site: right antecubital; em 15:44 Follow up: Response: No adverse reaction; Marked relief of symptoms; Pain is decreased em 14:53 Drug: Potassium Chloride 20 mEq Route: IV; Rate: calculated rate; Site: right em antecubital; 19:29 Follow up: Response: No adverse reaction; IV Status: Completed infusion ea 15:17 Not Given (Physician Discretion): Lovenox 80 mg Sub-Q once ss 15:19 Not Given (Physician Discretion): Lovenox 80 mg Sub-Q once ss 15:26 Drug: Lovenox 1 mg/kg Route: Sub-Q; Site: left lower abdomen; em 15:44 Follow up: Response: No adverse reaction em Disposition: 07/18/20 15:07 Hospitalization ordered by Mohan Wilson for Inpatient Admission. Preliminary diagnosis are Non-ST elevation (NSTEMI) myocardial infarction, Chronic obstructive pulmonary disease with (acute) exacerbation, Hypokalemia, Headache. - Bed requested for Telemetry/MedSurg (Inpatient). - Status is Inpatient Admission. ea - Condition is Guarded. - Problem is new. - Symptoms are unchanged. Signatures: Dispatcher [employer] Sarah Tamayo RN RN dw Munoz, Edgar RN Isabel Reaves RN RN Margarita Darby RN RN Ashley Johnston RN RN ea Alzahri, Mohammad, MD MD ma2 Corrections: (The following items were deleted from the chart) 18:37 15:07 Hospitalization Ordered by Mohan Wilson MD for Inpatient Admission. Preliminary dw diagnosis is Non-ST elevation (NSTEMI) myocardial infarction; Chronic obstructive pulmonary disease with (acute) exacerbation; Hypokalemia; Headache. Bed requested for Telemetry/MedSurg (Inpatient). Status is Inpatient Admission. Condition is Guarded. Problem is new. Symptoms are unchanged. ma2 20:57 18:37 07/18/2020 15:07 Hospitalization Ordered by Mohan Wilson MD for Inpatient ea Admission. Preliminary diagnosis is Non-ST elevation (NSTEMI) myocardial infarction; Chronic obstructive pulmonary disease with (acute) exacerbation; Hypokalemia; Headache. Bed requested for Telemetry/MedSurg (Inpatient). Status is Inpatient Admission. Condition is Guarded. Problem is new. Symptoms are unchanged. dw
[2020-07-18] MEDS ORDERED: ENOXAPARIN 100 MG/ML SYR SQ ONE (15:33)
[2020-07-18] MEDS ORDERED: ACETAMINOPHEN 500 MG TAB PO PRN (20:26)
[2020-07-18] MEDS ORDERED: ONDANSETRON 4 MG/2 ML VIAL IV PRN (20:26)
[2020-07-18] MEDS ORDERED: CEFTRIAXONE 1 GM/NS 50 ML 1 GM/50 ML BAG IV SCH (21:00)
[2020-07-18 21:33] LABS: Troponin I 0.24 ng/mL (0.0-0.045)
[2020-07-18] MEDS ORDERED: POTASSIUM 25 MEQ EFFERV TAB PO ONE (21:44)
[2020-07-18 22:37] VITALS: BMI 37.3
[2020-07-18] MEDS: IPRATROPIUM BROM 0.5MG/2.5ML NEB SCH (22:40)
[2020-07-18] MEDS: ALBUTEROL 2.5 MG/3 ML NEB SOL NEB SCH (22:40)
[2020-07-18] MEDS: CEFTRIAXONE/SWI 1gm 1 GM/10 ML SYR IV SCH (22:40)
[2020-07-18] MEDS: NA CHLORIDE 0.9% 1,000 ML IV SCH (22:41)
[2020-07-18] MEDS: METHYLPREDNISOLONE 125 MG INJ IV SCH (23:33)
[2020-07-19] MEDS: METHYLPREDNISOLONE 125 MG INJ IV SCH ×2 (05:22→13:10)
[2020-07-19 05:32] LABS: Basophils % 0.4 % (0-1.3); Hematocrit 35.8 % (36.0-45.0); Lymphocytes % 6.4 % (15.3-44.8); MPV 8.9 fL (7.6-11.3); RBC Red Blood Cell Count 3.73 M/uL (3.86-4.86)
[2020-07-19 05:33] LABS: Absolute Lymphocytes (CBC) 0.4 K/uL (0.7-4.9)
[2020-07-19 05:53] LABS: Albumin 2.7 g/dL (3.4-5.0); Bilirubin Total 0.2 mg/dL (0.2-1.0); Phosphorus 2.8 mg/dL (2.5-4.9); Potassium 3.2 mmol/L (3.5-5.1); Protein, Total 6.9 g/dL (6.4-8.2)
[2020-07-19] MEDS: ALBUTEROL 2.5 MG/3 ML NEB SOL NEB SCH ×2 (06:40→13:10)
[2020-07-19] MEDS: IPRATROPIUM BROM 0.5MG/2.5ML NEB SCH ×2 (06:40→13:10)
[2020-07-19] MEDS ORDERED: POTASSIUM 25 MEQ EFFERV TAB PO ONE (07:00)
[2020-07-19] MEDS: KCL 20 MEQ/100 mL IVPB 20 MEQ/100 ML BAG IV SCH ×3 (07:00→09:17)
[2020-07-19 08:58] LABS: Platelet Estimate DECR; White Blood Cell Scan OK (OK)
[2020-07-19] MEDS ORDERED: ENOXAPARIN 30 MG/0.3 ML SQ SCH (09:00)
[2020-07-19] MEDS ORDERED: AZITHROMYCIN IV 250 MG in NA CHLORIDE 0.9% 250 ML IVPB SCH (09:00)
[2020-07-19 09:01] LABS: Blood Morphology Comment NOT SEEN (NOT SEEN); Platelets, Giant PRESENT
[2020-07-19] MEDS: CEFTRIAXONE/SWI 1gm 1 GM/10 ML SYR IV SCH (09:18)
[2020-07-19] MEDS: NA CHLORIDE 0.9% 1,000 ML IV SCH (10:53)
[2020-07-19] MEDS ORDERED: HYDROCODONE/APAP 10/325 TAB PO PRN (11:28)
[2020-07-19] MEDS ORDERED: DIAZEPAM 5 MG TABLET PO PRN (11:28)
[2020-07-19] MEDS ORDERED: ALBUTEROL INHALER 60 PUFF/8 GM IH SCH (11:30)
[2020-07-19] MEDS ORDERED: FAMOTIDINE 20 MG TAB PO SCH (12:00)
[2020-07-19] MEDS ORDERED: FUROSEMIDE 40 MG TABLET PO SCH (12:00)
[2020-07-19] MEDS ORDERED: VALACYCLOVIR 500 MG TAB PO SCH (12:00)
[2020-07-19] MEDS ORDERED: METOLAZONE 5 MG TABLET PO SCH (12:00)
[2020-07-19 12:03] LABS: Urine Appearance CLEAR; Urine Bilirubin NEGATIVE (NEG); Urine Blood NEGATIVE (NEG); Urine Color YELLOW; Urine Glucose NEGATIVE (NEG); Urine Protein TRACE (NEG); Urine Specific Gravity 1.015 (1.005-1.030); Urine Urobilinogen 0.2 mg/dL (0.2-1.0)
[2020-07-19 12:04] LABS: Urine Microscopic Reflex ORDER UMIC
[2020-07-19 12:15] LABS: Urine Bacteria NONE SEEN /HPF (<20); Urine Culture Reflex Order REFLEXED; Urine RBC NONE SEEN /HPF (NONE SEEN)
[2020-07-19 12:16] LABS: Urine Yeast PRESENT (NONE SEEN)
[2020-07-19 12:39] VITALS: BP 101/52; TEMP 97.6
[2020-07-19 13:46] VITALS: O2SAT 93
[2020-07-19] MEDS ORDERED: GABAPENTIN 300 MG CAP PO SCH (14:00)
[2020-07-19] MEDS ORDERED: POTASSIUM CL SA 10 MEQ TAB PO SCH (14:00)
--- NOTE | 2020-07-19 14:21 | P.HP ---
Certification for Inpatient Patient admitted to: Observation With expected LOS: <2 Midnights Patient will require the following post-hospital care: None Practitioner: I am a practitioner with admitting privileges, knowledge of patient current condition, hospital course, and medical plan of care. Services: Services provided to patient in accordance with Admission requirements found in Title 42 Section 412.3 of the Code of Federal Regulations Patient History Date of Service: 07/18/20 Reason for admission: Shortness of breath History of Present Illness: Patient is a 69-year-old female who came to the hospital with shortness of breath. Patient's history of COPD. Patient follows with Pulmonary in the [place] area. Patient also follows with Cardiology, Dr. Etienne. Patient states she has COPD exacerbations quite a bit. She came into the hospital for further evaluation. In the emergency room, patient was started on nebs steroids, and antibiotics. She was also given diuresing. She was brought into the hospital for further evaluation. Allergies aspirin Allergy (Verified 09/16/15 18:00) Nausea/Vomiting codeine Allergy (Verified 09/16/15 18:00) Nausea/Vomiting vinegar Allergy (Uncoded 04/03/16 19:10) Unknown Home Medications: ARIPiprazole [Abilify] 5 mg PO BEDTIME 07/18/20 Albuterol Inhaler [Ventolin Inhaler*] 2 puff IH PRN 07/18/20 Aspirin [Aspirin EC 81 MG] 81 mg PO BID 07/18/20 Budesonide/Formoterol Fumarate [Symbicort 80-4.5 Mcg Inhaler] 1 puff IH DAILY 07/18/20 Butorphanol Tartrate 1 spray MARIA T Q6H PRN 07/18/20 Carvedilol [Coreg] 12.5 mg PO BID 07/18/20 Diazepam [Valium] 10 mg PO DAILYPRN PRN 07/18/20 Duloxetine HCl 60 mg PO DAILY 07/18/20 Famotidine [Pepcid*] 20 mg PO BID 07/18/20 Furosemide [Lasix*] 40 mg PO DAILY 07/18/20 Gabapentin 600 mg PO TID 07/18/20 Guaifenesin 400 mg PO BEDTIME 07/18/20 Hydrocodone Bit/Acetaminophen [Hydrocodon-Acetaminophn 10-325] 1 tab PO QIDP PRN 09/11/20 Iron 65 mg PO DAILY 07/18/20 Leflunomide 20 mg PO DAILY 07/18/20 Levalbuterol Tartrate [Xopenex Hfa] 2 puff IH Q4H 07/18/20 Melatonin 10 mg PO BEDTIME 07/18/20 Omeprazole [Prilosec] 40 mg PO DAILY 07/18/20 Potassium Chloride 20 meq PO TID 07/18/20 Remicade 1 IV SEECOM 07/18/20 Topiramate [Topamax] 200 mg PO BID 07/18/20 Valacyclovir [Valtrex*] 500 mg PO DAILY 07/18/20 Zolpidem Tartrate [Ambien*] 10 mg PO BEDTIME 07/18/20 metOLazone [Metolazone] 5 mg PO DAILY 07/18/20 predniSONE [Prednisone*] 20 mg PO BID #20 tab 07/19/20 - Past Medical/Surgical History Has patient received pneumonia vaccine in the past: Yes Diabetic: No -: HTN -: COPD -: shingles -: rheumatoid arthritis -: Adrenal Gland disease -: GERD -: hysterectomy -: Bilateral tubal ligation -: Cholecystectomy - Family History Father Medical History: Heart disease, Other (see notes) Notes: alcohol abuse; psoriasis; Mother Medical History: Heart disease, Cancer - Social History Smoking Status: Current every day smoker Alcohol use: No CD- Drugs: No Caffeine use: No Place of Residence: Home Review of Systems 10-point ROS is otherwise unremarkable Physical Examination - Vital Signs Temperature: 97.6 F Blood Pressure: 101/52 Pulse: 75 Respirations: 19 Pulse Ox (%): 96 - Physical Exam General: Alert, In no apparent distress, Oriented x3 HEENT: Atraumatic, PERRLA, Mucous membr. moist/pink, EOMI, Sclerae nonicteric Neck: Supple, 2+ carotid pulse no bruit, No LAD, Without JVD or thyroid abnormality Respiratory: Diminished, Expiratory wheezes Cardiovascular: Regular rate/rhythm, Normal S1 S2, No murmurs Gastrointestinal: Normal bowel sounds, Soft and benign, Non-distended, No tenderness Musculoskeletal: No clubbing, No swelling, No tenderness Integumentary: No rashes Neurological: Normal gait, Normal speech, Normal strength at 5/5 x4 extr, Normal tone, Sensation intact, Cranial nerves 3-12 intact, Normal affect Lymphatics: No axilla or inguinal lymphadenopathy - Studies Microbiology Data (last 24 hrs): 07/18/20 12:30 Nasopharnyx Influenza Type A Antigen Screen - Final 07/18/20 12:30 Nasopharnyx Influenza Type B Antigen Screen - Final 07/18/20 12:30 Nasopharnyx Coronavirus COVID-19 PCR - Final Assessment & Plan - Problems (Diagnosis) (1) Non-STEMI (non-ST elevated myocardial infarction) Current Visit: Yes Status: Acute (2) Acute exacerbation of chronic obstructive pulmonary disease Current Visit: Yes Status: Acute (3) Acute kidney injury Current Visit: Yes Status: Acute (4) Dyspnea Onset Date: 09/17/15 Current Visit: No Status: Acute (5) Hypoxia Onset Date: 09/17/15 Current Visit: No Status: Acute (6) Hypokalemia Current Visit: Yes Status: Acute - Plan Plan: 1. Continue with albuterol and Atrovent nebs 2. Continue with IV steroids 3. Outpatient Pulmonary follow-up 4. Pulmonary follow-up if symptoms do not improve 5. Room air O2 sats 6. Repeat chest x-ray in the morning 7. Diurese as needed 8. GI and DVT prophylaxis Discharge Plan: Home Plan to discharge in: 24 Hours - Advance Directives Does patient have a Living Will: Yes Does patient have a Durable POA for Healthcare: Yes - Code Status/Comfort Care Code Status Assessed: Yes Code Status: Full Code Critical Care: No Time Spent Managing PTS Care (In Minutes): 45
--- NOTE | 2020-07-19 14:27 | P.DS ---
Discharge Date: 07/19/20 Disposition: ROUTINE DISCHARGE Discharge Condition: GOOD Reason for Admission: Shortness of breath Consultations: Cardiology - Problems (1) Non-STEMI (non-ST elevated myocardial infarction) Current Visit: Yes Status: Acute (2) Acute exacerbation of chronic obstructive pulmonary disease Current Visit: Yes Status: Acute (3) Acute kidney injury Current Visit: Yes Status: Acute (4) Dyspnea Onset Date: 09/17/15 Current Visit: No Status: Acute (5) Hypoxia Onset Date: 09/17/15 Current Visit: No Status: Acute (6) Hypokalemia Current Visit: Yes Status: Acute Brief History of Present Illness: Patient is a 69-year-old female who came to the hospital with shortness of breath. Patient's history of COPD. Patient follows with Pulmonary in the [place] area. Patient also follows with Cardiology, Dr. Etienne. Patient states she has COPD exacerbations quite a bit. She came into the hospital for further evaluation. In the emergency room, patient was started on nebs steroids, and antibiotics. She was also given diuresing. She was brought into the hospital for further evaluation. Hospital Course: Patient was treated with steroids, antibiotics, and diuretics. Patient was also given nebulizer therapy. Patient states today she is doing much better. She says the steroids have helped her quite a bit. 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 She is a smoker and she will be counseled regarding some tobacco cessation. At this time, patient is stable for discharge with outpatient follow-up. Vital Signs/Physical Exam: Temp Pulse Resp BP Pulse Ox 97.6 F 75 19 101/52 L 96 07/19/20 14:23 07/19/20 14:23 07/19/20 14:23 07/19/20 14:23 07/19/20 14:23 General: Alert, In no apparent distress, Oriented x3 Laboratory Data at Discharge: WBC 6.7 K/uL (4.3-10.9) D 07/19/20 04:51 Hgb 12.2 g/dL (12.0-15.0) 07/19/20 04:51 Hct 35.8 % (36.0-45.0) L 07/19/20 04:51 Plt Count 137 K/uL (152-406) L 07/19/20 04:51 PT 12.5 SECONDS (9.5-12.5) 07/18/20 11:55 INR 1.06 07/18/20 11:55 APTT 30.7 SECONDS (24.3-36.9) 07/18/20 11:55 Sodium 136 mmol/L (136-145) 07/19/20 04:51 Potassium 3.2 mmol/L (3.5-5.1) L 07/19/20 04:51 BUN 34 mg/dL (7-18) H 07/19/20 04:51 Creatinine 1.32 mg/dL (0.55-1.3) H 07/19/20 04:51 Glucose 126 mg/dL (74-106) H 07/19/20 04:51 Phosphorus 2.8 mg/dL (2.5-4.9) 07/19/20 04:51 Magnesium 3.0 mg/dL (1.8-2.4) H D 07/19/20 04:51 Total Bilirubin 0.2 mg/dL (0.2-1.0) 07/19/20 04:51 AST 17 U/L (15-37) 07/19/20 04:51 ALT 16 U/L (12-78) 07/19/20 04:51 Alkaline Phosphatase 84 U/L (45-117) 07/19/20 04:51 Troponin I 0.24 ng/mL (0.0-0.045) H 07/18/20 20:54 Lipase 29 U/L (73-393) L 07/18/20 11:55 Home Medications: ARIPiprazole [Abilify] 5 mg PO BEDTIME 07/18/20 Albuterol Inhaler [Ventolin Inhaler*] 2 puff IH PRN 07/18/20 Aspirin [Aspirin EC 81 MG] 81 mg PO BID 07/18/20 Budesonide/Formoterol Fumarate [Symbicort 80-4.5 Mcg Inhaler] 1 puff IH DAILY 07/18/20 Butorphanol Tartrate 1 spray MARIA T Q6H PRN 07/18/20 Carvedilol [Coreg] 12.5 mg PO BID 07/18/20 Diazepam [Valium] 10 mg PO DAILYPRN PRN 07/18/20 Duloxetine HCl 60 mg PO DAILY 07/18/20 Famotidine [Pepcid*] 20 mg PO BID 07/18/20 Furosemide [Lasix*] 40 mg PO DAILY 07/18/20 Gabapentin 600 mg PO TID 07/18/20 Guaifenesin 400 mg PO BEDTIME 07/18/20 Hydrocodone Bit/Acetaminophen [Hydrocodon-Acetaminophn 10325] 1 tab PO QIDP PRN 07/18/20 Iron 65 mg PO DAILY 07/18/20 Leflunomide 20 mg PO DAILY 07/18/20 Levalbuterol Tartrate [Xopenex Hfa] 2 puff IH Q4H 07/18/20 Melatonin 10 mg PO BEDTIME 07/18/20 Omeprazole [Prilosec] 40 mg PO DAILY 07/18/20 Potassium Chloride 20 meq PO TID 07/18/20 Remicade 1 IV SEECOM 07/18/20 Topiramate [Topamax] 200 mg PO BID 07/18/20 Valacyclovir [Valtrex*] 500 mg PO DAILY 07/18/20 Zolpidem Tartrate [Ambien*] 10 mg PO BEDTIME 07/18/20 metOLazone [Metolazone] 5 mg PO DAILY 07/18/20 predniSONE [Prednisone*] 20 mg PO BID #20 tab 07/19/20 New Medications: predniSONE [Prednisone*] 20 mg PO BID #20 tab Patient Discharge Instructions: -OK TO DC IV AND DC HOME. -FOLLOW-UP WITH PRIMARY CARE PROVIDER IN 1-2 WEEKS-PLEASE DISCUSS WITH PCP REGARDING DUPLICATE MEDICATIONS IN THE SAME CLASS. -FOLLOW-UP WITH PULMONARY AND CARDIOLOGY IN 1-2 WEEKS. RETURN TO THE ER IF symptoms worsen. -CALL or TEXT DR. CROCKER AT [phone] IF ANY QUESTIONS REGARDING HOSPITAL STAY. -PLEASE CALL THE FLOOR A T [phone] IF ANY MEDICATION OR NURSING QUESTIONS. Diet: AHA Activity: Fall precautions Time spent managing pt's care (in minutes): 30
[2020-07-19] MEDS ORDERED: TOPIRAMATE 100 MG TAB PO SCH (21:00)
[2020-07-19] MEDS ORDERED: carvediloL 12.5 MG TAB PO SCH (21:00)
[2020-07-19] MEDS ORDERED: ASPIRIN EC 81 MG TAB PO SCH (21:00)
[2020-07-19] MEDS ORDERED: ARIPiprazole 5 MG TAB PO SCH (21:00)
[2020-07-19] MEDS ORDERED: ZOLPIDEM TARTRATE 10 MG TABLET PO SCH (21:00)
[2020-07-20] MEDS ORDERED: DULOXETINE 30 MG CAP PO SCH (09:00)
[2020-07-20] MEDS ORDERED: DULERA 100/5 (MOMETASONE/FORMOTEROL) INHALER IH SCH (09:00)
[2020-07-20] MEDS ORDERED: HOME MED 1 EA UNK (Leflunomide [Leflunomide] 20 MG) PO SCH (09:00)
[2020-07-20] MEDS ORDERED: PANTOPRAZOLE 40MG TABLET PO SCH (09:00)
--- NOTE | 2020-07-20 09:48 | EKG ---
Test Date: 2020-07-18 Test Time: 11:58:10 Automotive Service Consultant: BENNIE MEASUREMENT RESULTS: Intervals: Rate: 74 UT: 144 QRSD: 126 QT: 380 QTc: 421 Dixon: P: 31 UT: 144 QRS: -32 T: -23 INTERPRETIVE STATEMENTS: Sinus rhythm with premature atrial complexes Left axis deviation Right bundle branch block T wave abnormality, consider inferior ischemia Abnormal ECG Compared to ECG 09/17/2015 10:32:51 Atrial premature complex(es) now present Left-axis deviation now present T-wave abnormality now present Possible ischemia now present Electronically Signed On 07-20-20 09:44:48 CDT by Elijah Bravo
--- NOTE | 2020-07-23 01:16 | CON ---
Date of Consultation: 07/18/2020 Reason For Consultation: Elevated troponin. History Of Present Illness: Ms. Perrin is a 69-year-old woman, who has a history of COPD, migraine he adaches, cluster headaches and rheumatoid arthritis, who came in with COPD exacerbation, hypoxia, neo vated troponin. Her main complaint was shortness of breath and weakness. I was consulted because of elevated troponin. Ms. Perrin has seen Dr. Etienne in the past. She denied any chest pain. She den ied any PND, orthopnea, pedal edema, palpitation, or syncope. She was found to have a pCO2 of 55, cr eatinine was 2.08. She had an elevated D-dimer with a negative CT angiogram. She had a negative CT of her head. Chest x-ray showed questionable pulmonary edema. She was hypokalemic with a potassium of 2.8 and troponin of 0.36. Her BNP was 9383. She denied any fever, chills, or cough. Past Medical History: As stated above. Also include history of gastroesophageal reflux disease, hyp ertension, and neuropathy. Allergies: SHE IS ALLERGIC TO ASPIRIN, CODEINE, AND VINEGAR. Review of Systems: Negative. Social History: Negative. Family History: Negative. Medications: At home include prednisone, Prilosec, Ambien, Lasix, Topamax, Neurontin, Coreg, and met olazone. Physical Examination: Vital Signs: Stable. She was in sinus rhythm. She was feeling much better and had no complaint. S he was afebrile. HEENT: Negative. Neck: Supple without any bruit, lymphadenopathy, JVD, or thyromegaly. Chest: Some expiratory wheezing. No rales. Cardiac: Regular rhythm and rate without any murmurs, gallops, or rubs. Abdomen: Obese, but benign. Extremities: Trace edema. Neurologic: She was nonfocal. Skin: Dry and intact. Diagnostic Data: As stated earlier. Impression And Plan: 1.Chronic obstructive pulmonary disease exacerbation with hypoxia causing elevated troponin. This i s not an acute coronary syndrome. Ms. Perrin has seen Dr. Etienne and has had a negative cardiac work up in the past. 2.Renal insufficiency, which certainly could contribute to the elevated troponin. With that and her hypokalemia, I think her metolazone needs to be discontinued. She needs to have potassium supplemen tation. 3.Elevated D-dimer with negative CT angiogram. This is secondary to hypoxia as well. Her elevated BNP is secondary to hypoxia as well. 4.Her other problems include migraine headache, cluster headaches, rheumatoid arthritis, hypertensio n, and gastroesophageal reflux disease, all of those are stable. Ms. Perrin is feeling well. She has no symptoms today. I will certainly be comfortable with her salud g home with her home medication except for the metolazone. If she needs to take Lasix, she should be on some potassium supplementation at home. I would continue her antibiotics, inhalers, and Lovenox for now, and I am comfortable with her going home. She is certainly welcome to see me or go back and see Dr. Etienne in the near future. PAT/YESI Voice ID: [id number] Report ID: [id number]
== END 2020-07-19 15:49 | disposition home or self-care (01) ==
LOC: ER 11:25 → ERHOLD 18:20 → INTOOBSV 18:20 → 2ND 20:43
PROVIDERS: ADMIT Hospitalist; ATTEND Hospitalist
DX: I21.4 Non-ST elevation (NSTEMI) myocardial infarction (principal); J44.1 Chronic obstructive pulmonary disease with (acute) exacerbation; N17.9 Acute kidney failure, unspecified; R09.02 Hypoxemia; E87.6 Hypokalemia; I10 Essential (primary) hypertension; R51 Headache; M06.9 Rheumatoid arthritis, unspecified; K21.9 Gastro-esophageal reflux disease without esophagitis; B02.9 Zoster without complications; E27.9 Disorder of adrenal gland, unspecified; R06.00 Dyspnea, unspecified; F17.210 Nicotine dependence, cigarettes, uncomplicated; Z71.6 Tobacco abuse counseling; Z20.828 Contact with and (suspected) exposure to other viral communicable diseases; Z88.6 Allergy status to analgesic agent; Z91.09 Other allergy status, other than to drugs and biological substances; Z90.49 Acquired absence of other specified parts of digestive tract; Z90.710 Acquired absence of both cervix and uterus; Z82.49 Family history of ischemic heart disease and other diseases of the circulatory system
CPT/HCPCS: 96365; 96367; 96361; 93005; 87040 ×2; 87088; 85025 ×2; 87086; 80048 ×2; 36415; 83735 ×2; 82550; 84100; 85610; 85379; 80076; 85730; 84484 ×2; 82553; 83690; 80053; 83880; 87804 ×2; 70450; 71275; 71045; 94640; 82805; 96375; 96372; 99285; 96366; U0002; Q9967; J2765; J0456 ×2; J3480 ×2; J1650 ×2; J3475; J0696 ×2; J7050 ×2; J7030 ×3; J2930 ×4; J2405; G0378 ×3; 81003; 81015

== ENCOUNTER 2021-07-10 09:20 | Inpatient (IN) | payer OTHER ==
--- OUTSIDE RECORDS SUMMARY | 2021-07-10 09:23 | XMS REPORT | Clinical Summary ---
:1950 Author Organization [facility] Address [address] [place] [address] Care Team Providers Name Role Phone Zehra Hu MD Primary Care Provider Scott Shaikh MD Unavailable Scott Shaikh MD Unavailable Allergies Active Allergy Reactions Severity Noted Date Comments Aspirin Nausea And Vomiting 03/29/2016 Codeine Nausea And Vomiting 03/30/2016 Methotrexate Analogues Other (See Comments) High 12/14/2018 Skin peeling, mouth sores, stomach ulcers Other - Food Rash Low 03/30/2016 VINEGAR Medications Medication Sig Dispensed Refills Start Date End Date Status predniSONE Take 20 mg by 0 Activ e (DELTASONE) 5 mg mouth as needed. tablet FOR RHEUMATOID ARTHRITIS FLARE UP carvedilol (COREG) 12.5 mg twice 0 Active 12.5 mg tablet daily. furosemide (LASIX) Take 40 mg by 0 Active 40 mg tablet mouth daily. aspirin 81 mg EC Take 81 mg by 0 Active tablet mouth twice daily. butorphanol Inhale 1 spray 0 Act valerie (STADOL) 10 mg/mL into each nostril nasal spray every 4 (four) hours as needed for moderate pain. HYDROcodone-acetami Take 1 tablet by 0 Active nophen (NORCO) 10 mouth 2 (two) mg-325 mg per times a day as tablet needed. albuterol (VENTOLIN Inhale 1 puff by 0 Active HFA) 90 mcg/puff mouth as needed. inhaler budesonide-formoter Inhale by mouth 0 Active ol (SYMBICORT) twice daily. 80-4.5 mcg/actuation inhaler topiramate Take 400 mg by 0 Acti ve (TOPAMAX) 200 mg mouth twice tablet daily. leflunomide (ARAVA) Take 20 mg by 0 Active 20 mg tablet mouth daily. diazePAM (VALIUM) Take 10 mg by 0 Active 10 mg tablet mouth as needed. omeprazole Take 40 mg by 0 Activ e (PriLOSEC) 40 MG mouth at bedtime. capsule melatonin 10 mg Take 10 mg by 0 Active tablet mouth at bedtime. valACYclovir Take 500 mg by 0 Ac tive (VALTREX) 500 mg mouth daily. tablet gabapentin Take 300 mg by 0 Acti ve (NEURONTIN) 300 mg mouth 3 (three) capsule times a day. etanercept (ENBREL) Inject 50 mg 0 Active 50 mg/mL (0.98 mL) under the skin injection once a week. famotidine (PEPCID) Take 10 mg by 0 Active 10 mg tablet mouth twice daily. folic acid Take 1 mg by 0 Active (FOLVITE) 1 mg mouth twice tablet daily. metOLazone Take 5 mg by 0 Active (ZAROXOLYN) 5 mg mouth daily. tablet ARIPiprazole Take 5 mg by 0 Acti ve (ABILIFY) 5 mg mouth at bedtime. tablet zolpidem (AMBIEN) Take 10 mg by 0 Active 10 mg tablet mouth at bedtime. DULoxetine daily. 0 03/21/2020 Active (CYMBALTA) 60 mg capsule ferrous sulfate 325 Take by mouth 0 Active mg (65 mg elemental daily. iron per tablet) tablet INCRUSE ELLIPTA daily. 0 03/19/2020 Act valerie 62.5 mcg/actuation dsdv potassium chloride Take 20 mEq by 0 Active (K-DUR,KLOR-CON M) mouth 3 (three) 20 mEq tablet times a day. potassium chloride Take 2 tablets 180 tablet 3 01/17/202001/05 (KLOR-CON) 10 mEq (20 mEq) by mouth CR daily. tabletIndications: Bilateral mass of adrenal glands Additional Information Patient not taking. Reason: Other, Reported on 04/09/2020 Active Problems Problem Noted Date Chronic kidney disease 01/17/2020 Emphysema 01/17/2020 Sore throat 11/22/2018 Bilateral mass of adrenal glands 12/08/2017 Hypertension 12/08/2017 Moderate chronic obstructive pulmonary disease 016 Coronary artery disease due to lipid rich plaque 03/30 Adrenal mass 02/19/2016 Rheumatoid arthritis 10/15/2009 Overview: Overview: ICD-10 Encounters Date Type Specialty Care Team Description 01/26/2021 Orders Only Infectious Diseases Lacy Garcia, SARS -CoV-2 vaccination 07/10/2020 Orders Only Endocrine Surgery Bhavya Ty Bilate ral mass of PA adrenal glands (Primary Dx) after 07/10/2020 Surgical History Surgery Date Site/Laterality Comments HYSTERECTOMY 11/07/1980 - 11/06/1981 CHOLECYSTECTOMY Medical History Medical History Date Comments Chronic obstructive pulmonary disease Hypertension Herpes zoster Stress Migraine Migraine and clus ter headaches Gallstone Cancer Rheumatoid arthritis Congestive heart failure Family History Medical History Relation Name Comments Heart disease Brother Heart disease Father Hypertension Father Skin cancer Mother Hypertension Sister Relation Name Status Comments Brother Father Mother Sister Alive Social History Tobacco Use Types Packs/Day Years Used Date Current Every Day Smoker Cigarettes 1 Sta rted: 03/30/1960 Alcohol Use Standard Drinks/Week Comments No 0 (1 standard drink = 0.6 oz pure alcoho l) Sex Assigned at Date Recorded Female 07/10/2020 9:50 AM CDT Last Filed Vital Signs Not on file Plan of Treatment Health Maintenance Due Date Last Done Comments COVID-19 Vaccination (1) 1962 Results Not on fileafter 07/10/2020 Insurance Payer Benefit Plan Subscriber ID Effective Phone Address Typ e / Group Dates MEDICARE MEDICARE PART [id number] 2015-Pres [phone] [place], [place] Medicare A AND B ent [id number] AETNA SENIOR AETNA SENIOR [id number] 2015-Pres Medigap SUPPLEMENT SUPPLEMENT-SE ent [place] ONLY
--- OUTSIDE RECORDS SUMMARY | 2021-07-10 09:25 | XMS REPORT | Continuity of Care Document ---
:1950 Author Organization [facility] t Address [address] [place] [address] Care Team Providers Name Role Phone ALBERTO Primary Care Physician Unavailable SYSTEM, NOT IN Attending Clinician Unavailable BUBBA Attending Clinician Unavailable Margot LANDAVERDE Attending Clinician Unavailable Domi Keane MD Attending Clinician Jose MYLES Attending Clinician Rajat PARKER Attending Clinician Unavailable Petrona LOPEZ Attending Clinician Unavailable Karson MARIO Attending Clinician ALBERTO Attending Clinician Unavailable Payers Payer Name Policy Type Policy Number Effective Date Expiration Date S giancarlo MEDICARE PART A [id number] 2015 AND B 00:00:00 [employer] SENIOR [id number] 2015 SUPPLEMENT-SECOND 00:00:00 KAYLIN ONLY GENERIC [id number] Problems Condition Condition Condition Status Onset Resolution Last Treating Co mments Source Name Details Category Date Date Treatment Clinician Date Obesity Obesity Disease Active Methodi 12-11 00:00: Hospita 00 l Anxiety Anxiety Disease Active 2019-11 Methodi 11-11 00:00: Hospita 00 l 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 00:00: Hosp masha major major 00 l depressive depressive disorder disorder CKD CKD Disease Active 2019-11 Methodi (chronic (chronic 1-05 st kidney kidney 00:00: Hospita disease) disease) 00 l Chronic Chronic Disease Active kidney kidney 3-12 Anderso disease disease 00:00: n 00 Emphysema Emphysema Disease Active 3-12 Anderso 00:00: n 00 Sore Sore Disease Active throat throat 1-16 Anderso 00:00: n 00 Bilateral Bilateral Disease Active MD mass of mass of 12-08 Anderso adrenal adrenal 00:00: n glands glands 00 Hypertensi Hypertensi Disease Active M D on on 12-08 Anderso 00:00: n 00 Herpes Herpes Disease Active Methodi zoster zoster -18 st without without 00:00: Hospita complicati complicati 00 l on on Rheumatoid Rheumatoid Disease Active 2015-11 M ethodi arthritis arthritis 1-17 st involving involving 00:00: Hosp masha multiple multiple 00 l sites with sites with positive positive rheumatoid rheumatoid factor factor Elevated Elevated Disease Active 2015-11 Metho di fasting fasting 17 st glucose glucose 00:00: Hospita 00 l Symptomati Symptomati Disease Active C HI St [...] rich plaque plaque 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 Overview: ICD-10 History of History of Disease Active M ethodi shingles shingles st Hospita l Essential Essential Disease Active Met hodi hypertensi hypertensi st on on Hospita l Sleep Sleep Disease Active Methodi apnea apnea st Hospita l COPD COPD Disease Active Methodi (chronic (chronic st obstructiv obstructiv Ho spita e e l pulmonary pulmonary disease) disease) Allergies, Adverse Reactions, Alerts Allergy Allergy Status Severity Reaction(s) Onset Inactive Treating Comm ents Source Name Type Date Date Clinician Aspirin Propensi Active 2015-11 Only in Method i ty to 11-[address] adverse 00:00: doses Hospita reaction 00 l s to drug Codeine Propensi Active Nausea And 2015-11 Met hodi ty to Vomiting 11-23 st adverse 00:00: Hospita reaction 00 l s to drug Other Propensi Active Rash 2015-11 VINEGAR Methodi ty to 11-23 st adverse 00:00: Hospita reaction 00 l s Aspirin [facility]ensi [facility]: [facility] reaction 00 Center s Codeine Propensi Active [facility] - adverse 00:00: Medical reaction 00 Center s Family History Family Member Diagnosis Comments Start Date Stop Date Source Natural father Heart attack [facility] Natural father Heart disease [facility] Natural father Heart disease MD Augustine birch Natural father Hypertension Luis son Natural mother COPD [facility] Natural mother COPD [facility] Natural mother Skin cancer [place] Natural sister Alopecia [facility] Natural sister Bipolar disorder Meth [facility] Natural sister Hypertension Luis son Natural brother Heart disease And minerva Social History Social Habit Start Date Stop Date Quantity Comments Source History of tobacco Current smoker Me thodist use [facility] Tobacco use and 2021-05-19 2021-05-19 Never used Spirit[facility] exposure 00:00:00 00:00:00 Hospital Alcohol intake 2021-05-19 2021-05-19 Current drinker Metho dist 00:00:00 00:00:00 of alcohol Hospital (finding) Cigarettes smoked 2020-01-17 2020-01-17 MD Augustine birch current (pack per 00:00:00 00:00:00 day) - Reported Sex Ass[birth year] At [birth year] Spiritism 00:00:00 00:00:00 Hospital Smoking Status Start Date Stop Date Source Former smoker 2021-05-19 00:00:00 2021-05-19 00:00:00 [facility] Current every day smoker 2020-01-17 00:00:00 MD [place] Medications Ordered Filled Start Stop Current Ordering Indication Dosage Frequency Signature Comments Components Source Medication Medication Date Date Medication? Clinician (SIG) Name Name aravindACYclандрей Yes [id number] TAKE 1 Methodi r (VALTREX) [address] 500 MG 00:00: MOUTH Hospita tablet 00 DAILY FOR l 30 DAYS. leflunomide 2020- Yes [id number] TAKE 1 Methodi (ARAVA) 20 06-02 10- TABLET (20 st MG tablet 00:00: 04:59 MG TOTAL) Ho spita 00 :00 BY MOUTH l DAILY FOR 90 DAYS. valACYclovi 2020- No [id number] TAKE 1 Methodi r (VALTREX) 02-03- TABLET BY st 500 MG 00:00: 00:00 MOUTH Hospita tablet 00 :00 DAILY FOR l 30 DAYS. leflunomide 2020- No [id number] TAKE 1 Methodi (ARAVA) 20 12-08 TABLET (20 st MG tablet 00:00: 00:00 MG TOTAL) Ho spita 00 :00 BY MOUTH l DAILY FOR 90 DAYS. etanercept Yes Inject Metho di (ENBREL 1-[address] MINI SUBQ) 17:27: skin. Hospit a 49 l infliximab 2020- No 500mg Infuse 500 Methodi (REMICADE 1-13 01-[address] IV) 17:03: 00:00 venous Hospita 33 :00 catheter. l Every 8 weeks valACYclovi 2019-11- No [id number] TAKE 1 Methodi r (VALTREX) 2-09 03-[address] 500 MG 00:00: 00:00 MOUTH Hospita tablet 00 :00 DAILY FOR l 30 DAYS. predniSONE 2019-11- No Take 4 Meth luz maria (DELTASONE) 1-16 04-[address] 1 mg tablet 00:00: 00:00 the Hospi ta 00 :00 morning l diazePAM 2019-11 Yes Take by Method i (VALIUM) 10 0-[address] MG tablet 00:00: Hospita 00 l predniSONE 2019-11- No [id number] Take 3 Methodi (DELTASONE) 0-28 04-[address] 5 mg tablet 00:00: 00:00 day in the Hospita 00 :00 morning l omeprazole 2020-1 Yes 40mg QD Take 40 mg M ethodi (PriLOSEC) 0-[address] 40 MG 00:00: daily. Hospita capsule 00 l ARIPiprazol 2020-0 Yes 5mg QD Take 5 mg M ethodi e (ABILIFY) 9-[address] 5 MG tablet 00:00: nightly. Ho spita 00 l predniSONE 2020-0 2020- No [id number] Day 1- 2= Methodi (DELTASONE) 9-11 10-01 8 tabs, st 5 mg tablet 00:00: 04:59 3-4=7 Hosp masha 00 :00 tabs, l 5-6=6 tabs,7-8=5 tabs, 9-10=4 tabs,11-12 =3 tabs,13-14 =2 tabs,15-16 =1. Take all in the morning BABY 2020-0 Yes 81mg QD Take 81 mg Methodi ASPIRIN 9-[address] ORAL 15:07: daily. 2 Hospita 25 pills a l day budesonide- 2020-0 Yes Q.5D Inhale 2 Me thodi formoterol 9-10 (two) st (SYMBICORT) 15:07: times a Hos ilda 80-4.5 25 day as l mcg/actuati needed. on inhaler butorphanol 2020-0 Yes as needed. Methodi (STADOL) 10 9-10 st mg/mL nasal 15:07: Hospit a spray 25 l carvedilol 2020-0 Yes 12.5mg Q.5D Take 12.5 Methodi (COREG) 9-[address] 12.5 MG 15:07: mouth 2 Hospita tablet 25 (two) l times a day. furosemide 2020-0 Yes 40mg QD Take 40 mg M ethodi (LASIX) 40 9-[address] MG tablet 15:07: daily. Hospit a 25 l HYDROcodone 2020-0 Yes 1{tbl} Take 1 Me thodi -acetaminop 9-[address] hen (NORCO 15:07: mouth. Hospi ta 10-325) 25 l 10-325 mg per tablet metOLazone 2020-0 Yes 5mg QD Take 5 mg Me thodi (ZAROXOLYN) 9-[address] 5 MG tablet 15:07: daily. Hosp masha 25 l potassium 2020-0 Yes 20meq Take 20 Meth luz maria chloride 9-[address] (K-DUR) 20 15:07: mouth. Hospi ta MEQ CR 25 l tablet ferrous 2020-0 Yes Take by Methodi sulfate 325 9-[address] (65 FE) MG 15:07: Hospita tablet 25 l etanercept 2020-0 2020- No Inject Meth luz maria (ENBREL 9-10 09-[address] MINI) 50 14:37: 00:00 skin. Hospita mg/mL (1 18 :00 l mL) cartridge sertraline 2020-0 Yes 50mg QD Take 50 mg M ethodi (ZOLOFT) 50 8-[address] MG tablet 00:00: daily. Hospit a 00 l valACYclovi 2020-0 2020- No [id number] TAKE 1 Methodi r (VALTREX) 8-10 12-[address] 500 MG 00:00: 00:00 MOUTH Hospita tablet 00 :00 DAILY FOR l 30 DAYS. potassium 2020-0 Yes 20meq Take 20 MD chloride 6-03 mEq by Anderso (K-DUR,KLOR 16:21: mouth 3 n -CON M) 20 47 (three) mEq tablet times a day. melatonin 2020-0 Yes 10mg Take 10 mg [...] 2020-0 Yes Take by MD sulfate 325 6-03 mouth Anderso mg (65 mg 16:16: daily. n elemental 37 iron per tablet) tablet predniSONE 2020-0 Yes 20mg Take 20 mg [...] 1 MD -acetaminop 6-03 tablet by And erso hen (NORCO) 16:16: mouth 2 n 10 [...] MG 16:16: at n capsule 37 bedtime. DULoxetine 2020-0 Yes daily. MD (CYMBALTA) 5-15 Anderso 60 mg 00:00: n capsule 00 INCRUSE 2020-0 Yes daily. MD ELLIPTA 5-13 Anderso 62.5 00:00: n mcg/actuati 00 on dsdv umeclidiniu 2020-0 Yes daily. Meth luz maria m (Incruse 5-13 st Ellipta) 00:00: Hospita 62.5 00 l mcg/actuati on blister with device leflunomide 2019-0 2020- No [id number] TAKE 1 Methodi (ARAVA) 20 4-28 02-01 TABLET (20 st MG tablet 00:00: 00:00 MG TOTAL) Ho spita 00 :00 BY MOUTH l DAILY FOR 90 DAYS. gabapentin 2019-0 Yes TAKE 2 Metho di (NEURONTIN) 3-[address] 300 mg 00:00: BY MOUTH 3 Hospi ta capsule 00 TIMES A l DAY potassium 2019-2020- No Bilateral 20meq Take 2 MD chloride 3-12 03-13 mass of tablets Augustine rso (KLOR-CON) 00:00: 05:59 adrenal (20 mEq) n 10 mEq CR 00 :00 glands by mouth tablet daily. folic acid 2017-11 Yes [id number] Take 2 Methodi (FOLVITE) 1 2-[address] MG tablet 00:00: mouth Hospita 00 daily l XOPENEX HFA Yes USE 2 Metho di 45 8-13 (TWO) st mcg/actuati 00:00: PUFFS Hospi ta on inhaler 00 EVERY FOUR l HOURS, NEEDED DULoxetine Yes 60mg QD Take 60 mg M ethodi (CYMBALTA) 8-[address] 60 MG 00:00: daily. Hospita capsule 00 l topiramate Yes 100mg Q.5D Take 100 Me thodi (TOPAMAX) 7-[address] 100 MG 00:00: mouth 2 Hospita tablet 00 (two) l times a day. Take 2 tablets twice a day omeprazole 2020- No Method i (PriLOSEC) 5-18 09-10 st 40 MG 00:00: 00:00 Hospita capsule 00 :00 l zolpidem Yes [id number] QD nightly as Methodi (AMBIEN) 10 5-[address] mg tablet 00:00: Hospita 00 l furosemide Yes 40mg Q.5D Take [address] (LASIX) 40 9-27 by mouth 2 Angela es - MG tablet 16:06: (two) Medical 49 times Center daily. BABY Yes Take by [facility] ASPIRIN 9-27 mouth. [facility] - ORAL 16:06: Medical 49 Center carvedilol Yes 12.5mg Take 12.[address] (COREG) 9-27 mg by [facility] - 12.5 MG 16:06: mouth 2 Medical tablet 49 (two) Center times daily with breakfast and dinner. leflunomide Yes 10mg QD Take [address] (ARAVA) 10 9-27 by mouth [facility] - MG tablet 16:06: daily. Medica l 49 Center HYDROcodone Yes 1{tbl} Take [address] -acetaminop 9-27 tablet by Angela es - hen (NORCO 16:06: mouth Medica l 10-325) 49 every 6 Center 10-325 mg (six) per tablet hours as needed for Pain. butorphanol Yes None [facility] (STADOL) 10 9-27 Entered. Luke s - mg/mL nasal 16:06: Medica l spray 49 Center estrogens, Yes [address] conjugated, 9-27 DAILY. [facility] - (PREMARIN) 16:06: Medical 0.625 MG 49 Center tablet fLUoxetine Yes [address] (PROZAC) 20 9-27 EVERY [facility] - MG capsule 16:06: MORNING. Med ical 49 [place] budesonide- Yes Inhale by C [facility] formoterol 9-27 mouth via Luke s - (SYMBICORT) 16:06: inhaler as Medical 80-4.5 49 needed . [place] mcg/actuati on inhaler albuterol Yes 1{puff} Inhale [address] HFA 9-27 puff by [facility] - (VENTOLIN 16:06: mouth via Med ical HFA) 90 49 inhaler Center mcg/actuati every 6 on inhaler (six) hours as needed . acyclovir Yes 800mg Take [address] (ZOVIRAX) 9-27 mg by [facility] - 800 MG 16:06: mouth. Medical tablet 49 [place] levofloxaci Yes [facility] n 9-15 [facility] - (LEVAQUIN) 00:00: Medical 750 MG 00 [place] tablet SANTYL [address] unit/gram 8-09 [facility] - ointment 00:00: Medical 00 [place] predniSONE Yes [facility] (DELTASONE) 7-26 [facility] - 5 MG tablet 00:00: Medica l 00 [place] BUTRANS [address] mcg/hour 7-25 [facility] - PTWK 00:00: Medical 00 [place] topiramate Yes [facility] (TOPAMAX) 7-01 [facility] - 50 MG 00:00: Medical tablet 00 [place] gabapentin Yes 3{tbl} Take [address] (GRALISE) 4-12 tablets by Luke s - 600 mg Tb24 00:00: mouth. Medi pravin 00 [place] Immunizations Ordered Immunization Filled Immunization Date Status Commen ts Source Name Name PFIZER COVID-19 MRNA 2020-12-19 Completed Meth odist VACCINATION 00:00:00 [facility] PFIZER COVID-19 MRNA 2020-11-21 Completed Meth odist VACCINATION 00:00:00 Hospital Vital Signs Vital Name Observation Time Observation Value Comments Source Systolic blood 2021-02-18 16:28:00 98 mm[Hg] Method [facility] pressure Diastolic blood 2021-02-18 16:28:00 65 mm[Hg] [facility] pressure Heart rate 2021-02-18 16:28:00 91 /min [facility] Respiratory rate 2021-02-18 16:28:00 18 /min [facility] Body height 2021-02-18 16:28:00 160 cm [facility] Body weight 2021-02-18 16:28:00 100.699 kg [facility] BMI 2021-02-18 16:28:00 39.33 kg/m2 [facility] Oxygen saturation in 2021-02-18 16:28:00 93 /min [facility] Arterial blood by Pulse oximetry Body temperature 2020-07-17 14:53:00 36.39 Ariella [facility] Procedures Procedure Date / Time Performing Clinician Source Performed COVID-19 ANTI-SPIKE IGG 2021-02-18 17:15:00 [facility] ANTIBODY TITER C-REACTIVE PROTEIN 2021-02-18 17:15:00 [facility] SEDIMENTATION RATE 2021-02-18 17:15:00 [facility] URINALYSIS, AUTOMATED 2021-02-18 17:15:00 [facility] WITH MICROSCOPY COMPREHENSIVE METABOLIC 2021-02-18 17:15:00 [facility] PANEL HC COMPLETE BLD COUNT 2021-02-18 17:15:00 [facility] W/AUTO DIFF ESTIMATED GFR 2021-02-18 17:15:00 [facility] COMPREHENSIVE METABOLIC 2020-09-11 16:15:00 [facility] PANEL CBC WITH PLATELET AND 2020-09-11 16:15:00 [facility] DIFFERENTIAL C-REACTIVE PROTEIN 2020-09-11 16:15:00 [facility] SEDIMENTATION RATE 2020-09-11 16:15:00 [facility] URINALYSIS, AUTOMATED 2020-09-11 [facility]CROSCOPIC EXAMINATION 2020-09-11 16:15:00 Kevin Keane [facility] CBC WITH PLATELET AND 2020-07-17 05:00:00 Kevin Keane [facility] DIFFERENTIAL COMPREHENSIVE METABOLIC 2020-07-17 05:00:00 Kevin Keane [facility] PANEL SEDIMENTATION RATE 2020-07-17 05:00:00 Kevin Keane [facility] C-REACTIVE PROTEIN 2020-07-17 05:00:[facility] Planned Activity Planned Date Details Comments Source Future Scheduled 1962 COVID-19 Vaccination Orestes Test 00:00:00 (1) [code = COVID-19 Vaccination (1)] Future Scheduled 65+ PNEUMOCOCCAL [facility] Test VACCINE (1 of 4 - PCV13) [code = 65+ PNEUMOCOCCAL VACCINE (1 of 4 - PCV13)] Future Scheduled BREAST CANCER [facility] Test SCREENING [code = BREAST CANCER SCREENING] Future Scheduled COLONOSCOPY SCREENING [facility] Test [code = COLONOSCOPY SCREENING] Future Scheduled [facility]IN[facility] (#[facility] [code = SHINGLES VACCINES (#1)] Future Scheduled INFLUENZA VACCINE [facility] Test [code = INFLUENZA VACCINE] Encounters Start End Encounter Admission Attending Care Care Encounter Source Date/Time Date/Time Type Type Clinicians Facility Department ID 2020-07-09 Outpatient SYSTEM, [place] [id number] 17:00:04 PROVIDER [place] 2020-05-27 Outpatient SURIMA, [place] [id number] 11:57:19 KUNAL [place] o [place] 2020-05-26 Outpatient SYSTEM, [place] [id number] 14:41:46 PROVIDER [place] o [place] 2020-05-13 Outpatient FURROW, [place] [id number] 09:03:37 JP collazo 2021-06-01 2021-06-01 Refill Lakhwinder 1.2.840.1 [id number] [place] 00:00:00 00:00:00 Kevin Duron 30737.1.1 660 s t 3.430.2.7 Hospit a .3.559077 l .8 2021-05-19 2021-05-19 Telemedici Keane, 1.2.840.1 [id number] Methodi 10:46:28 10:48:28 ne Kevin Frost. 73367.1.1 227 s t 3.430.2.7 Hospit a .3.716763 l .8 2021-05-19 2021-05-19 Outpatient KEANE, [facility] [id number] [address] [place] 00:00:00 00:00:00 KEVIN [address] 2021-02-18 2021-03-10 Office Keane, 1.2.840.1 [id number] Methodi 10:57:47 09:23:45 Visit Kevin Frost. 68996.1.1 456 s t 3.430.2.7 Hospit a .3.371515 l .8 2021-02-18 2021-02-18 Lab Keane, 1.2.840.1 [id number] Methodi 12:03:45 12:08:45 Kevin Duron 42118.1.1 826 s t 3.430.2.7 Hospit a .3.142421 l .8 2021-02-18 2021-02-18 Outpatient KEANE, [facility] [id number] [place] 00:00:00 00:00:00 KEVIN [address] 2021-02-18 2021-02-18 Outpatient KEANE, [facility] [id number] 451 [place] 00:00:00 00:00:00 KEVIN [address] 2021-02-18 2021-02-18 Travel 1.2.840.1 1.2.975.072 [id number] Methodi 00:00:00 00:00:00 43823.1.1 350.1.13.43 936 3.430.2.7 0.2.7.3.698 Ho spita .3.905640 084.8 l .8 2021-02-03 2021-02-03 Refill Keane, 1.2.840.1 [id number] Methodi 00:00:00 00:00:00 Kevin Duron 43229.1.1 049 s t 3.430.2.7 Hospit a .3.623698 l .8 2020-12-19 2021-01-20 Clinical 1.2.840.1 [id number] Methodi 10:16:28 15:59:[address] 3.430.2.7 Hospit a .3.203547 l .8 2021-01-13 2021-01-13 Orders Rajat, 1.2.840.1 [id number] Methodi 00:00:00 00:00:00 [address] Sowmya [address]354.1.[address] 3.430.2.7 Hospit a .3.472031 l .8 2020-12-19 2020-12-19 Outpatient [facility] [id number] [address] [place] 00:00:00 00:00:[address] 2020-12-11 2020-12-11 Travel 1.2.840.1 1.2.633.687 [id number] Methodi 00:00:00 00:00:[address] 3.430.2.7 0.2.7.3.698 Ho spita .3.191808 084.8 l .8 2020-12-08 2020-12-08 Refill Lakhwinder, 1.2.840.1 [id number] Methodi 00:00:00 00:00:00 Kevin Frost. 43089.1.1 462 s t 3.430.2.7 Hospit a .3.200180 l .8 2020-11-21 2020-11-21 Clinical 1.2.840.1 [id number] Methodi 11:03:51 11:24:[address] 3.430.2.7 Hospit a .3.277850 l .8 2020-11-21 2020-11-21 Travel 1.2.840.1 1.2.204.826 [id number] [id number] Methodi 00:00:00 00:00:[address] 3.430.2.7 0.2.7.3.698 Ho spita .3.180220 084.8 l .8 2020-11-21 2020-11-21 Outpatient [facility] [id number] [place] 00:00:00 00:00:[address] 2020-11-19 2020-11-19 Office Keane, 1.2.840.1 [id number] Methodi 10:44:24 11:37:48 Visit Kevin Duron 06491.1.1 303 s t 3.430.2.7 Hospit a .3.204069 l .8 2020-11-19 2020-11-19 Travel 1.2.840.1 1.2.989.503 [id number] Methodi 00:00:00 00:00:[address] 3.430.2.7 0.2.7.3.698 Ho spita .3.573842 084.8 l .8 2020-11-19 2020-11-19 Outpatient LAKHWINDER, [facility] [id number] 9[address] [place] 00:00:00 00:00:00 KEVIN [address] 2020-10-15 2020-10-15 Refill Lakhwinder, 1.2.840.1 [id number] Methodi 00:00:00 00:00:00 Kevin Duron 48401.1.1 408 s t 3.430.2.7 Hospit a .3.789157 l .8 2020-09-22 2020-09-22 Orders Rajat, 1.2.840.1 [id number] Methodi 00:00:00 00:00:00 Only Sowmya 06185.1.[address] 3.430.2.7 Hospit a .3.467450 l .8 2020-09-11 2020-09-11 Office Lakhwinder, 1.2.840.1 [id number] Methodi 09:20:58 10:19:45 Visit Kevin Duron 78649.1.1 940 s t 3.430.2.7 Hospit a .3.884696 l .8 2020-09-11 2020-09-11 Outpatient KEANE, [facility] [id number] [place] 00:00:00 00:00:00 KEVIN [address] 2020-09-11 2020-09-11 Outpatient [facility] [id number] [place] 00:00:00 00:00:[address] 2020-09-11 2020-09-11 Outpatient KEANE, [facility] [id number] 797 [place] 00:00:00 00:00:00 KEVIN [address] 2020-09-11 2020-09-11 Travel 1.2.840.1 1.2.005.587 [id number] Methodi 00:00:00 00:00:[address] 3.430.2.7 0.2.7.3.698 Ho spita .3.028276 084.8 l .8 2020-09-09 2020-09-09 Orders Petrona, 1.2.840.1 [id number] Methodi 00:00:00 00:00:00 Only Tahiralo 16977.1.1 098 s t 3.430.2.7 Hospit a .3.700352 l .8 2020-09-03 2020-09-03 Telephone Rajat 1.2.840.1 [id number] Methodi 00:00:00 00:00:[address] 3.430.2.7 Hospit a .3.540606 l .8 2020-07-17 2020-07-22 Infusion 1.2.840.1 [id number] Methodi 09:51:06 12:18:[address] 3.430.2.7 Hospit a .3.225379 l .8 2020-07-17 2020-07-22 Office Lakhwinder, 1.2.840.1 [id number] Methodi 09:17:39 00:27:52 Visit Kevin Frost. 21455.1.1 866 s t 3.430.2.7 Hospit a .3.552708 l .8 2020-07-18 2020-07-18 Telephone Rajat, 1.2.840.1 [id number] Methodi 00:00:00 00:00:[address] 3.430.2.7 Hospit a .3.646664 l .8 2020-07-18 2020-07-18 Orders Rajat, 1.2.840.1 [id number] Methodi 00:00:00 00:00:00 Only Sowmya [address]1494.1.[address] 3.430.2.7 Hospit a .3.975784 l .8 2020-07-17 2020-07-17 Outpatient KEANE, [facility] [id number] [address] [place] 00:00:00 00:00:00 KEVIN [address] 2020-07-17 2020-07-17 Outpatient [facility] [id number] 348 [place] 00:00:00 00:00:[address] 2020-07-17 2020-07-17 Orders Keane, 1.2.840.1 [id number] Methodi 00:00:00 00:00:00 Only Kevin Frost. 75618.1.1 405 s t 3.430.2.7 Hospit a .3.202847 l .8 2020-07-17 2020-07-17 Travel 1.2.840.1 1.2.442.971 [id number] Methodi 00:00:00 00:00:[address] 3.430.2.7 0.2.7.3.698 Ho spita .3.596332 084.8 l .8 2020-07-08 2020-07-08 Outpatient EL ALBERTO, MDA MDA [id number] 00:00:00 00:00:00 YINKA collazo 2020-06-03 2020-06-03 Outpatient [facility] [id number] [address] [place] 00:00:00 00:00:[address] 2020-05-27 2020-05-27 Outpatient EL ALBERTO, MDA MDA [id number] 00:00:00 00:00:00 YINKA collazo 2020-05-20 2020-05-20 Outpatient EL ALBERTO, MDA MDA [id number] 00:00:00 00:00:00 YINKA collazo 2020-05-20 2020-05-20 Outpatient [facility] [id number] [place] 00:00:00 00:00:[address] 2020-04-23 2020-04-23 Outpatient KEANE, [facility] [id number] 209 [place] 00:00:00 00:00:00 KEVIN [address] 2020-04-23 2020-04-23 Outpatient KEANE, [facility] [id number] [place] 00:00:00 00:00:00 KEVIN [address] Results Test Description Test Time Test Comments Results Result Comments Source Urinalysis, automated with microscopy 2021-02-18 18:01:18 Test Item Value Reference Range Interpretation Comme nts Color, UA (test code = 5778-6) Straw Appearance, UA (test code = Clear 5767-9) Specific gravity, UA (test 1.001-1.035 code = 5811-5) pH, UA (test code = 5803-2) 5.0-8.5 Protein, UA (test code = Negative Negative 47727-4) Glucose, UA (test code = Negative Negative 87912-8) Ketones, UA (test code = Negative Negative 2514-8) Bilirubin, UA (test code = Negative Negative 5770-3) Blood, UA (test code = 5794-3) Negative Negative Nitrite, UA (test code = Negative Negative 5802-4) Urobilinogen, UA (test code = <2.0 <2.0 90769-8) Leukocyte esterase, UA (test Negative Negative code = 5799-2) Epithelial cells, UA (test <1 See_Comment [Automated message] The system code = 5787-7) which generat ed this result transmitted ref erence range: /HPF. The refer ence range was not used to int erpret this result as alexa l/abnormal. WBC, UA (test code = 5821-4) <1 See_Comment [Automated message] The system which generated this result transmitted ref erence range: 0 - 4 /HPF. The r eference range was not used to interpret this result as alexa l/abnormal. RBC, UA (test code = 56950-9) None seen See_Comment [Automated message] The system which generated this result transmitted ref erence range: 0 - 5 /HPF. The r eference range was not used to interpret this result as alexa l/abnormal. Bacteria, UA (test code = None seen None seen 87789-5) Hyaline casts, UA (test code = See_Comment [Automated message] The system 5796-8) which generated this result transmitted ref erence range: /LPF. The refer ence range was not used to int erpret this result as alexa l/abnormal. Yeast, UA (test code = None seen 38623-3) Yeast with pseudohyphae, UA None seen (test code = 43873-5) [facility] [id number] 19:09:00 Test Item Value Reference Range Interpretation Comments WBC, UA (test code = 0-5 See_Comment [Autom ated 5821-4) message] The system which generated this result transmitted reference range : 0 - 5 /hpf. The reference range was not used to interpret this result as normal/abnormal . RBC, UA (test code = 0-2 See_Comment [Autom ated 84192-7) message] The system which generated this result transmitted reference range : 0 - 2 /hpf. The reference range was not used to interpret this result as normal/abnormal . Epithelial cells (non 0-10 See_Comment [Auto mated renal) (test code = message] The 5787-7) system which generated this result transmitted reference range : 0 - 10 /hpf. Th e reference range was not used to interpret this result as normal/abnormal . Casts (test code = Present None seen /lpf A 45181-5) Cast type (test code Hyaline casts N/A = 31678-6) Mucus, UA (test code Present Not Estab. = 8247-9) Bacteria, UA (test Few None seen/Few code = 5769-5) KHURRAM (test code = KHURRAM) Performed at: [facility] [id number] Director: Ankur Wellington MD, Phone: [phone] Lab Interpretation Abnormal (test code = 94633-5) [facility]
[2021-07-10 09:52] LABS: Absolute Lymphocytes (CBC) 0.6 K/uL (0.7-4.9); Basophils % 0.4 % (0-1.3); Hematocrit 42.4 % (36.0-45.0); Lymphocytes % 11.8 % (15.3-44.8); MPV 8.9 fL (7.6-11.3); RBC Red Blood Cell Count 4.38 M/uL (3.86-4.86)
[2021-07-10 09:59] LABS: Protime INR 1.03
[2021-07-10] MEDS ORDERED: AZITHROMYCIN IV 500 MG in NA CHLORIDE 0.9% 250 ML IVPB ONE (10:00)
--- NOTE | 2021-07-10 10:05 | RAD REPORT ---
EXAM DESCRIPTION: RAD - Chest Single View - 07/10/2021 9:57 am CLINICAL HISTORY: CHEST PAIN Chest pain. COMPARISON: Chest Single View dated 07/18/2020; Chest Pa And Lat (2 Views) dated 09/19/2019; CHEST PA AND LAT 2 VIEW dated 01/19/2016; CHEST PA AND LAT 2 VIEW dated 11/21/2015 FINDINGS: Portable technique limits examination quality. Mild interstitial prominence is present bilaterally which probably indicates mild interstitial pulmon ravin edema or a viral infection. The heart is upper limit of normal in size. No displaced fractures.
[2021-07-10 10:10] LABS: ALT/SGPT 15 U/L (12-78); AST/SGOT 17 U/L (15-37); Albumin 3.3 g/dL (3.4-5.0); Alkaline Phosphatase 84 U/L (45-117); BUN Blood Urea Nitrogen 30 mg/dL (7-18); Bicarbonate 32 mmol/L (21-32); Bilirubin Direct 0.1 mg/dL (0-0.2); Bilirubin Total 0.3 mg/dL (0.2-1.0); Creatine Phosphokinase 56 U/L (26-192); Glucose Level 108 mg/dL (74-106); Lipase 85 U/L (73-393); Magnesium 2.3 mg/dL (1.8-2.4); NT PRO-BNP 453 pg/mL (<125); Protein, Total 7.1 g/dL (6.4-8.2); Sodium Level 138 mmol/L (136-145); Troponin (Emerg Dept Use Only) < 0.02 ng/mL (0.0-0.045)
[2021-07-10 10:11] LABS: CKMB Creatine Kinase MB < 1.0 ng/mL (1.0-3.6)
[2021-07-10 10:12] LABS: Potassium 2.7 mmol/L (3.5-5.1)
[2021-07-10] MEDS ORDERED: IPRATROPIUM BROM 0.5MG/2.5ML ONE (10:12)
[2021-07-10] MEDS ORDERED: LEVALBUTEROL 1.25 MG/3 ML NEB ONE (10:12)
[2021-07-10] MEDS ORDERED: FUROSEMIDE 40 MG/4 ML VIAL ONE (10:12)
[2021-07-10] MEDS ORDERED: CEFTRIAXONE/SWI 1gm 1 GM/10 ML SYR ONE (10:12)
--- NOTE | 2021-07-10 10:28 | RAD REPORT ---
EXAM DESCRIPTION: CT - Head Brain Wo Cont - 07/10/2021 10:17 am CLINICAL HISTORY: CONFUSED Headache, drowsiness COMPARISON: Head Brain Wo Cont dated 07/18/2020 TECHNIQUE: All CT scans are performed using dose optimization technique as appropriate and may inclu de automated exposure control or mA/KV adjustment according to patient size. FINDINGS: No intracranial hemorrhage, hydrocephalus or extra-axial fluid collection.No areas of brai n edema or evidence of midline shift. The paranasal sinuses and mastoids are clear. The calvarium is intact. IMPRESSION: No acute intracranial abnormality.
[2021-07-10 10:29] LABS: Blood Gas Oxyhemoglobin 90.8 % (94-97); Blood O2 Saturation 94.2 % (92-98.5)
--- NOTE | 2021-07-10 11:15 | ER ---
Nurse's Notes [facility] Name: Eugene Perrin Age: 70 yrs Sex: Female : 1950 Arrival Date: 07/10/2021 Time: :23 Bed 3 Private MD: Diagnosis: COPD/ Chronic obstructive pulmonary disease with acute lower respiratory infection;COPD/ Chronic obstructive pulmonary disease with (acute) exacerbation;Hypoxemia;Altered mental status, unspecified Presentation: 07/10 09:27 Chief complaint: EMS states: Daughter called 911 for AMS, on scene pt confused, SpO2 hb 80% on RA, improved to 95% on DuoNeb. Hx of COPD, not on home O2. Coronavirus screen: Client presents with at least one sign or symptom that may indicate coronavirus-19. Standard/surgical mask placed on the client. Provider contacted for isolation considerations. Ebola Screen: No symptoms or risks identified at this time. 09:27 Method Of Arrival: EMS: [facility] 09:27 Initial Sepsis Screen: Does the patient meet any 2 criteria? Yes Does the patient have hb a suspected source of infection? No. Patient's initial sepsis screen is negative. Risk Assessment: Do you want to hurt yourself or someone else? Patient reports no desire to harm self or others. 09:27 Acuity: WOO 2 hb 09:27 Onset of symptoms was July 10, 2021. Triage Assessment: 09:28 General: Appears distressed, Behavior is cooperative, anxious. Pain: Pain currently is hb 7 out of 10 on a pain scale. EENT: No signs and/or symptoms were reported regarding the EENT system. Neuro: Level of Consciousness is awake, alert, obeys commands, confused, Oriented to person. Cardiovascular: Patient's skin is warm and dry. Respiratory: Reports shortness of breath at rest Respiratory effort is labored, Respiratory pattern is tachypnea. GI: No signs and/or symptoms were reported involving the gastrointestinal system. : No signs and/or symptoms were reported regarding the genitourinary system. Derm: Skin is pink, warm \T\ dry. Musculoskeletal: No signs and/or symptoms reported regarding the musculoskeletal system. Historical: - Allergies: 09:28 Aspirin; hb 09:28 Codeine; hb 09:28 vinegar; hb - Home Meds: :28 aripiprazole 5 mg Oral tab 1 tab once daily [Active]; aspirin 81 mg Oral chew 1 tab hb once daily [Active]; Coreg 12.5 mg Oral tab 1 tab twice a day [Active]; diclofenac Oral [Active]; duloxetine 60 mg Oral cpDR 1 cap once daily [Active]; Famotidine Oral [Active]; gabapentin 300 mg Oral cap 1 cap 3 times per day [Active]; Gralise 600 mg Oral Tb24 [Active]; hydrocodone-acetaminophen 10-325 mg Oral tab [Active]; Lasix 40 mg Oral tab 1 tab once daily [Active]; melatonin 10 mg Oral tab [Active]; metolazone 5 mg Oral tab 1 tab once daily [Active]; omeprazole 40 mg Oral cpDR 1 cap once daily [Active]; prednisone 20 mg Oral tab 1 tab as needed [Active]; Prozac 20 mg Oral cap 1 cap once daily [Active]; Stadol NS Nasal [Active]; symbicort [Active]; topiramate 200 mg Oral tab 1 tab 2 times per day [Active]; valacyclovir 500 mg Oral tab 1 tab once daily [Active]; ventylon [Active]; Zantac Oral [Active]; zolpidem 10 mg Oral tab 1 tab once daily [Active]; - PMHx: 09:28 CHF; cluster migranes; COPD; Rheumatoid Arthritis; hb - PSHx: 09:28 Hysterectomy; Cholecystectomy; hb - Immunization history:: Client reports receiving the 2nd dose of the Covid vaccine. - Social history:: Smoking status: unknown. - Family history:: not pertinent. Screenin:35 Abuse screen: Denies threats or abuse. Denies injuries from another. Nutritional hb screening: No deficits noted. Tuberculosis screening: No symptoms or risk factors identified. Fall Risk Total Howell Fall Scale indicates Low Risk Score (25-44 pts). Fall prevention measures have been instituted. Side Rails Up X 2 Frequent Obs/Assesments occuring Family Present and informed to notify staff if they need to leave bedside As available Patient and Family Educated on Fall Prevention Program and strategies. Assessment: 09:32 Reassessment: Daughter Elisabet [phone]. hb 09:35 General: see triage assessment . hb 10:53 Reassessment: No changes from previously documented assessment. Patient and/or family hb updated on plan of care and expected duration. Pain level reassessed. Vital Signs: 09:25 Pulse Ox 80% on R/A; hb 09:27 BP 115 / 63; Pulse 87; Resp 24; Temp 99; Pulse Ox 93% on Nebulizer Mask; Weight 70 kg; hb Height 5 ft. (152.40 cm); Pain 0/10; 10:54 Pulse 96; Resp 32; Pulse Ox 93% on 3 lpm NC; hb 09:27 Body Mass Index 30.14 (70.00 kg, 152.40 cm) hb ED Course: 09:23 Patient arrived in ED. hb 09:26 Mohan Garber MD is Attending Physician. ma2 09:28 Triage completed. hb 09:31 EKG done, by ED staff, reviewed by Mohan Garber MD. em1 09:32 Arm band placed on. hb 09:35 Patient has correct armband on for positive identification. Bed in low position. Call hb light in reach. Side rails up X2. 09:40 Maintain EMS IV. Dressing intact. Good blood return noted. Site clean \T\ dry. Gauge \T\ hb site: 18G RC. 09:57 XRAY CXR (1 view) In Process Unspecified. EDMS 10:04 Margarita Darby, RN is Primary Nurse. hb 10:11 Notified ED physician of a critical lab result(s). potassium-2.7. sv 10:17 CT Head Brain wo Cont In Process Unspecified. EDMS 11:13 Scott Shaikh DO is Hospitalizing Provider. ma2 12:16 BMP Sent. sv 12:16 Blood Culture Adult (2) Sent. sv 12:16 CBC with Diff Sent. sv 12:16 Hepatic Function Sent. sv 12:16 Ckmb Sent. sv 12:16 D-Dimer Sent. sv 12:16 CPK Sent. sv 12:30 No provider procedures requiring assistance completed. Patient admitted, IV remains in sv place. intact. Administered Medications: 09:56 Drug: Xopenex (levalbuterol) 1.25 mg Route: Inhalation; hb 09:56 Drug: AtroVENT (ipratropium) Aerosol 0.5 mg Route: Inhalation; hb 10:00 Drug: Lasix (furosemide) 40 mg Route: IVP; Site: right antecubital; hb 10:01 Drug: Rocephin (cefTRIAXone) 1 grams Route: IV; Rate: calculated rate; Site: right hb antecubital; 10:53 Drug: AZITHromycin 500 mg Route: IVPB; Infused Over: 1 hrs; Site: right antecubital; hb Outcome: 11:14 Decision to Hospitalize by Provider. ma2 12:30 Admitted to ER Hold. Please see [facility] for further documentation. sv 12:30 Condition: stable 12:30 Instructed on the need for admit. 16:09 Patient left the ED. hb Signatures: Dispatcher [employer] Rakel Thomas, JOHN RN Fred Munguia em1 Margarita Darby RN RN Mohan Garber MD MD ma2 Corrections: (The following items were deleted from the chart) 09: 09:28 Home Meds: guaifenesin 400 mg Oral tab; hb hb 09:31 09:28 Home Meds: hydrocodone-acetaminophen 2.5-500 mg Oral tab 1 tab every 4-6 hours; hbhb 09:31 09:28 Home Meds: prednisolone 15 mg/5 mL Oral soln; hb hb 10:04 09:47 CORONAVIRUS+MREUSEBIO drawn and sent. em1 LETICIAMS
--- NOTE | 2021-07-10 11:15 | EDPHYS ---
Physician Documentation [facility] Name: Eugene Perrin Age: 70 yrs Sex: Female : 1950 Arrival Date: 07/10/2021 Time: 09:23 Bed 3 Private MD: ED Physician Mohan Garber HPI: 07/10 09:53 This 70 yrs old Female presents to ER via EMS with complaints of Altered ma2 Mental Status, Shortness Of Breath. 09:53 The patient presents with confusion. Onset: The symptoms/episode began/occurred ma2 gradually, 1 day(s) ago. Possible causes: low blood sugar, sepsis, copd. Associated signs and symptoms: Pertinent negatives: ataxia, combativeness, diarrhea, dizziness. Current symptoms: In the emergency department the patient's symptoms are unchanged from the initial presentation. The patient has not experienced similar symptoms in the past. Historical: - Allergies: 09:28 Aspirin; hb 09:28 Codeine; hb 09:28 vinegar; hb - Home Meds: 09:28 aripiprazole 5 mg Oral tab 1 tab once daily [Active]; aspirin 81 mg Oral chew 1 tab hb once daily [Active]; Coreg 12.5 mg Oral tab 1 tab twice a day [Active]; diclofenac Oral [Active]; duloxetine 60 mg Oral cpDR 1 cap once daily [Active]; Famotidine Oral [Active]; gabapentin 300 mg Oral cap 1 cap 3 times per day [Active]; Gralise 600 mg Oral Tb24 [Active]; hydrocodone-acetaminophen 10-325 mg Oral tab [Active]; Lasix 40 mg Oral tab 1 tab once daily [Active]; melatonin 10 mg Oral tab [Active]; metolazone 5 mg Oral tab 1 tab once daily [Active]; omeprazole 40 mg Oral cpDR 1 cap once daily [Active]; prednisone 20 mg Oral tab 1 tab as needed [Active]; Prozac 20 mg Oral cap 1 cap once daily [Active]; Stadol NS Nasal [Active]; symbicort [Active]; topiramate 200 mg Oral tab 1 tab 2 times per day [Active]; valacyclovir 500 mg Oral tab 1 tab once daily [Active]; ventylon [Active]; Zantac Oral [Active]; zolpidem 10 mg Oral tab 1 tab once daily [Active]; - PMHx: 09:28 CHF; cluster migranes; COPD; Rheumatoid Arthritis; hb - PSHx: 09:28 Hysterectomy; Cholecystectomy; hb - Immunization history:: Client reports receiving the 2nd dose of the Covid vaccine. - Social history:: Smoking status: unknown. - Family history:: not pertinent. ROS: 09:53 Constitutional: Negative for fever, chills, and weight loss. ma2 09:53 All other systems are negative. Exam: :53 Constitutional: This is a well developed, well nourished patient who is awake, alert, ma2 and in no acute distress. Head/Face: Normocephalic, atraumatic. Eyes: Pupils equal round and reactive to light, extra-ocular motions intact. Lids and lashes normal. Conjunctiva and sclera are non-icteric and not injected. Cornea within normal limits. Periorbital areas with no swelling, redness, or edema. ENT: Nares patent. No nasal discharge, no septal abnormalities noted. Tympanic membranes are normal and external auditory canals are clear. Oropharynx with no redness, swelling, or masses, exudates, or evidence of obstruction, uvula midline. Mucous membranes moist. Neck: Trachea midline, no thyromegaly or masses palpated, and no cervical lymphadenopathy. Supple, full range of motion without nuchal rigidity, or vertebral point tenderness. No Meningismus. Chest/axilla: Normal chest wall appearance and motion. Nontender with no deformity. No lesions are appreciated. Cardiovascular: Regular rate and rhythm with a normal S1 and S2. No gallops, murmurs, or rubs. Normal PMI, no JVD. No pulse deficits. Abdomen/GI: Soft, non-tender, with normal bowel sounds. No distension or tympany. No guarding or rebound. No evidence of tenderness throughout. MS/ Extremity: Pulses equal, no cyanosis. Neurovascular intact. Full, normal range of motion. Neuro: Awake and alert, GCS 15, oriented to person, place, time, and situation. Cranial nerves II-XII grossly intact. Motor strength 5/5 in all extremities. Sensory grossly intact. Cerebellar exam normal. Normal gait. :53 Respiratory: moderate respiratory distress is noted, Respirations: labored breathing, Breath sounds: bronchial sounds, wheezing: that is moderate, is heard diffusely, Respiratory rate: 30 Vital Signs: 09:25 Pulse Ox 80% on R/A; hb 09:27 BP 115 / 63; Pulse 87; Resp 24; Temp 99; Pulse Ox 93% on Nebulizer Mask; Weight 70 kg; hb Height 5 ft. (152.40 cm); Pain 0/10; 10:54 Pulse 96; Resp 32; Pulse Ox 93% on 3 lpm NC; hb 09:27 Body Mass Index 30.14 (70.00 kg, 152.40 cm) hb MDM: 09:26 Patient medically screened. ny2 09:53 Differential Diagnosis: electrolyte abnormality, pneumonia, UTI, volume depletion. ny2 11:12 Data reviewed: vital signs, nurses notes. Counseling: I had a detailed discussion with [facility] the patient and/or guardian regarding: the historical points, exam findings, and any diagnostic results supporting the discharge/admit diagnosis, the presence of at least one elevated blood pressure reading (>120/80) during this emergency department visit, the need for further work-up and treatment in the hospital. Response to treatment: the patient's symptoms have markedly improved after treatment. 07/10 09:27 Order name: ABG [facility] 07/10 09:27 Order name: BMP [facility] 07/10 09:27 Order name: Blood Culture Adult (2) [facility] 07/10 09:27 Order name: CBC with Diff [facility] 07/10 09:27 Order name: CPK [facility] 07/10 09:27 Order name: Ckmb [facility] 07/10 09:27 Order name: D-Dimer [facility] 07/10 09:27 Order name: Hepatic Function [facility] 07/10 09:27 Order name: Lipase; Complete Time: 10:42 [facility] 07/10 09:27 Order name: Magnesium; Complete Time: 10:42 [facility] 07/10 09:27 Order name: NT PRO-BNP; Complete Time: 10:42 [facility] 07/10 09:27 Order name: PT-INR; Complete Time: 10:42 [facility] 07/10 09:27 Order name: Ptt, Activated; Complete Time: 10:42 [facility] 07/10 09:27 Order name: Troponin (emerg Dept Use Only); Complete Time: 10:42 [facility] 07/10 09:27 Order name: XRAY CXR (1 view); Complete Time: 10:42 [facility] 07/10 09:28 Order name: Basic Metabolic Panel; Complete Time: 10:42 [facility] 07/10 09:28 Order name: Blood Culture [facility] 07/10 09:28 Order name: CBC with Automated Diff; Complete Time: 09:57 [facility] 07/10 09:28 Order name: Creatine Phosphokinase; Complete Time: 10:42 [facility] 07/10 09:28 Order name: CKMB Creatine Kinase MB; Complete Time: 10:42 [facility] 07/10 09:28 Order name: D-Dimer; Complete Time: 10:42 [facility] 07/10 09:28 Order name: Liver (Hepatic) Function; Complete Time: 10:42 [facility] 07/10 09:51 Order name: CT Head Brain wo Cont; Complete Time: 10:42 [facility] 07/10 12:01 Order name: Urine Dipstick-Ancillary [facility] 07/10 12:03 Order name: SARS-COV-2 RT PCR [facility] 07/10 09:27 Order name: EKG; Complete Time: 09:28 [facility] 07/10 09:27 Order name: Cardiac monitoring; Complete Time: 09:44 ny2 07/10 09:27 Order name: EKG - Nurse/Tech; Complete Time: 09:31 ny2 07/10 09:27 Order name: IV Saline Lock; Complete Time: 09:44 [facility] 07/10 09:27 Order name: Labs collected and sent; Complete Time: 09:44 ny2 07/10 09:27 Order name: O2 Per Protocol; Complete Time: 09:44 [facility] 07/10 09:27 Order name: O2 Sat Monitoring; Complete Time: 09:44 [facility] 07/10 11:31 Order name: CONS Physician Consult [facility] Administered Medications: 09:56 Drug: Xopenex (levalbuterol) 1.25 mg Route: Inhalation; hb 09:56 Drug: AtroVENT (ipratropium) Aerosol 0.5 mg Route: Inhalation; hb 10:00 Drug: Lasix (furosemide) 40 mg Route: IVP; Site: right antecubital; hb 10:01 Drug: Rocephin (cefTRIAXone) 1 grams Route: IV; Rate: calculated rate; Site: right hb antecubital; 10:53 Drug: AZITHromycin 500 mg Route: IVPB; Infused Over: 1 hrs; Site: right antecubital; hb Disposition: 11:12 Critical Care:. ma2 Disposition Summary: 07/10/21 11:14 Hospitalization Ordered Hospitalization Status: Inpatient Admission ma2 Provider: Scott Shaikh Condition: Guarded ma2 Problem: new ma2 Symptoms: are unchanged ma2 Bed/Room Type: Standard ma2 Location: [facility] ER HOLD(07/10/21 12:16) sv Room Assignment: ERHOLD-(07/10/21 12:16) sv Diagnosis - COPD/ Chronic obstructive pulmonary disease with acute lower respiratory infection ma2 - COPD/ Chronic obstructive pulmonary disease with (acute) exacerbation ma2 - Hypoxemia ma2 - Altered mental status, unspecified ma2 Forms: - Medication Reconciliation Form ma2 - SBAR form ma2 Critical care time excluding procedures: 11:12 Critical care time: Bedside Care: 20 minutes, Consultation: 10 minutes, Family ma2 Intervention: 5 minutes. Total time: 35 minutes Signatures: Dispatcher [employer] Rakel Thomas RN RN Margarita Darby RN RN Mohan Garber MD MD ma2 Corrections: (The following items were deleted from the chart) 09:31 09:28 Home Meds: guaifenesin 400 mg Oral tab; hb hb 09:31 09:28 Home Meds: hydrocodone-acetaminophen 2.5-500 mg Oral tab 1 tab every 4-6 hours; hbhb 09:31 09:28 Home Meds: prednisolone 15 mg/5 mL Oral soln; hb hb 10:04 09:29 CORONAVIRUS+MR.LAB.BRZ ordered. [facility] 12:16 11:14 Telemetry/MedSurg (Inpatient) ma2 12:16 11:14 ma2 sv
[2021-07-10 12:01] LABS: Urine Blood 2+ (Negative); Urine Glucose Negative (Negative); Urine Protein 1+ (Negative); Urine Specific Gravity >=1.030 (1.005-1.030)
[2021-07-10] MEDS ORDERED: KCL 20 MEQ/100 mL IVPB 20 MEQ/100 ML BAG IV SCH (12:20)
[2021-07-10] MEDS ORDERED: HYDROCODONE/APAP 10/325 TAB PO PRN (12:20)
[2021-07-10] MEDS ORDERED: ALBUTEROL 2.5 MG/3 ML NEB SOL NEB PRN (12:20)
[2021-07-10] MEDS ORDERED: ONDANSETRON 4 MG/2 ML VIAL IV PRN (12:20)
[2021-07-10] MEDS ORDERED: IPRATROPIUM BROM 0.5MG/2.5ML NEB PRN (12:20)
[2021-07-10 12:30] VITALS: BMI 30.1
[2021-07-10 13:40] VITALS: O2SAT 93
[2021-07-10] MEDS ORDERED: KCL 20 MEQ/100 mL IVPB 20 MEQ/100 ML BAG IV ONE (14:44)
[2021-07-10] MEDS ORDERED: NA CHLORIDE 0.9% 500 ML ONE (14:44)
[2021-07-10] MEDS ORDERED: HYDROCODONE/APAP 10/325 TAB ONE (15:39)
[2021-07-10 16:17] VITALS: BP 115/63; TEMP 99
--- NOTE | 2021-07-10 16:19 | P.HP ---
Certification for Inpatient Patient admitted to: Inpatient With expected LOS: >2 Midnights Patient will require the following post-hospital care: Hospice Practitioner: I am a practitioner with admitting privileges, knowledge of patient current condition, hospital course, and medical plan of care. Services: Services provided to patient in accordance with Admission requirements found in Title 42 Section 412.3 of the Code of Federal Regulations Patient History Date of Service: 07/10/21 Primary Care Provider: Bryn Reason for admission: Hypoxia, COVID History of Present Illness: This is a 70-year-old female patient with a history of CHF, COPD, cluster migraines that presented with shortness of breath and altered mentation. Family was concerned because she was more confused than normal. Patient has a baseline history of dementia as well. Patient room air was 80%. Patient normally does not have home oxygen. Patient stated that she does not want home oxygen either and wants to be transitioned to hospice care. Patient was worked up in the emergency room and found to have a sodium of 138, potassium 2.7, chloride 100, bicarb 32, BUN of 30, creatinine 1.09, glucose 108. Patient had a white cell count of 5.1, hemoglobin 14.3, hematocrit 42.4, platelet 119. PCO2 of 57. CT of the head was negative. Chest x-ray with viral/edema-like pattern. Medicine was consult that time for admission. Allergies aspirin Allergy (Verified 09/16/15 18:00) Nausea/Vomiting codeine Allergy (Verified 09/16/15 18:00) Nausea/Vomiting vinegar Allergy (Uncoded 04/03/16 19:10) Unknown Home medications list reviewed: Yes Home Medications: ARIPiprazole [Abilify] 5 mg PO BEDTIME 07/18/20 Albuterol Inhaler [Ventolin Inhaler*] 2 puff IH PRN 07/18/20 Aspirin [Aspirin EC 81 MG] 81 mg PO BID 07/18/20 Budesonide/Formoterol Fumarate [Symbicort 80-4.5 Mcg Inhaler] 1 puff IH DAILY 07/18/20 Butorphanol Tartrate 1 spray MARIA T Q6H PRN 07/18/20 Carvedilol [Coreg] 12.5 mg PO BID 07/18/20 Duloxetine HCl 60 mg PO DAILY 07/18/20 Famotidine [Pepcid*] 20 mg PO BID 07/18/20 Furosemide [Lasix*] 40 mg PO DAILY 07/18/20 Gabapentin 600 mg PO TID 07/18/20 Hydrocodone Bit/Acetaminophen [Hydrocodon-Acetaminophn 10-325] 1 tab PO QIDP PRN 07/18/20 Melatonin 10 mg PO BEDTIME 07/18/20 Omeprazole [Prilosec] 40 mg PO DAILY 07/18/20 Topiramate [Topamax] 200 mg PO BID 07/18/20 Valacyclovir [Valtrex*] 500 mg PO DAILY 07/18/20 Zolpidem Tartrate [Ambien*] 10 mg PO BEDTIME 07/18/20 metOLazone [Metolazone] 5 mg PO DAILY 07/18/20 Fluoxetine HCl [Prozac] 20 mg PO DAILY 07/10/21 predniSONE [Prednisone*] 20 mg PO PRN PRN 07/10/21 - Past Medical/Surgical History Has patient received pneumonia vaccine in the past: Yes Diabetic: No -: HTN -: COPD -: shingles -: rheumatoid arthritis -: Adrenal Gland disease -: GERD -: CHF -: hysterectomy -: Bilateral tubal ligation -: Cholecystectomy - Family History Father -: Heart disease, Other (see notes) Notes: alcohol abuse; psoriasis; Mother -: Heart disease, Cancer - Social History Smoking Status: Current every day smoker Counseled patient to stop smoking for: less than 10 minutes Smoking therapy provided: Yes Patient receptive to therapy: No Alcohol use: No CD- Drugs: No Caffeine use: No Place of Residence: Home Review of Systems General: Unremarkable Eyes: Unremarkable ENT: Unremarkable Respiratory: Shortness of Breath, SOB with Excertion Cardiovascular: Unremarkable Gastrointestinal: Unremarkable Musculoskeletal: Unremarkable Integumentary: Unremarkable Neurological: As per HPI Lymphatics: Unremarkable Physical Examination - Vital Signs Temperature: 99 F Blood Pressure: 115/63 Pulse: 87 Respirations: 24 Pulse Ox (%): 80 (Room air) - Physical Exam General: Alert, In no apparent distress, Oriented x3, Cooperative HEENT: PERRLA, Mucous membr. moist/pink, EOMI Neck: Supple, 2+ carotid pulse no bruit, JVD not distended Respiratory: Expiratory wheezes Cardiovascular: No edema, Normal pulses, Regular rate/rhythm, Normal S1 S2, No gallops, No rubs, No murmurs Capillary refill: <2 Seconds Gastrointestinal: Normal bowel sounds, Soft and benign, Non-distended, No ascites, No tenderness, No masses, No rebound, No guarding Musculoskeletal: No clubbing, No swelling, No contractures, No erythema, No tenderness, No warmth Integumentary: No rashes, No breakdown, No significant lesion, No tende rness/swelling, No erythema, No warmth, No cyanosis Neurological: Normal speech, Normal strength at 5/5 x4 extr, Normal tone, Cranial nerves 3-12 intact, Normal reflexes 2+, Normal affect Lymphatics: No axilla or inguinal lymphadenopathy - Studies Laboratory Data (last 24 hrs) 07/10/21 09:40: PT 11.9, INR 1.03, APTT 27.0 07/10/21 09:40: WBC 5.10, Hgb 14.3, Hct 42.4, Plt Count 119 L 07/10/21 09:40: Sodium 138, Potassium 2.7 L*, BUN 30 H, Creatinine 1.09, Glucose 108 H, Magnesium 2.3 D, Total Bilirubin 0.3, AST 17, ALT 15, Alkaline Phosphatase 84, Lipase 85 Assessment and Plan - Problems (Diagnosis) (1) COVID-19 Current Visit: Yes Status: Acute (2) COPD exacerbation Onset Date: 09/17/15 Current Visit: No Status: Acute (3) Hypokalemia Current Visit: No Status: Acute (4) Hypoxia Onset Date: 09/17/15 Current Visit: No Status: Acute - Plan 1. Patient admitted to telemetry floor for further monitoring for her COVID-19 and COPD 2. Patient to remain on oxygen and breathing treatments along with steroids 3. Patient to have Covid vitamin regimen and will consult pulmonology for further care 4. Patient wants to be transitioned to hospice which will facilitate through [employer] social media and crm Discharge Plan: Home Plan to discharge in: 48 Hours - Advance Directives Does patient have a Living Will: Yes Does patient have a Durable POA for Healthcare: Yes - Code Status/Comfort Care Code Status: Do Not Attempt Resuscitat Comfort Measures: Hospice Care Critical Care: No
--- NOTE | 2021-07-10 16:40 | P.DS ---
Admission Date: 07/10/21 Discharge Date: 07/10/21 Primary Care Provider: JULEE Disposition: AMA-LEFT AGAINST MEDICAL ADVIC Discharge Condition: FAIR Reason for Admission: Hypoxia, COVID - Problems (1) COVID-19 Current Visit: Yes Status: Acute (2) COPD exacerbation Onset Date: 09/17/15 Current Visit: No Status: Acute (3) Hypokalemia Current Visit: No Status: Acute (4) Hypoxia Onset Date: 09/17/15 Current Visit: No Status: Acute Brief History of Present Illness: This is a 70-year-old female patient with a history of CHF, COPD, cluster migraines that presented with shortness of breath and altered mentation. Family was concerned because she was more confused than normal. Patient has a baseline history of dementia as well. Patient room air was 80%. Patient normally does not have home oxygen. Patient stated that she does not want home oxygen either and wants to be transitioned to hospice care. Patient was worked up in the emergency room and found to have a sodium of 138, potassium 2.7, chloride 100, bicarb 32, BUN of 30, creatinine 1.09, glucose 108. Patient had a white cell count of 5.1, hemoglobin 14.3, hematocrit 42.4, platelet 119. PCO2 of 57. CT of the head was negative. Chest x-ray with viral/edema-like pattern. Medicine was consult that time for admission. Hospital Course: This was a 70-year-old female that was admitted earlier today for hypoxia secondary to COPD and COVID-19 along with hypokalemia. Patient stated that she wanted to be placed on hospice because of her chronic conditions. We explained to patient that we will admit her and put her on hospice to facilitate that for her and then discharge her after she is slightly more stable. Initially patient was good with this and accepted admission. A couple hours later I was called down for reevaluation of the patient as patient no longer wanted to stay and wanted to go home. I discussed with patient that it would be hard to send her home because we do not have hospice set up for her at this time and that we still needed to help her with her electrolytes. Discussed with her that if she were to go home at this time without any sort of comfort measures or further home care that when she would get worse but to would not have any of those measures to help her for with that transition. Daughter is at bedside as well both of them understand the current situation. Patient is of sound mind at this time and understood everything that we are talking about but insisted on wanting to go home. I discussed with patient and family that she would have to sign a AGAINST MEDICAL ADVICE form. Again both of them understood this and signed fo rm. A med phone number was given to family as well. Both family and patient very grateful for the care that they had received. Understand that they could come back at any time for further evaluation if she were to become too uncomfortable. Vital Signs/Physical Exam: Temp Pulse Resp BP Pulse Ox 99 F 87 24 H 115/63 80 L 07/10/21 16:33 07/10/21 16:33 07/10/21 16:33 07/10/21 16:33 07/10/21 16:33 General: Alert, In no apparent distress, Oriented x3, Cooperative HEENT: PERRLA, Mucous membr. moist/pink, EOMI Neck: Supple, 2+ carotid pulse no bruit, JVD not distended Respiratory: Expiratory wheezes Cardiovascular: No edema, Normal pulses, Regular rate/rhythm, Normal S1 S2, No gallops, No rubs, No murmurs Capillary refill: <2 Seconds Gastrointestinal: Normal bowel sounds, Soft and benign, Non-distended, No ascites, No tenderness, No masses, No rebound, No guarding Musculoskeletal: No clubbing, No swelling, No contractures, No erythema, No tend erness, No warmth Integumentary: No rashes, No breakdown, No significant lesion, No tenderness/swelling, No erythema, No warmth, No cyanosis Neurological: Normal speech, Normal strength at 5/5 x4 extr, Normal tone, Sensation intact, Cranial nerves 3-12 intact Lymphatics: No axilla or inguinal lymphadenopathy Laboratory Data at Discharge: WBC 5.10 K/uL (4.3-10.9) 07/10/21 09:40 Hgb 14.3 g/dL (12.0-15.0) 07/10/21 09:40 Hct 42.4 % (36.0-45.0) 07/10/21 09:40 Plt Count 119 K/uL (152-406) L 07/10/21 09:40 PT 11.9 SECONDS (9.5-12.5) 07/10/21 09:40 INR 1.03 07/10/21 09:40 APTT 27.0 SECONDS (24.3-36.9) 07/10/21 09:40 Sodium 138 mmol/L (136-145) 07/10/21 09:40 Potassium 2.7 mmol/L (3.5-5.1) L* 07/10/21 09:40 BUN 30 mg/dL (7-18) H 07/10/21 09:40 Creatinine 1.09 mg/dL (0.55-1.3) 07/10/21 09:40 Glucose 108 mg/dL (74-106) H 07/10/21 09:40 Magnesium 2.3 mg/dL (1.8-2.4) D 07/10/21 09:40 Total Bilirubin 0.3 mg/dL (0.2-1.0) 07/10/21 09:40 AST 17 U/L (15-37) 07/10/21 09:40 ALT 15 U/L (12-78) 07/10/21 09:40 Alkaline Phosphatase 84 U/L (45-117) 07/10/21 09:40 Lipase 85 U/L (73-393) 07/10/21 09:40 Home Medications: ARIPiprazole [Abilify] 5 mg PO BEDTIME 07/18/20 Albuterol Inhaler [Ventolin Inhaler*] 2 puff IH PRN 07/18/20 Aspirin [Aspirin EC 81 MG] 81 mg PO BID 07/18/20 Budesonide/Formoterol Fumarate [Symbicort 80-4.5 Mcg Inhaler] 1 puff IH DAILY 07/18/20 Butorphanol Tartrate 1 spray MARIA T Q6H PRN 07/18/20 Carvedilol [Coreg] 12.5 mg PO BID 07/18/20 Duloxetine HCl 60 mg PO DAILY 07/18/20 Famotidine [Pepcid*] 20 mg PO BID 07/18/20 Furosemide [Lasix*] 40 mg PO DAILY 07/18/20 Gabapentin 600 mg PO TID 07/18/20 Hydrocodone Bit/Acetaminophen [Hydrocodon-Acetaminophn 10-325] 1 tab PO QIDP PRN 07/18/20 Melatonin 10 mg PO BEDTIME 07/18/20 Omeprazole [Prilosec] 40 mg PO DAILY 07/18/20 Topiramate [Topamax] 200 mg PO BID 07/18/20 Valacyclovir [Valtrex*] 500 mg PO DAILY 07/18/20 Zolpidem Tartrate [Ambien*] 10 mg PO BEDTIME 07/18/20 metOLazone [Metolazone] 5 mg PO DAILY 07/18/20 Fluoxetine HCl [Prozac] 20 mg PO DAILY 07/10/21 predniSONE [Prednisone*] 20 mg PO PRN PRN 07/10/21 Followup: Merry Fall DO, DO [Primary Care Provider] - Time spent managing pt's care (in minutes): 80
[2021-07-10] MEDS ORDERED: METHYLPREDNISOLONE 40 MG INJ IV SCH (17:00)
[2021-07-10] MEDS ORDERED: ARFORMOTEROL TARTRATE 15 MCG/2 ML VIAL.NEB NEB SCH (20:00)
[2021-07-10] MEDS ORDERED: APIXABAN 5 MG TABLET PO SCH (21:00)
[2021-07-10] MEDS ORDERED: ASCORBIC ACID 500 MG TABLET PO SCH (21:00)
[2021-07-10] MEDS ORDERED: MELATONIN 5 MG TABLET PO SCH (21:00)
[2021-07-11] MEDS ORDERED: Levofloxacin500mg IV 500 MG/100 ML BAG IV SCH (06:00)
[2021-07-11] MEDS ORDERED: VITAMIN D 5,000 UNIT CAP PO SCH (09:00)
[2021-07-11] MEDS ORDERED: ASPIRIN EC 81 MG TAB PO SCH (09:00)
[2021-07-11] MEDS ORDERED: ZINC SULFATE 220 MG CAP PO SCH (09:00)
--- NOTE | 2021-07-11 15:14 | EKG ---
Test Date: 2021-07-10 Test Time: 09:30:04 Field Service Tech: GINGER MEASUREMENT RESULTS: Intervals: Rate: 94 UT: 128 QRSD: 114 QT: 364 QTc: 455 [place]: P: 21 UT: 128 QRS: -60 T: -5 INTERPRETIVE STATEMENTS: Sinus rhythm with occasional and consecutive premature ventricular complexes and fusion complexes Left axis deviation Right bundle branch block Inferior infarct, age undetermined Anterior infarct, age undetermined Abnormal ECG Compared to ECG 07/18/2020 11:58:10 Fusion complex(es) now present Ventricular premature complex(es) now present Myocardial infarct finding now present Atrial premature complex(es) no longer present T-wave abnormality no longer present Possible ischemia no longer present Electronically Signed On 07-11-21 15:11:04 CDT by Elijah Bravo
== END 2021-07-10 16:09 | disposition left against medical advice (07) | DRG 178 ==
LOC: ER 09:20 → ERHOLD 11:30
PROVIDERS: ADMIT Family Medicine; ATTEND Family Medicine
DX: U07.1 COVID-19 (principal); J44.1 Chronic obstructive pulmonary disease with (acute) exacerbation; R09.02 Hypoxemia; I11.0 Hypertensive heart disease with heart failure; I50.9 Heart failure, unspecified; E87.6 Hypokalemia; F17.210 Nicotine dependence, cigarettes, uncomplicated; Z53.29 Procedure and treatment not carried out because of patient's decision for other reasons
CPT/HCPCS: 36415; 70450; 71045; 80048; 80076; 81003; 82550; 82553; 82805; 83690; 83735; 83880; 84484; 85025; 85379; 85610; 85730; 87040; 87205; 93005; 96374; 96375; 99285; J0456; J0696; J1940; J3480; J7040; J7050; U0003

== ENCOUNTER 2021-12-11 17:28 | Inpatient (IN) | payer OTHER ==
--- OUTSIDE RECORDS SUMMARY | 2021-12-11 17:31 | XMS REPORT | Clinical Summary ---
:1950 Author Organization [facility] MD [facility] Address [address] [place] [address] Care Team Providers Name Role Phone Zehra [...] Specialty Care Team Description 01/26/2021 Orders Only Lacy Tapia MD SARS-CoV -2 vaccination after 12/11/2020 Surgical History Surgery Date Site/Laterality Comments HYSTERECTOMY [...] Date Recorded Female 07/10/2020 9:50 AM CDT Obstetrics History Last Filed Vital Signs Not on file Plan of Treatment Health Maintenance Due Date Last Done Comments COVID-19 Vaccination (1) 1962 Results Not on fileafter 12/11/2020 Insurance Payer Benefit Plan Subscriber ID Effective Phone Address Typ e / Group Dates MEDICARE MEDICARE PART [id number] 2015-Pres [phone] [facility] Medicare A AND B ent [id number] [place] [address] [employer] SENIOR AETNA SENIOR [id number] 2015-Pres [address] [employer] SUPPLEMENT SUPPLEMENT-SE [place] [phone] [place] [address] Care Teams Party Plan Demonstrator Relationship Specialty Start Date End Date Zehra Hu MD PCP - General Endocrine Surgery 02/04/[address] [place] [id number] Scott Shaikh MD PCP - External Referring [facility] 02/04/[address] [place] [id number] Scott Shaikh MD PCP - External Follow Up [facility] 02/04/[address] [place] [id number]
--- OUTSIDE RECORDS SUMMARY | 2021-12-11 17:32 | XMS REPORT | Continuity of Care Document ---
:1950 Author Organization [facility] t Address [address] [place] [address] Care Team Providers Name Role Phone ALBERTO Primary Care Physician Unavailable SYSTEM, NOT IN Attending Clinician Unavailable BUBBA Attending Clinician Unavailable SAIMA, Margot Attending Clinician Unavailable Tony MYLES, A. Attending Clinician Jose MYLES Attending Clinician Rajat PARKER Attending Clinician Unavailable ALBERTO Attending Clinician Unavailable Payers Payer Name Policy Type Policy Number Effective Date Expiration Date S giancarlo MEDICARE PART A [id number] 2015 AND B 00:00:00 [employer] SENIOR [id number] 2015 SUPPLEMENT-SECOND 00:00:00 KAYLIN ONLY GENERIC [id number] Problems Condition Condition Condition Status Onset Resolution Last Treating Co mments Source Name Details Category Date Date Treatment Clinician Date Obesity Obesity Disease Recurre Method i nce 2-04 [facility] 00:00: Hospita 00 l Anxiety Anxiety Disease Recurre 2019-11 Method i nce 1-05 st 00:00: Hospita 00 l 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 luz maria episode of episode of nce [address] st recurrent recurrent 00:00: Hosp masha major major 00 l depressive depressive disorder disorder CKD CKD Disease Recurre 2019-11 Methodi (chronic (chronic nce 11-11 st kidney kidney 00:00: Hospita disease) disease) 00 l Chronic Chronic Disease Active 2019- kidney kidney 3-12 Anderso disease disease 00:00: n 00 Emphysema Emphysema Disease Active 3-12 Anderso 00:00: n 00 Sore Sore Disease Active 2018- throat throat 1-16 Anderso 00:00: n 00 Bilateral Bilateral Disease Active MD mass of mass of 2- Anderso adrenal adrenal 00:00: n glands glands 00 Hypertensi Hypertensi Disease Active M D on on 12-08 Anderso 00:00: n 00 Herpes Herpes Disease Active Methodi zoster zoster 5-18 st without without 00:00: Hospita complicati complicati 00 l on on Rheumatoid Rheumatoid Disease Recurre 2015-11 Methodi arthritis arthritis nce 1-17 st involving involving 00:00: Hosp masha multiple multiple 00 l sites with sites with positive positive rheumatoid rheumatoid factor factor Elevated Elevated Disease Active 2015-11 Metho di fasting fasting 117 [facility] glucose glucose 00:00: Hospita 00 l Symptomati Symptomati Disease Active C [facility] c c 9[facility]13 [facility] cholelithi 00:00: Me dical asis asis 00 Center Moderate Moderate Disease Active chronic chronic 5-26 Anderso obstructiv obstructiv 00:00: n e e 00 pulmonary pulmonary disease disease Atheroscle Atheroscle Disease Recurre Methodi rosis of rosis of nce 5-24 st coronary coronary 00:00: Hospit a artery artery 00 l Coronary Coronary Disease Active artery artery 5-24 Anderso disease disease 00:00: n due to due to 00 lipid rich lipid rich plaque plaque Adrenal Adrenal Disease Active mass mass 4-14 Anderso 00:00: n 00 Rheumatoid Rheumatoid Disease Active 2008-11 Overview : arthritis arthritis 09 Formattin A nderso 00:00: g of this n 00 note might be different from the original. Overview: ICD-10 History of History of Disease Active M ethodi shingles shingles st Hospita l Essential Essential Disease Recurre Me thodi hypertensi hypertensi nce st on on Hospita l Sleep Sleep Disease Active Methodi apnea apnea st Hospita l COPD COPD Disease Recurre Methodi (chronic (chronic nce st obstructiv obstructiv Ho spita e e [...] Stop Date Source Natural father Heart disease [facility] Natural father Heart disease MD Augustine birch Natural father Hypertension Luis son Natural father Heart attack [facility] Natural mother COPD [facility] Natural mother Skin cancer [place] Natural mother COPD [facility] Natural brother Heart disease And erson Natural sister Hypertension Luis son Natural sister Alopecia [facility] Natural sister Bipolar disorder Meth [facility] [place] [place] Social History Social Habit Start Date Stop Date Quantity Comments Source History of tobacco Smoker Method ist use Hospital Alcohol intake 2020-01-17 2020-01-17 Current MD Hailey collazo 00:00:00 00:00:00 non-drinker of alcohol (finding) Tobacco use and 2016-09-23 2016-09-23 Smokeless tobacco Me thodist exposure 00:00:00 00:00:00 non-user Hospital Cigarettes smoked 2016-03-30 2016-03-30 MD Augustine birch current (pack per 00:00:00 00:00:00 day) - Reported Sex Ass[birth year] At [birth year] [facility] 00:00:00 00:00:00 Hospital Smoking Status Start Date Stop Date Source Former smoker 2016-08-03 00:00:00 2016-08-03 00:00:00 [facility] Smokes tobacco daily 2016-03-30 00:00:00 MD Augustine birch Medications Ordered Filled Start Stop Current Ordering Indication Dosage Frequency Signature Comments Components Source Medication Medication Date Date Medication? Clinician (SIG) Name Name Ngaa Yes [id number] TAKE 1 Methodi r (VALTREX) 7-[address] 500 MG 00:00: MOUTH Hospita tablet 00 DAILY FOR l 30 DAYS. leflunomide 2020- No [id number] TAKE 1 Methodi (ARAVA) 20 7- 10-26 TABLET (20 st MG tablet 00:00: 04:59 MG TOTAL) Ho spita 00 :00 BY MOUTH l DAILY FOR 90 DAYS. valACYclovi 2020- No [id number] TAKE 1 Methodi r (VALTREX) 3- 07- TABLET BY st 500 MG 00:00: 00:00 MOUTH Hospita tablet 00 :00 DAILY FOR l 30 DAYS. leflunomide 2020- No [id number] TAKE 1 Methodi (ARAVA) 20 2- 07- TABLET (20 st MG tablet 00:00: 00:00 MG TOTAL) Ho spita 00 :00 BY MOUTH l DAILY FOR 90 DAYS. etanercept Yes Inject Metho di (ENBREL 1-[address] MINI SUBQ) 11:27: skin. Hospit a 49 l valACYclovi 2019-11- No [id number] TAKE 1 Methodi r (VALTREX) 2-09 03-30 [...] 00:00: Hospita 00 l predniSONE 2019-11- No [id number] Take 3 Methodi (DELTASONE) 0-28 04-[address] 5 mg tablet 00:00: 00:00 day in the Hospita 00 :00 morning l omeprazole 2019-11 Yes 40mg QD Take 40 mg M ethodi (PriLOSEC) 0-[address] 40 MG 00:00: daily. Hospita capsule 00 l ARIPiprazol 2020-0 Yes 5mg QD Take 5 mg M ethodi e (ABILIFY) 9-[address] 5 MG tablet 00:00: nightly. Ho spita 00 l BABY 2020-0 Yes 81mg QD Take 81 mg Methodi ASPIRIN 9-[address] ORAL 10:07: daily. 2 Hospita 25 pills a l day budesonide- 2020-0 Yes Q.5D Inhale 2 Me thodi formoterol 9-10 (two) st (SYMBICORT) 10:07: times a Hos ilda 80-4.5 25 day as l mcg/actuati needed. on inhaler butorphanol 2020-0 Yes as needed. Methodi (STADOL) 10 9-10 st mg/mL nasal 10:07: Hospit a spray 25 l carvedilol 2020-0 Yes 12.5mg Q.5D Take 12.5 Methodi (COREG) 9-[address] 12.5 MG 10:07: mouth 2 Hospita tablet 25 (two) l times a day. furosemide 2020-0 Yes 40mg QD Take 40 mg M ethodi (LASIX) 40 9-[address] MG tablet 10:07: daily. Hospit a 25 l HYDROcodone 2020-0 Yes 1{tbl} Take 1 Me thodi -acetaminop 9-[address] hen (NORCO 10:07: mouth. Hospi ta 10-325) 25 l 10-325 mg per tablet metOLazone 2020-0 Yes 5mg QD Take 5 mg Me thodi (ZAROXOLYN) 9-[address] 5 MG tablet 10:07: daily. Hosp masha 25 l potassium 2020-0 Yes 20meq Take 20 Meth luz maria chloride 9-[address] (K-DUR) 20 10:07: mouth. Hospi ta MEQ CR 25 l tablet ferrous 2020-0 Yes Take by Methodi sulfate 325 9-[address] (65 FE) MG 10:07: Hospita tablet 25 l sertraline 2020-0 Yes 50mg QD Take 50 mg M ethodi (ZOLOFT) 50 8-[address] MG tablet 00:00: daily. Hospit a 00 l potassium 2020-0 Yes 20meq Take 20 MD chloride 6-03 mEq by Anderso (K-DUR,KLOR 11:21: mouth 3 n -CON M) 20 47 (three) mEq tablet times a day. predniSONE 2020-0 Yes 20mg Take 20 mg M D (DELTASONE) 6-03 by mouth Augustine rso 5 mg tablet 11:16: as needed. n 37 FOR RHEUMATOID ARTHRITIS FLARE UP carvedilol 2020-0 Yes 12.5mg 12.5 mg MD (COREG) 6-03 twice Anderso 12.5 mg 11:16: daily. n tablet 37 furosemide 2020-0 Yes 40mg Take 40 mg M D (LASIX) 40 6-03 by mouth Luis so mg tablet 11:16: daily. n 37 aspirin 81 2020-0 Yes 81mg Take 81 mg M D mg EC 6-03 by mouth Anderso tablet 11:16: twice n 37 daily. butorphanol 2020-0 Yes 1{spray Inhale 1 MD (STADOL) 10 6-03 } spray into An derso mg/mL nasal 11:16: each n spray 37 nostril every 4 (four) hours as needed for moderate pain. HYDROcodone 2020-0 Yes 1{tbl} Take 1 MD -acetaminop 6-03 tablet by And erso hen (NORCO) 11:16: mouth 2 n 10 mg-325 37 (two) mg per times a tablet day as needed. albuterol 2020-0 Yes 1{puff} Inhale 1 M D (VENTOLIN 6-03 puff by Anderso HFA) 90 11:16: mouth as n mcg/puff 37 needed. inhaler budesonide- 2020-0 Yes Inhale by M D formoterol 6-03 mouth Anderso (SYMBICORT) 11:16: twice n 80-4.5 37 daily. mcg/actuati on inhaler topiramate 2020-0 Yes 400mg Take 400 MD (TOPAMAX) 6-03 mg by Anderso 200 mg 11:16: mouth n tablet 37 twice daily. leflunomide 2020-0 Yes 20mg Take 20 mg MD (ARAVA) 20 6-03 by mouth Luis so mg tablet 11:16: daily. n 37 diazePAM 2020-0 Yes 10mg Take 10 mg MD (VALIUM) 10 6-03 by mouth Augustine rso mg tablet 11:16: as needed. n 37 omeprazole 2020-0 Yes 40mg Take 40 mg M D (PriLOSEC) 6-03 by mouth Luis so 40 MG 11:16: at n capsule 37 bedtime. melatonin 2020-0 Yes 10mg Take 10 mg MD 10 mg 6-03 by mouth Anderso tablet 11:16: at n 37 bedtime. valACYclovi 2020-0 Yes 500mg Take 500 M D r (VALTREX) 6-03 mg by Anderso 500 mg 11:16: mouth n tablet 37 daily. gabapentin 2020-0 Yes 300mg Take 300 MD (NEURONTIN) 6-03 mg by Anderso 300 mg 11:16: mouth 3 n capsule 37 (three) times a day. etanercept 2020-0 Yes 50mg Inject 50 MD (ENBREL) 50 6-03 mg under Augustine rso mg/mL (0.98 11:16: the skin n mL) 37 once a injection week. famotidine 2020-0 Yes 10mg Take 10 mg M D (PEPCID) 10 6-03 by mouth Augustine rso mg tablet 11:16: twice n 37 daily. folic acid 2020-0 Yes 1mg Take 1 mg MD (FOLVITE) 1 6-03 by mouth Augustine rso mg tablet 11:16: twice n 37 daily. metOLazone 2020-0 Yes 5mg Take 5 mg MD (ZAROXOLYN) 6-03 by mouth Augustine rso 5 mg tablet 11:16: daily. n 37 ARIPiprazol 2020-0 Yes 5mg Take 5 mg M D e (ABILIFY) 6-03 by mouth Augustine rso 5 mg tablet 11:16: at n 37 bedtime. zolpidem 2020-0 Yes 10mg Take 10 mg MD (AMBIEN) 10 6-03 by mouth Augustine rso mg tablet 11:16: at n 37 bedtime. ferrous 2020-0 Yes Take by MD sulfate 325 6-03 mouth Anderso mg (65 mg 11:16: daily. n elemental 37 iron per tablet) tablet DULoxetine 2020-0 Yes daily. MD (CYMBALTA) 5-15 Anderso 60 mg 00:00: n capsule 00 umeclidiniu 2020-0 Yes daily. Meth luz maria m (Incruse 5-13 st Ellipta) 00:00: Hospita 62.5 00 l mcg/actuati on blister with device INCRUSE Yes daily. ELLIPTA 5-13 Anderso 62.5 00:00: n mcg/actuati 00 on dsdv leflunomide 2020- No [id number] TAKE 1 Methodi (ARAVA) 20 4-28 02-01 TABLET (20 st MG tablet 00:00: 00:00 MG TOTAL) Ho spita 00 :00 BY MOUTH l DAILY FOR 90 DAYS. gabapentin Yes TAKE 2 Metho di (NEURONTIN) 3-[address] 300 mg 00:00: BY MOUTH 3 Hospi ta capsule 00 TIMES A l DAY potassium 2020- No Bilateral 20meq Take 2 MD chloride 3-12 03-13 mass of tablets Augustine rso (KLOR-CON) 00:00: 05:59 adrenal (20 mEq) n 10 mEq CR 00 :00 glands by mouth tablet daily. folic acid 2017-11 Yes [id number] Take 2 Methodi (FOLVITE) 1 2-03 tablets [...] day. Take 2 tablets twice a day zolpidem Yes [id number] QD nightly as Methodi (AMBIEN) 10 5-[address] mg tablet 00:00: Hospita 00 l furosemide Yes 40mg Q.5D Take [address] (LASIX) 40 9-27 by mouth 2 Angela es - MG tablet 16:06: (two) Medical 49 times Center daily. BABY Yes Take by [facility] ASPIRIN 08-03 mouth. [facility] - ORAL 16:06: Medical 49 Center carvedilol Yes 12.5mg Take 12.[address] (COREG) 9-27 mg by [facility] - 12.5 MG 16:06: mouth 2 Medical tablet 49 (two) Center times daily with breakfast and dinner. leflunomide Yes 10mg QD Take [address] (ARAVA) 10 -27 by mouth [facility] - MG tablet 16:06: daily. Medica l 49 Center HYDROcodone Yes 1{tbl} Take [address] -acetaminop -27 tablet by Angela es - hen (NORCO 16:06: mouth Medica l 10-325) 49 every 6 Center 10-325 mg (six) per tablet hours as needed for Pain. butorphanol Yes None [facility] (STADOL) 10 - Entered. Luke s - mg/mL nasal 16:06: Medica l spray 49 Center estrogens, Yes [address] conjugated, 9- DAILY. [facility] - (PREMARIN) 16:06: Medical 0.625 MG 49 Center tablet fLUoxetine Yes [address] (PROZAC) 20 - EVERY [facility] - MG capsule 16:06: MORNING. Med ical 49 Center budesonide- Yes Inhale by C [facility] formoterol - mouth via Luke s - (SYMBICORT) 16:06: inhaler as Medical 80-4.5 49 needed . Center mcg/actuati on inhaler albuterol Yes 1{puff} Inhale [address] HFA - puff by [facility]ukes - (VENTOLIN 16:06: mouth via Med ical HFA) 90 49 inhaler Center mcg/actuati every 6 on inhaler (six) hours as needed . acyclovir Yes 800mg Take [address] (ZOVIRAX) 9-27 mg by [facility] - 800 MG 16:06: mouth. Medical tablet 49 Center furosemide 0 Yes 40mg Q.5D Take [address] (LASIX) 40 9-27 by mouth 2 Angela es - MG tablet 16:06: (two) Medical 49 times Center daily. BABY Yes Take by [facility] ASPIRIN 9- mouth. [facility] - ORAL 16:06: Medical 49 Center carvedilol Yes 12.5mg Take 12.[address] (COREG) 9-27 mg by [facility] - 12.5 MG 16:06: mouth 2 Medical tablet 49 (two) Center times daily with breakfast and dinner. leflunomide Yes 10mg QD Take [address] (ARAVA) 10 -27 by mouth [facility] - MG tablet 16:06: daily. Medica l 49 Center HYDROcodone Yes 1{tbl} Take [address] -acetaminop 9-27 tablet by Angela es - hen (NORCO 16:06: mouth Medica l 10-325) 49 every 6 Center 10-325 mg (six) per tablet hours as needed for Pain. butorphanol Yes None [facility] (STADOL) 10 - Entered. Luke s - mg/mL nasal 16:06: Medica l spray 49 Center estrogens, Yes [address] conjugated, 9- DAILY. [facility]ukes - (PREMARIN) 16:06: Medical 0.625 MG 49 Center tablet fLUoxetine Yes [address] (PROZAC) 20 - EVERY [facility] - MG capsule 16:06: MORNING. Med ical 49 Center budesonide- Yes Inhale by C [facility] formoterol 9 mouth via Luke s - (SYMBICORT) 16:06: inhaler as Medical 80-4.5 49 needed . Center mcg/actuati on inhaler albuterol Yes 1{puff} Inhale [address] HFA 9- puff by [facility] - (VENTOLIN 16:06: mouth via Med ical HFA) 90 49 inhaler Center mcg/actuati every 6 on inhaler (six) hours as needed . acyclovir Yes 800mg Take [address] (ZOVIRAX) 9-27 mg by [facility] - 800 MG 16:06: mouth. Medical tablet 49 Center levofloxaci Yes [facility] n 9-15 [facility] - (LEVAQUIN) 00:00: Medical 750 MG 00 Center tablet levofloxaci Yes [facility] n 9-15 [facility] - (LEVAQUIN) 00:00: Medical 750 MG 00 Center tablet SANTYL [address] unit/gram 8- [facility] - ointment 00:00: Medical 00 [place] SANTYL [address] unit/gram 8- [facility] - ointment 00:00: Medical 00 [place] predniSONE Yes [facility] (DELTASONE) 7-26 [facility] - 5 MG tablet 00:00: Medica l 00 [place] predniSONE Yes [facility] (DELTASONE) 7-26 [facility] - 5 MG tablet 00:00: Medica l 00 [place] BUTRANS [address] mcg/hour 7- [facility] - PTWK 00:00: Medical 00 [place] BUTRANS [address] mcg/hour 7-25 [facility] - PTWK 00:00: Medical 00 [place] topiramate Yes [facility] (TOPAMAX) 7- [facility] - 50 MG 00:00: Medical tablet 00 [place] topiramate Yes [facility] (TOPAMAX) 7- [facility] - 50 MG 00:00: Medical tablet 00 [place] gabapentin Yes 3{tbl} Take [address] (GRALISE) 4-12 tablets by Luke s - 600 mg Tb24 00:00: mouth. [address] gabapentin Yes 3{tbl} Take [address] (GRALISE) 4-12 tablets by Luke s - 600 mg Tb24 00:00: mouth. [address] Immunizations Ordered Immunization Filled Immunization Date Status Commen ts Source Name Name PFIZER COVID-19 MRNA 2020-12-19 Completed Meth odist VACCINATION 00:00:00 Hospital PFIZER COVID-19 MRNA 2020-11-21 Completed Meth odist VACCINATION 00:00:00 Hospital Vital Signs Vital Name Observation Time Observation Value Comments Source Systolic blood 2021-02-18 16:28:00 98 mm[Hg] Method ist Hospital pressure Diastolic blood 2021-02-18 16:28:00 65 mm[Hg] Meth[facility] dist Hospital pressure Heart rate 2021-02-18 16:28:00 91 /min [facility] Respiratory rate 2021-02-18 16:28:00 18 /min Meth odist [facility] Body height 2021-02-18 16:28:00 160 cm [facility] Body weight 2021-02-18 16:28:00 100.699 kg [facility] BMI 2021-02-18 16:28:00 39.33 kg/m2 [facility] Oxygen saturation in 2021-02-18 16:28:00 93 /min [facility] Arterial blood by Pulse oximetry Procedures Procedure Date / Time Performing Clinician Source Performed COVID-19 ANTI-SPIKE IGG 2021-02-18 17:15:00 [facility] ANTIBODY TITER C-REACTIVE PROTEIN 2021-02-18 17:15:00 [facility] SEDIMENTATION RATE 2021-02-18 17:15:00 [facility] URINALYSIS, AUTOMATED 2021-02-18 17:15:00 [facility] WITH MICROSCOPY COMPREHENSIVE METABOLIC 2021-02-18 17:15:00 [facility] PANEL HC COMPLETE BLD COUNT 2021-02-18 17:15:00 [facility] W/AUTO DIFF ESTIMATED GFR 2021-02-18 17:15:00 [facility] Plan of Care Planned Activity Planned Date Details Comments Source Future Scheduled 2021-10-07 65+ PNEUMOCOCCAL [facility] Test 10:41:46 VACCINE (1 of 4 - PCV13) [code = 65+ PNEUMOCOCCAL VACCINE (1 of 4 - PCV13)] Future Scheduled 2021-10-07 BREAST CANCER [facility] Test 10:41:46 SCREENING [code = BREAST CANCER SCREENING] Future Scheduled 2021-10-07 COLONOSCOPY SCREENING [facility] Test 10:41:46 [code = COLONOSCOPY SCREENING] Future Scheduled 2021-10-07 SHINGLES VACCINES (#1) [facility] Test 10:41:46 [code = SHINGLES VACCINES (#1)] Future Scheduled 2021-10-07 INFLUENZA VACCINE [facility] Test 10:41:46 [code = INFLUENZA VACCINE] Future Scheduled 2021-10-07 COVID-19 VACCINE (3 - [facility] Test 10:41:46 Booster for Pfizer series) [code = COVID-19 VACCINE (3 - Booster for Pfizer series)] Future Scheduled 1962 COVID-19 Vaccination [facility] Test 00:00:00 (1) [code = COVID-19 Vaccination (1)] Encounters Start End Encounter Admission Attending Care Care Encounter Source Date/Time Date/Time Type Type Clinicians Facility Department ID 2020-07-09 Outpatient SYSTEM, MDA MDA [id number] 17:00:04 PROVIDER Austin collazo 2020-05-27 Outpatient SURIMA, MDA MDA [id number] 11:57:19 KUNAL collazo 2020-05-26 Outpatient SYSTEM, MDA TATA [id number] 14:41:46 PROVIDER Austin collazo 2020-05-13 Outpatient FURROW, MDA MDA [id number] 09:03:37 JP collazo 2021-06-01 2021-06-01 Refill Tony, 1.2.840.1 [id number] Methodi 00:00:00 00:00:00 Kevin Duron 83178.1.1 660 s t 3.430.2.7 Hospit a .3.691707 l .8 2021-05-19 2021-05-19 Telemedici Tony, 1.2.840.1 [id number] Methodi 10:46:28 10:48:28 ne Kevin Duron 58155.1.1 227 s t 3.430.2.7 Hospit a .3.357576 l .8 2021-02-18 2021-03-10 Office Tony, 1.2.840.1 [id number] Methodi 10:57:47 09:23:45 Visit Kevin Duron 43258.1.1 456 s t 3.430.2.7 Hospit a .3.711333 l .8 2021-02-18 2021-02-18 Lab Tony, 1.2.840.1 [id number] Methodi 12:03:45 12:08:45 Kevin Duron 10633.1.1 826 s t 3.430.2.7 Hospit a .3.814593 l .8 2021-02-18 2021-02-18 Travel 1.2.840.1 [id number] [id number] Methodi 00:00:00 00:00:[address] 3.430.2.7 0.2.7.3.698 Ho spita .3.328239 084.8 l .8 2021-02-03 2021-02-03 Refill Jimenez, 1.2.840.1 [id number] Methodi 00:00:00 00:00:00 Kevin Frost. 99253.1.1 049 s t 3.430.2.7 Hospit a .3.085940 l .8 2020-12-19 2021-01-20 Clinical 1.2.840.1 [id number] Methodi 10:16:28 15:59:[address] 3.430.2.7 Hospit a .3.361890 l .8 2021-01-13 2021-01-13 Orders Rajat, 1.2.840.1 [id number] Methodi 00:00:00 00:00:00 Only Sowmya [address]36.1.[address] 3.430.2.7 Hospit a .3.413491 l .8 2020-12-11 2020-12-11 Travel 1.2.840.1 [id number] [id number] Methodi 00:00:00 00:00:[address] 3.430.2.7 0.2.7.3.698 Ho spita .3.623089 084.8 l .8 2020-12-08 2020-12-08 Refill Jimenez, 1.2.840.1 [id number] Methodi 00:00:00 00:00:00 Kevin Frost. 80076.1.1 462 s t 3.430.2.7 Hospit a .3.458940 l .8 2020-07-08 2020-07-08 Outpatient EDINSON DOMINGUEZ MDA MDA [id number] 00:00:00 00:00:00 YINKA collazo 2020-05-27 2020-05-27 Outpatient EDINSON DOMINGUEZ MDA MDA [id number] 00:00:00 00:00:00 YINKA collazo 2020-05-20 2020-05-20 Outpatient EDINSON DOMINGUEZ, TATA MDA [id number] 00:00:00 00:00:00 YINKA collazo Results Test Description Test Time Test Comments Results Result Comments Source Urinalysis, automated with microscopy 2021-02-18 18:01:18 Test Item Value Reference Range Interpretation Comme nts Color, UA (test code = 5778-6) Straw Appearance, UA (test code = Clear 5767-9) Specific gravity, UA (test 1.001-1.035 code = 5811-5) pH, UA (test code = 5803-2) 5.0-8.5 Protein, UA (test code = Negative Negative 55981-7) Glucose, UA (test code = Negative Negative 55091-2) Ketones, UA (test code = Negative Negative 2514-8) Bilirubin, UA (test code = Negative Negative 5770-3) Blood, UA (test code = 5794-3) Negative Negative Nitrite, UA (test code = Negative Negative 5802-4) Urobilinogen, UA (test code = <2.0 <2.0 36148-4) Leukocyte esterase, UA (test Negative Negative code [...] alexa l/abnormal. RBC, UA (test code = 30656-9) None seen See_Comment [Automated message] The system which generated this result transmitted ref erence range: 0 - 5 /HPF. The r eference range was not used to interpret this result as alexa l/abnormal. Bacteria, UA (test code = None seen None seen 66606-4) Hyaline casts, UA (test code = See_Comment [Automated message] The system 5796-8) which generated this result transmitted ref erence range: /LPF. The refer ence range was not used to int erpret this result as alexa l/abnormal. Yeast, UA (test code = None seen 62530-9) Yeast with pseudohyphae, UA None seen (test code = 39763-5) [facility]
[2021-12-11] MEDS ORDERED: METHYLPREDNISOLONE 125 MG INJ ONE (18:14)
[2021-12-11 18:34] LABS: Protime INR 0.99
[2021-12-11 18:35] LABS: Absolute Lymphocytes (CBC) 0.5 K/uL (0.7-4.9); Hematocrit 39.9 % (36.0-45.0); Lymphocytes % 4.4 % (15.3-44.8); MPV 8.4 fL (7.6-11.3); RBC Red Blood Cell Count 4.35 M/uL (3.86-4.86)
--- NOTE | 2021-12-11 19:01 | RAD REPORT ---
EXAM DESCRIPTION: RAD - Chest Single View - 12/11/2021 6:37 pm CLINICAL HISTORY: Congestion;Cough;Dyspnea Chest pain. COMPARISON: Chest Single View dated 07/10/2021; Chest Single View dated 07/18/2020; Chest Pa And Lat (2 Views) dated 09/19/2019; CHEST PA AND LAT 2 VIEW dated 01/19/2016 FINDINGS: Portable technique limits examination quality. Mild bilateral interstitial lung opacities are present suspicious for mild viral infection. The heart is normal in size. No displaced fractures.
[2021-12-11 19:25] LABS: Bilirubin Direct 0.3 mg/dL (0-0.2); Bilirubin Total 0.9 mg/dL (0.2-1.0); Protein, Total 6.9 g/dL (6.4-8.2); Troponin High Sensitivity 37.2 pg/mL (<58.9)
[2021-12-11 19:28] LABS: Potassium 1.9 mmol/L (3.5-5.1)
--- NOTE | 2021-12-11 19:43 | EDPHYS ---
Physician Documentation [facility] Name: Eugene Perrin Age: 71 yrs Sex: Female : 1950 Arrival Date: 12/11/2021 Time: 17:39 Bed 18 Private MD: ED Physician Cm Landon HPI: 12/11 18:34 This 71 yrs old Female presents to ER via EMS with complaints of Shortness of breath. kdr 18:34 The patient has shortness of breath at rest. Onset: The symptoms/episode began/occurred kdr this morning, 6 hour(s) ago. Duration: The symptoms are continuous, and are unchanged since they started. Associated signs and symptoms: Pertinent positives: non-productive cough. Severity of symptoms: At their worst the symptoms were mild moderate just prior to arrival, in the emergency department the symptoms are unchanged. The patient has experienced similar episodes in the past, a few times. It is unknown whether or not the patient has recently seen a physician. Historical: - Allergies: 17:41 Aspirin; doan 17:41 Codeine; doan 17:41 vinegar; doan - Home Meds: 17:41 aripiprazole 5 mg Oral tab 1 tab once daily [Active]; aspirin 81 mg Oral chew 1 tab doan once daily [Active]; Coreg 12.5 mg Oral tab 1 tab twice a day [Active]; diclofenac Oral [Active]; duloxetine 60 mg Oral cpDR 1 cap once daily [Active]; Famotidine Oral [Active]; gabapentin 300 mg Oral cap 1 cap 3 times per day [Active]; Gralise 600 mg Oral Tb24 [Active]; guaifenesin 400 mg Oral tab [Active]; hydrocodone-acetaminophen 10-325 mg Oral tab [Active]; hydrocodone-acetaminophen 2.5-500 mg Oral tab 1 tab every 4-6 hours [Active]; Lasix 40 mg Oral tab 1 tab once daily [Active]; melatonin 10 mg Oral tab [Active]; metolazone 5 mg Oral tab 1 tab once daily [Active]; omeprazole 40 mg Oral cpDR 1 cap once daily [Active]; prednisolone 15 mg/5 mL Oral soln [Active]; prednisone 20 mg Oral tab 1 tab as needed [Active]; Prozac 20 mg Oral cap 1 cap once daily [Active]; Stadol NS Nasal [Active]; symbicort [Active]; topiramate 200 mg Oral tab 1 tab 2 times per day [Active]; valacyclovir 500 mg Oral tab 1 tab once daily [Active]; ventylon [Active]; Zantac Oral [Active]; zolpidem 10 mg Oral tab 1 tab once daily [Active]; - PMHx: 17:41 CHF; cluster migranes; COPD; Rheumatoid Arthritis; doan - PSHx: 17:41 Cholecystectomy; hysterectomy; doan - Immunization history:: Adult Immunizations up to date. - Social history:: Smoking status: unknown. ROS: 18:34 Constitutional: Negative for fever, chills, and weight loss, Eyes: Negative for injury, kdr pain, redness, and discharge, ENT: Negative for injury, pain, and discharge, Neck: Negative for injury, pain, and swelling, Abdomen/GI: Negative for abdominal pain, nausea, vomiting, diarrhea, and constipation, Back: Negative for injury and pain, : Negative for injury, bleeding, discharge, and swelling, MS/Extremity: Negative for injury and deformity, Skin: Negative for injury, rash, and discoloration, Neuro: Negative for headache, weakness, numbness, tingling, and seizure activity. Psych: Negative for depression, anxiety, suicide ideation, homicidal ideation, and hallucinations, Allergy/Immunology: Negative for hives, rash, and allergies, Endocrine: Negative for neck swelling, polydipsia, polyuria, polyphagia, and marked weight changes, Hematologic/Lymphatic: Negative for swollen nodes, abnormal bleeding, and unusual bruising. 18:34 Cardiovascular: Positive for chest pain, edema, Diffuse pressure, mild lower extremity swelling symmetric, Negative for edema, palpitations, paroxysmal nocturnal dyspnea. 18:34 Respiratory: Positive for cough, with no reported sputum, dyspnea on exertion, shortness of breath, at rest. wheezing, Negative for hemoptysis, orthopnea, pleurisy. Exam: 18:31 ECG was reviewed by the Attending Physician. kdr 18:34 Constitutional: This is a well developed, well nourished patient who is awake, alert, kdr and in no acute distress. Head/Face: Normocephalic, atraumatic. Eyes: Pupils equal round and reactive to light, extra-ocular motions intact. Lids and lashes normal. Conjunctiva and sclera are non-icteric and not injected. Cornea within normal limits. Periorbital areas with no swelling, redness, or edema. Neck: Trachea midline, no thyromegaly or masses palpated, and no cervical lymphadenopathy. Supple, full range of motion without nuchal rigidity, or vertebral point tenderness. No Meningismus. Chest/axilla: Normal chest wall appearance and motion. Nontender with no deformity. No lesions are appreciated. Cardiovascular: Regular rate and rhythm with a normal S1 and S2. No gallops, murmurs, or rubs. Normal PMI, no JVD. No pulse deficits. Abdomen/GI: Soft, non-tender, with normal bowel sounds. No distension or tympany. No guarding or rebound. No evidence of tenderness throughout. Back: No spinal tenderness. No costovertebral tenderness. Full range of motion. Skin: Warm, dry with normal turgor. Normal color with no rashes, no lesions, and no evidence of cellulitis. MS/ Extremity: Pulses equal, no cyanosis. Neurovascular intact. Full, normal range of motion. Neuro: Awake and alert, GCS 15, oriented to person, place, time, and situation. Cranial nerves II-XII grossly intact. Motor strength 5/5 in all extremities. Sensory grossly intact. Cerebellar exam normal. Normal gait. Psych: Awake, alert, with orientation to person, place and time. Behavior, mood, and affect are within normal limits. 18:34 Respiratory: mild respiratory distress is noted, Respirations: labored breathing, that is mild, shallow respirations, Breath sounds: wheezing: that is mild, is heard diffusely. Vital Signs: 17:39 BP 90 / 51; Pulse 126; Resp 22; Temp 97.8(O); Pulse Ox 100% on 2 lpm NC; Weight 77.11 doan kg; Height 5 ft. 5 in. (165.10 cm); 18:38 BP 100 / 68; Pulse 80; Resp 22; Pulse Ox 100% on 2 lpm NC; doan 21:04 BP 106 / 72; Pulse 69; Resp 20; Pulse Ox 98% on 2 lpm NC; ll3 22:00 BP 132 / 87; Pulse 55; Resp 20; Pulse Ox 97% on 2 lpm NC; ll3 12/12 19:11 BP 100 / 45; Pulse 62; Resp 16; Pulse Ox 99% ; Pain 0/10; michele 12/11 17:39 Body Mass Index 28.29 (77.11 kg, 165.10 cm) doan MDM: 12/11 18:34 Data reviewed: vital signs, nurses notes, lab test result(s), radiologic studies. kdr Counseling: I had a detailed discussion with the patient and/or guardian regarding: the historical points, exam findings, and any diagnostic results supporting the discharge/admit diagnosis, lab results, radiology results. 19:41 Differential diagnosis: Anemia Anxiety Reaction asthma, Bronchitis CHF exacerbation, 7 Chronic Obstructive Pulmonary Disease Myocardial Infarction pneumonia, Pneumothorax Psychogenic pulmonary edema, reactive airway disease. Response to treatment: the patient's symptoms have mildly improved after treatment. 19:42 Patient medically screened. 7 12/11 17:54 Order name: Basic Metabolic Panel [facility] 12/11 17:54 Order name: CBC with Diff [facility] 12/11 17:54 Order name: LFT's [facility] 12/11 17:54 Order name: Magnesium kdr 12/11 17:54 Order name: NT PRO-BNP [facility] 12/11 17:54 Order name: PT-INR; Complete Time: 19:19 kdr 12/11 17:54 Order name: Troponin HS kdr 12/11 19:45 Order name: CBC Smear Scan [facility] 12/11 20:41 Order name: CRP la1 12/12 04:18 Order name: CBC with Automated Diff [facility] 12/12 05:15 Order name: COVID-19/FLU A+B/RSV (Document "Date of Onset" if Symptomatic) ds4 12/12 05:38 Order name: Comprehensive Metabolic Panel [facility] 12/12 05:38 Order name: Lipid Profile [facility] 12/11 17:54 Order name: XRAY Chest (1 view); Complete Time: 19:19 kdr 12/11 17:54 Order name: EKG; Complete Time: 17:55 kdr 12/12 05:38 Order name: T4 Free [facility] 12/12 05:38 Order name: Thyroid Stimulating Hormone [facility] 12/12 06:09 Order name: COVID-19/FLU A+B/RSV [facility] 12/12 09:23 Order name: Basic Metabolic Panel [facility] 12/12 09:23 Order name: NT PRO-BNP [facility] 12/12 13:06 Order name: Basic Metabolic Panel [facility] 12/12 14:14 Order name: Magnesium [facility] 12/11 17:54 Order name: Cardiac monitoring; Complete Time: 18:32 kdr 04 17:54 Order name: EKG - Nurse/Tech; Complete Time: 18:32 kdr 12/11 17:54 Order name: IV Saline Lock; Complete Time: 18:32 kdr 0204 17:54 Order name: Labs collected and sent; Complete Time: 18:32 kdr 04 17:54 Order name: O2 Per Protocol; Complete Time: 18:32 kdr 12/11 17:54 Order name: O2 Sat Monitoring; Complete Time: 18:32 kdr EC:31 Rate is 86 beats/min. Rhythm is irregular, Sinus arrythmia with PACs, Right bundle kdr branch block. QRS [place] is Normal. IN interval is normal. QRS interval is normal. QT interval is normal. Clinical impression: Sinus arrythmia. Interpreted by me. Reviewed by me. Administered Medications: 18:31 Drug: SOLU-Medrol (methylPrednisoLONE) 125 mg Route: IVP; Site: right forearm; 18:32 Follow up: Response: No adverse reaction doan 20:07 Not Given (Not availablee): NS 0.9% with KCl 40 mEq/L 1000 ml IV at per protocol ll3 continuous 20:27 Drug: Potassium Chloride 20 mEq Route: IV; Rate: 50 ml/hr; Site: right antecubital; ll3 22:48 Follow up: Response: No adverse reaction; IV Status: Completed infusion; IV Intake: ll3 100ml 20:28 Drug: Potassium Effervescent Tablet 50 mEq Route: PO; ll3 22:48 Follow up: Response: No adverse reaction ll3 20:53 Drug: Albuterol - atroVENT (ipratropium) (3:1) (2.5 mg - 0.5 mg) 3 ml Route: Nebulizer; ll3 21:16 Follow up: Response: No adverse reaction ll3 22:34 Drug: Rocephin - (cefTRIAXone) 1 grams Route: IVPB; Infused Over: 30 mins; Site: right ll3 antecubital; 23:13 Follow up: Response: No adverse reaction; IV Status: Completed infusion; IV Intake: [id number] 22:48 Drug: Zithromax (azithromycin) 500 mg Route: IVPB; Infused Over: 1 hrs; Site: left ll3 antecubital; 12/12 00:04 Follow up: Response: No adverse reaction; IV Intake: 250ml ll3 Disposition Summary: 12/11/21 19:42 Hospitalization Ordered Hospitalization Status: Inpatient Admission mh7 Condition: Stable mh7 Problem: an acute exacerbation mh7 Symptoms: have improved mh7 Bed/Room Type: Standard [facility] Provider: Prince Brittney(12/11/21 19:52) la1 Location: Telemetry/MedSurg (Inpatient)(12/12/21 18:38) Room Assignment: [facility](12/12/21 18:38) Diagnosis - Dyspnea, unspecified mh7 - Hypokalemia 7 - Hypo-osmolality and hyponatremia 7 Forms: - Medication Reconciliation Form mh7 - SBAR form mh7 Signatures: Dispatcher [employer] EDMS Blair Jiang MD MD kdr Isabel Gutierrez RN RN Sam Mc, AUTOMATION DEVELOPER-C AUTOMATION DEVELOPER-Cla1 Ambar Rdz RN RN Cm Landon MD MD [facility] Osei Ahumada RN RN 3 Luz Marina-StageMargarita stanford RN RN doan Corrections: (The following items were deleted from the chart) 02 18:34 18:31 Rate is 86 beats/min. Rhythm is irregular, Sinus arrythmia with PACs, Right kdr bundle branch block. QRS [place] is Normal. IN interval is normal. QRS interval is normal. QT interval is normal. Clinical impression: Sinus arrythmia. kdr 19:52 19:42 Marshall Gold 7 la1 20:18 19:42 Telemetry/MedSurg (Inpatient) [facility] cg 20:18 19:42 7 cg 12/12 18:38 12/11 20:18 [facility] ER HOLD cg ss 12/12 18:38 12/11 20:18 ERHOLD- cg ss
--- NOTE | 2021-12-11 19:43 | ER ---
Nurse's Notes [facility] Name: Eugene Perrin Age: 71 yrs Sex: Female : 1950 Arrival Date: 12/11/2021 Time: 17:39 Bed 18 Private MD: Diagnosis: Dyspnea, unspecified;Hypokalemia;Hypo-osmolality and hyponatremia Presentation: 12/11 17:39 Chief complaint: Patient states: shortness of breath hx of chf uses O2 30/05. doan Coronavirus screen: Vaccine status: Patient reports receiving the 2nd dose of the covid vaccine. Ebola Screen: Patient denies travel to an Ebola-affected area in the 21 days before illness onset. Initial Sepsis Screen: Does the patient meet any 2 criteria? No. Patient's initial sepsis screen is negative. Does the patient have a suspected source of infection? No. Patient's initial sepsis screen is negative. Risk Assessment: Do you want to hurt yourself or someone else? Patient reports no desire to harm self or others. Onset of symptoms was December 11, 2021. 17:39 Method Of Arrival: EMS: [facility] 17:39 Acuity: WOO 3 doan Triage Assessment: 17:41 General: Appears in no apparent distress. Behavior is calm, cooperative. Pain: doan Complains of pain in chest. Historical: - Allergies: 17:41 Aspirin; doan 17:41 Codeine; doan 17:41 vinegar; doan - Home Meds: 17:41 aripiprazole 5 mg Oral tab 1 tab once daily [Active]; aspirin 81 mg Oral chew 1 tab doan once daily [Active]; Coreg 12.5 mg Oral tab 1 tab twice a day [Active]; diclofenac Oral [Active]; duloxetine 60 mg Oral cpDR 1 cap once daily [Active]; Famotidine Oral [Active]; gabapentin 300 mg Oral cap 1 cap 3 times per day [Active]; Gralise 600 mg Oral Tb24 [Active]; guaifenesin 400 mg Oral tab [Active]; hydrocodone-acetaminophen 10-325 mg Oral tab [Active]; hydrocodone-acetaminophen 2.5-500 mg Oral tab 1 tab every 4-6 hours [Active]; Lasix 40 mg Oral tab 1 tab once daily [Active]; melatonin 10 mg Oral tab [Active]; metolazone 5 mg Oral tab 1 tab once daily [Active]; omeprazole 40 mg Oral cpDR 1 cap once daily [Active]; prednisolone 15 mg/5 mL Oral soln [Active]; prednisone 20 mg Oral tab 1 tab as needed [Active]; Prozac 20 mg Oral cap 1 cap once daily [Active]; Stadol NS Nasal [Active]; symbicort [Active]; topiramate 200 mg Oral tab 1 tab 2 times per day [Active]; valacyclovir 500 mg Oral tab 1 tab once daily [Active]; ventylon [Active]; Zantac Oral [Active]; zolpidem 10 mg Oral tab 1 tab once daily [Active]; - PMHx: 17:41 CHF; cluster migranes; COPD; Rheumatoid Arthritis; doan - PSHx: 17:41 Cholecystectomy; hysterectomy; doan - Immunization history:: Adult Immunizations up to date. - Social history:: Smoking status: unknown. Screenin:45 Abuse screen: Denies threats or abuse. Denies injuries from another. Nutritional doan screening: No deficits noted. Tuberculosis screening: No symptoms or risk factors identified. Fall Risk None identified. Assessment: 17:45 General: Appears in no apparent distress. Behavior is calm, cooperative. Pain: doan Complains of pain in chest. Respiratory: Reports shortness of breath at rest on exertion Airway is patent. 19:00 Reassessment: Patient appears in no apparent distress at this time. No changes from ll3 previously documented assessment. Patient and/or family updated on plan of care and expected duration. Pain level reassessed. Patient is alert, oriented x 3, equal unlabored respirations, skin warm/dry/pink. 20:00 Reassessment: Patient appears in no apparent distress at this time. No changes from ll3 previously documented assessment. Patient and/or family updated on plan of care and expected duration. Pain level reassessed. Patient is alert, oriented x 3, equal unlabored respirations, skin warm/dry/pink. 21:03 Reassessment: Patient appears in no apparent distress at this time. No changes from ll3 previously documented assessment. Patient and/or family updated on plan of care and expected duration. Pain level reassessed. Patient is alert, oriented x 3, equal unlabored respirations, skin warm/dry/pink. 22:00 Reassessment: Patient appears in no apparent distress at this time. No changes from ll3 previously documented assessment. Patient and/or family updated on plan of care and expected duration. Pain level reassessed. Patient is alert, oriented x 3, equal unlabored respirations, skin warm/dry/pink. 12/12 19:08 Reassessment: I recv'd report on the pt in room 18. She is in NAD. She has a room michele assignment upstairs and an SBAR was printed, so I might call report. Registration was called to "flip" the pt. Report will be called shelly. 19:12 General: I attempted to call report, but they are in report. I left word and they will michele call me back, when they are able to accept report. . 19:34 General: I called report on the pt. and she is going to room 225. . michele Vital Signs: 12/11 17:39 BP 90 / 51; Pulse 126; Resp 22; Temp 97.8(O); Pulse Ox 100% on 2 lpm NC; Weight 77.11 doan kg; Height 5 ft. 5 in. (165.10 cm); 18:38 BP 100 / 68; Pulse 80; Resp 22; Pulse Ox 100% on 2 lpm NC; doan 21:04 BP 106 / 72; Pulse 69; Resp 20; Pulse Ox 98% on 2 lpm NC; ll3 22:00 BP 132 / 87; Pulse 55; Resp 20; Pulse Ox 97% on 2 lpm NC; ll3 12/12 19:11 BP 100 / 45; Pulse 62; Resp 16; Pulse Ox 99% ; Pain 0/10; michele 12/11 17:39 Body Mass Index 28.29 (77.11 kg, 165.10 cm) doan ED Course: 12/11 17:39 Patient arrived in ED. doan 17:41 Triage completed. doan 17:41 Arm band placed on right wrist. doan 17:42 Blair Jiang MD is Attending Physician. kdr 17:45 Patient has correct armband on for positive identification. Bed in low position. doan 17:45 No provider procedures requiring assistance completed. Maintain EMS IV. Dressing doan intact. Gauge \\T\\ site: 20g right FA. 18:32 Basic Metabolic Panel Sent. doan 18:32 CBC with Diff Sent. doan 18:32 LFT's Sent. doan 18:32 Magnesium Sent. doan 18:32 NT PRO-BNP Sent. doan 18:32 PT-INR Sent. doan 18:32 Troponin HS Sent. doan 18:37 XRAY Chest (1 view) In Process Unspecified. EDMS 19:20 Attending Physician role handed off by Blair Jiang MD 7 19:20 Cm Landon MD is Attending Physician. 7 19:30 Notified ED physician of a critical lab result(s). potassium of 1.9, cloride 76 Dr sergio Landon notified. 19:41 Marshall Gold MD is Hospitalizing Provider. 7 19:52 Prince Lugo MD is Hospitalizing Provider. la1 21:02 Door closed. Noise minimized. Lights dimmed. PO fluids given. ll3 21:02 Initial Neb Treatment Given as ordered Unable to instruct patient due to physical ll3 barriers, family/caregiver was instructed on procedure Patient tolerated procedure well without adverse effect. Oxygen administration via nasal cannula \\T\\ 2L/min. 22:01 Inserted saline lock: 22 gauge in left antecubital area, using aseptic technique. ll3 02 18:49 Joelle Oh, RN is Primary Nurse. michele 19:08 Joelle Oh, RN is Primary Nurse. michele 19:10 IV is patent, is intact, with fluids infusing freely, with good blood return, michele Administered Medications: 12/11 18:31 Drug: SOLU-Medrol (methylPrednisoLONE) 125 mg Route: IVP; Site: right forearm; doan 18:32 Follow up: Response: No adverse reaction doan 20:07 Not Given (Not availablee): NS 0.9% with KCl 40 mEq/L 1000 ml IV at per protocol ll3 continuous 20:27 Drug: Potassium Chloride 20 mEq Route: IV; Rate: 50 ml/hr; Site: right antecubital; ll3 22:48 Follow up: Response: No adverse reaction; IV Status: Completed infusion; IV Intake: ll3 100ml 20:28 Drug: Potassium Effervescent Tablet 50 mEq Route: PO; ll3 22:48 Follow up: Response: No adverse reaction ll3 20:53 Drug: Albuterol - atroVENT (ipratropium) (3:1) (2.5 mg - 0.5 mg) 3 ml Route: Nebulizer; ll3 21:16 Follow up: Response: No adverse reaction ll3 22:34 Drug: Rocephin - (cefTRIAXone) 1 grams Route: IVPB; Infused Over: 30 mins; Site: right ll3 antecubital; 23:13 Follow up: Response: No adverse reaction; IV Status: Completed infusion; IV Intake: [id number] 22:48 Drug: Zithromax (azithromycin) 500 mg Route: IVPB; Infused Over: 1 hrs; Site: left ll3 antecubital; 12/12 00:04 Follow up: Response: No adverse reaction; IV Intake: 250ml ll3 Intake: 12/11 22:48 IV: 100ml; Total: 100ml. ll3 23:13 IV: 50ml; Total: 150ml. ll3 12/12 00:04 IV: 250ml; Total: 400ml. ll3 Outcome: 12/11 19:42 Decision to Hospitalize by Provider. 7 12/12 19:10 Admitted to Med/surg michele Condition: stable 19:54 Patient left the ED. michele Signatures: Dispatcher [employer] EDMS Blair Jiang MD MD [facility] Joelle Louise, RN RN bb Sam Mc, SCHOOL CHILDCARE ATTENDANT-C SCHOOL CHILDCARE ATTENDANT-Cla1 Cm Landon MD MD [facility] Osei Ahumada RN RN 3 Joelle Oh RN RN bo Au-Stager, Heather, RN RN doan
[2021-12-11 19:45] LABS: Blood Morphology Comment NOT SEEN (NOT SEEN); Platelet Estimate ADEQ; White Blood Cell Scan OK (OK)
[2021-12-11] MEDS ORDERED: POTASSIUM 25 MEQ EFFERV TAB ONE (19:50)
[2021-12-11] MEDS ORDERED: NA CHLORIDE 0.9% 1,000 ML ONE (20:00)
[2021-12-11] MEDS ORDERED: KCL 20 MEQ/100 mL IVPB 100 ML IV ONE (20:01)
[2021-12-11] MEDS ORDERED: ALBUTEROL 2.5 MG/3 ML NEB SOL ONE (20:48)
[2021-12-11] MEDS ORDERED: IPRATROPIUM BROM 0.5MG/2.5ML ONE (20:48)
--- NOTE | 2021-12-11 21:03 | P.HP ---
Certification for Inpatient Patient admitted to: Inpatient With expected LOS: >2 Midnights Patient will require the following post-hospital care: None Practitioner: I am a practitioner with admitting privileges, knowledge of patient current condition, hospital course, and medical plan of care. Services: Services provided to patient in accordance with Admission requirements found in Title 42 Section 412.3 of the Code of Federal Regulations Patient History Date of Service: 12/11/21 Reason for admission: Hypokalemia COPD exacerbation History of Present Illness: 71-year-old female with history of COPD, RA, chronic diastolic congestive heart failure presents the emergency department for shortness of breath. Patient reports she had significant worsening of her shortness of breath that began this morning. Patient was evaluated in the emergency department labs were significant for white blood cell count 12.4 with some left shift sodium 125 potassium 1.9 chloride 76 carbon oxide 39 BUN 20 GFR 43 creatinine 1.23 BNP 2172 chest x-ray demonstrated mild bilateral interstitial lung opacities present suspicious for mild viral infiltration. Patient was given steroids, potassium, nebulizer treatment in the ER, ED provider wishes to admit for further evaluation and management of COPD with exacerbation, hypokalemia. Allergies aspirin Allergy (Verified 09/16/15 18:00) Nausea/Vomiting codeine Allergy (Verified 09/16/15 18:00) Nausea/Vomiting vinegar Allergy (Uncoded 04/03/16 19:10) Unknown Home Medications: ARIPiprazole [Abilify] 5 mg PO BEDTIME 07/18/20 Albuterol Inhaler [Ventolin Inhaler*] 2 puff IH PRN 07/18/20 Aspirin [Aspirin EC 81 MG] 81 mg PO BID 07/18/20 Budesonide/Formoterol Fumarate [Symbicort 80-4.5 Mcg Inhaler] 1 puff IH DAILY 07/18/20 Butorphanol Tartrate 1 spray MARIA T Q6H PRN 07/18/20 Carvedilol [Coreg] 12.5 mg PO BID 07/18/20 Duloxetine HCl 60 mg PO DAILY 07/18/20 Famotidine [Pepcid*] 20 mg PO BID 07/18/20 Furosemide [Lasix*] 40 mg PO DAILY 07/18/20 Gabapentin 600 mg PO TID 07/18/20 Hydrocodone Bit/Acetaminophen [Hydrocodon-Acetaminophn 10-325] 1 tab PO QIDP PRN 07/18/20 Melatonin 10 mg PO BEDTIME 07/18/20 Omeprazole [Prilosec] 40 mg PO DAILY 07/18/20 Topiramate [Topamax] 200 mg PO BID 07/18/20 Valacyclovir [Valtrex*] 500 mg PO DAILY 07/18/20 Zolpidem Tartrate [Ambien*] 10 mg PO BEDTIME 07/18/20 metOLazone [Metolazone] 5 mg PO DAILY 07/18/20 Fluoxetine HCl [Prozac] 20 mg PO DAILY 07/10/21 predniSONE [Prednisone*] 20 mg PO PRN PRN 07/10/21 - Past Medical/Surgical History Diabetic: No -: HTN -: COPD -: shingles -: rheumatoid arthritis -: Adrenal Gland disease -: GERD -: CHF -: hysterectomy -: Bilateral tubal ligation -: Cholecystectomy Psychosocial/ Personal History: Patient lives at home with her daughter - Family History Father -: Heart disease, Other (see notes) Notes: alcohol abuse; psoriasis; Mother -: Heart disease, Cancer - Social History Smoking Status: Current every day smoker Counseled patient to stop smoking for: less than 10 minutes Smoking therapy provided: Yes Alcohol use: No CD- Drugs: No Caffeine use: No Place of Residence: Home Review of Systems 10-point ROS is otherwise unremarkable General: Weakness, Malaise Respiratory: Cough, Shortness of Breath, SOB with Excertion, Wheezing Physical Examination - Physical Exam General: Alert, In no apparent distress, Oriented x3 HEENT: Atraumatic, PERRLA, Mucous membr. moist/pink, EOMI, Sclerae nonicteric Neck: Supple, 2+ carotid pulse no bruit, No LAD, Without JVD or thyroid abnormality Respiratory: Clear to auscultation bilaterally, Normal air movement, Expiratory wheezes Cardiovascular: Regular rate/rhythm, Normal S1 S2 Gastrointestinal: No tenderness Musculoskeletal: No tenderness Integumentary: No rashes Neurological: Normal speech, Normal strength at 5/5 x4 extr, Normal tone, Normal affect - Studies Laboratory Data (last 24 hrs) 12/11/21 18:16: PT 11.4, INR 0.99 12/11/21 18:16: WBC 12.40 H, Hgb 13.6, Hct 39.9, Plt Count 263 12/11/21 18:16: Sodium 125 L, Potassium 1.9 L*, BUN 20 H, Creatinine 1.23, Glucose 110 H, Total Bilirubin 0.9, AST 21, ALT 24, Alkaline Phosphatase 90 Assessment and Plan - Plan Assessment: Dyspnea, COPD with exacerbation with suspected superimposed pneumonia Hypokalemia Hyponatremia Chronic diastolic congestive heart failure Rheumatoid arthritis Plan: Dyspnea, COPD with exacerbation with suspected superimposed pneumonia: IV steroids, scheduled nebs, Rocephin/Zithromax. Pulmonology consulted, daily weight saturations. Anticipate clinical improvement over the course of next 24 to 48 hours. Hypokalemia: IV fluids containing potassium, given replacement in ER. Protocol in place. Likely related to diuretic use. Hyponatremia: Mild, likely related to diuretic use, patient appears dry at this time will continue gentle hydration overnight. Consult nephrology for worsening. Chronic diastolic congestive heart failure: Patient appears dry at this time continue gentle hydration overnight. Monitor volume status closely. Last echocardiogram 2014 with normal EF. Patient without any chest pain. Rheumatoid arthritis: Obtain and continue home medications as appropriate. DVT PPX: Lovenox Code status: Full Discharge Plan: Home Plan to discharge in: 48 Hours - Advance Directives Does patient have a Living Will: Yes Does patient have a Durable POA for Healthcare: Yes - Code Status/Comfort Care Code Status Assessed: Yes (FC) Critical Care: No Time Spent Managing Pts Care (In Minutes): 55
[2021-12-11] MEDS ORDERED: ACETAMINOPHEN 500 MG TAB PO PRN (21:30)
[2021-12-11] MEDS ORDERED: ONDANSETRON 4 MG/2 ML VIAL IV PRN (21:30)
[2021-12-11] MEDS ORDERED: BENZONATATE 100 MG CAP PO PRN (21:30)
[2021-12-11] MEDS ORDERED: CEFTRIAXONE 1,000 MG in NA CHLORIDE 0.9% 50 ML IVPB SCH (22:00)
[2021-12-11] MEDS ORDERED: AZITHROMYCIN IV 500 MG in NA CHLORIDE 0.9% 250 ML IVPB SCH (22:00)
[2021-12-11] MEDS ORDERED: AZITHROMYCIN 500 MG INJ IVPB ONE (22:06)
[2021-12-11] MEDS ORDERED: NA CHLORIDE 0.9% 50 ML ONE (22:06)
[2021-12-11] MEDS ORDERED: NA CHLORIDE 0.9% 250 ML ONE (22:06)
[2021-12-11] MEDS ORDERED: CEFTRIAXONE 1000 MG/VIAL ONE (22:06)
[2021-12-11 22:07] LABS: Magnesium 2.3
[2021-12-11] MEDS ORDERED: NICOTINE 14 MG/PAT TD SCH (22:30)
[2021-12-12] MEDS ORDERED: KCL 20 MEQ/100 mL IVPB 100 ML IV ONE ×2 (00:29→08:33)
[2021-12-12] MEDS: NS KCL 20MEQ 20 MEQ/1,000 ML BAG IV SCH ×3 (00:30→22:52)
[2021-12-12] MEDS: METHYLPREDNISOLONE 40 MG INJ IV SCH ×2 (01:00→08:57)
[2021-12-12] MEDS ORDERED: ZOLPIDEM TARTRATE 5 MG TABLET PO ONE (01:00)
[2021-12-12] MEDS ORDERED: ZOLPIDEM TARTRATE 5 MG TABLET ONE (01:15)
[2021-12-12] MEDS ORDERED: METHYLPREDNISOLONE 40 MG INJ ONE ×2 (01:15→08:51)
[2021-12-12] MEDS: ALBUTEROL 2.5 MG/3 ML NEB SOL NEB SCH ×2 (01:20→08:55)
[2021-12-12] MEDS: IPRATROPIUM BROM 0.5MG/2.5ML NEB SCH ×4 (01:20→20:09)
[2021-12-12] MEDS ORDERED: IPRATROPIUM BROM 0.5MG/2.5ML ONE ×4 (01:22→15:14)
[2021-12-12] MEDS ORDERED: ALBUTEROL 2.5 MG/3 ML NEB SOL ONE ×3 (01:22→15:14)
[2021-12-12 02:04] VITALS: BMI 28.3
[2021-12-12 04:16] LABS: Absolute Lymphocytes (CBC) 0.4 K/uL (0.7-4.9); Hematocrit 36.1 % (36.0-45.0); Lymphocytes % 4.6 % (15.3-44.8); MPV 8.2 fL (7.6-11.3); RBC Red Blood Cell Count 3.93 M/uL (3.86-4.86)
[2021-12-12 05:24] LABS: Albumin 2.6 g/dL (3.4-5.0); Bilirubin Total 0.4 mg/dL (0.2-1.0); Protein, Total 6.3 g/dL (6.4-8.2); Thyroid Stimulating Hormone 0.258 uIU/mL (0.360-3.740)
[2021-12-12 05:38] LABS: Potassium 2.5 mmol/L (3.5-5.1)
[2021-12-12] MEDS ORDERED: POTASSIUM 25 MEQ EFFERV TAB ONE ×2 (06:03→17:40)
[2021-12-12 06:09] LABS: SARS-COV-2 RT PCR NEGATIVE (NEGATIVE)
[2021-12-12] MEDS ORDERED: NICOTINE 21 MG/PAT TD ONE (08:51)
[2021-12-12] MEDS ORDERED: ENOXAPARIN 40 MG/0.4 ML SQ ONE (08:52)
[2021-12-12] MEDS: DULERA 200/5 (MOMETASONE/FORMOTEROL) INHALER IH SCH ×2 (08:56→20:29)
[2021-12-12] MEDS: ENOXAPARIN 40 MG/0.4 ML SQ SCH (08:56)
[2021-12-12] MEDS: NICOTINE 14 MG/PAT TD SCH (08:57)
[2021-12-12] MEDS: POTASSIUM 25 MEQ EFFERV TAB PO SCH (09:00)
[2021-12-12 09:22] LABS: Potassium 2.6 mmol/L (3.5-5.1)
[2021-12-12] MEDS ORDERED: BUTORPHANOL TARTRATE 10 MG/ML NAS PRN (09:48)
[2021-12-12] MEDS ORDERED: HYDROCODONE/APAP 10/325 TAB ONE (10:22)
[2021-12-12] MEDS ORDERED: GABAPENTIN 300 MG CAP ONE ×2 (10:22→17:39)
[2021-12-12] MEDS ORDERED: ASPIRIN EC 81 MG TAB PO ONE (10:22)
[2021-12-12] MEDS: HYDROCODONE/APAP 10/325 TAB PO PRN ×2 (10:23→20:27)
[2021-12-12] MEDS: DULOXETINE 30 MG CAP PO SCH (11:00)
[2021-12-12] MEDS: TOPIRAMATE 100 MG TAB PO SCH ×2 (11:00→20:27)
--- NOTE | 2021-12-12 11:07 | P.CNS ---
Date of Consult: 12/12/21 Reason for Consult: Shortness of breath Chief Complaint: Hypokalemia COPD exacerbation History of Present Illness: Patient is 71 years of age with a history of COPD chronic diastolic dysfunction admitted with acute onset of shortness of breath she is a history of recurrent exacerbations continues to smoke she is also found to be hyponatremic hypokalemic currently doing a little better using short acting bronchodilators including Symbicort at home Allergies aspirin Allergy (Verified 09/16/15 18:00) Nausea/Vomiting codeine Allergy (Verified 09/16/15 18:00) Nausea/Vomiting vinegar Allergy (Uncoded 04/03/16 19:10) Unknown Home Medications: ARIPiprazole [Abilify] 5 mg PO BEDTIME 07/18/20 Albuterol Inhaler [Ventolin Inhaler*] 2 puff IH PRN 07/18/20 Aspirin [Aspirin EC 81 MG] 81 mg PO BID 07/18/20 Budesonide/Formoterol Fumarate [Symbicort 80-4.5 Mcg Inhaler] 1 puff IH DAILY 07/18/20 Butorphanol Tartrate 1 spray MARIA T Q6H PRN 07/18/20 Carvedilol [Coreg] 12.5 mg PO BID 07/18/20 Duloxetine HCl 60 mg PO DAILY 07/18/20 Famotidine [Pepcid*] 20 mg PO BID 07/18/20 Furosemide [Lasix*] 40 mg PO DAILY 07/18/20 Gabapentin 600 mg PO TID 07/18/20 Hydrocodone Bit/Acetaminophen [Hydrocodon-Acetaminophn 10-325] 1 tab PO QIDP PRN 07/18/20 Melatonin 10 mg PO BEDTIME 07/18/20 Omeprazole [Prilosec] 40 mg PO DAILY 07/18/20 Topiramate [Topamax] 200 mg PO BID 07/18/20 Valacyclovir [Valtrex*] 500 mg PO DAILY 07/18/20 Zolpidem Tartrate [Ambien*] 10 mg PO BEDTIME 07/18/20 metOLazone [Metolazone] 5 mg PO DAILY 07/18/20 Fluoxetine HCl [Prozac] 20 mg PO DAILY 07/10/21 predniSONE [Prednisone*] 20 mg PO PRN PRN 07/10/21 - Past Medical/Surgical History Diabetic: No -: HTN -: COPD -: shingles -: rheumatoid arthritis -: Adrenal Gland disease -: GERD -: CHF -: hysterectomy -: Bilateral tubal ligation -: Cholecystectomy Psychosocial/ Personal History: Patient lives at home with her daughter - Family History Father Medical History: Heart disease, Other (see notes) Notes: alcohol abuse; psoriasis; Mother Medical History: Heart disease, Cancer - Social History Smoking Status: Unknown if ever smoked Alcohol use: No CD- Drugs: No Caffeine use: No Place of Residence: Home Review of Systems Respiratory: Cough, Shortness of Breath Physical Examination Temp Pulse Resp BP Pulse Ox 98.6 F 65 19 114/70 96 12/12/21 04:00 12/12/21 04:00 12/12/21 04:00 12/12/21 04:00 12/12/21 04:00 General: Alert, In no apparent distress, Oriented x3 Respiratory: Clear to auscultation bilaterally, Diminished Cardiovascular: No edema, Regular rate/rhythm Gastrointestinal: Normal bowel sounds, Soft and benign Musculoskeletal: No clubbing, No swelling Laboratory Data (last 24 hrs) 12/11/21 18:16: PT 11.4, INR 0.99 12/11/21 18:16: WBC 12.40 H, Hgb 13.6, Hct 39.9, Plt Count 263 12/11/21 18:16: Sodium 125 L, Potassium 1.9 L*, BUN 20 H, Creatinine 1.23, Glucose 110 H, Magnesium 2.3, Total Bilirubin 0.9, AST 21, ALT 24, Alkaline Phosphatase 90 - Problems (1) Hypokalemia Current Visit: No Status: Acute Plan: Patient is 71 years of age with diastolic heart failure admitted with severe hypokalemia aggressive potassium replacement she is probably 100s of milliequivalents deficient have started her on effervescent p.o. potassium including IV DC Lasix as well a better choice probably be spironolactone once her potassium levels have come back up to normal for her diastolic dysfunction instead of a combination of Lasix and metolazone (2) COPD exacerbation Onset Date: 09/17/15 Current Visit: No Status: Acute Plan: I suspect patient has severe COPD still continues to smoke continue with bronchodilators change to p.o. prednisone DC IV Zithromax changed to p.o. levofloxacin patient is also hyponatremic most likely volume depleted DC metolazone chest x-ray shows some baseline interstitial changes vital signs blood pressure currently satisfactory avoid scheduled albuterol as it will also lower serum potassium continue with nebulized ipratropium and and inhaled Dulera
--- NOTE | 2021-12-12 11:25 | P.PN ---
Subjective Date of Service: 12/12/21 Chief Complaint: Hypokalemia COPD exacerbation Subjective: Improving (She is feeling better.) Physical Examination - Vital Signs Temperature: 98.6 F Blood Pressure: 114/70 Pulse: 65 Respirations: 19 Pulse Ox (%): 96 - Physical Exam General: In no apparent distress, Cooperative, Other Respiratory: Other (No wheezing) Cardiovascular: No edema, Regular rate/rhythm, Normal S1 S2 Gastrointestinal: Soft and benign, Non-distended Musculoskeletal: No clubbing, No swelling, No contractures, No erythema Neurological: Normal speech, Normal affect - Studies Laboratory Data (last 24 hrs) 12/11/21 18:16: PT 11.4, INR 0.99 12/11/21 18:16: WBC 12.40 H, Hgb 13.6, Hct 39.9, Plt Count 263 12/11/21 18:16: Sodium 125 L, Potassium 1.9 L*, BUN 20 H, Creatinine 1.23, Glucose 110 H, Magnesium 2.3, Total Bilirubin 0.9, AST 21, ALT 24, Alkaline Phosphatase 90 Assessment And Plan - Current Problems (Diagnosis) (1) Acute exacerbation of chronic obstructive pulmonary disease Current Visit: No Status: Acute Physician Review Additional Text: Assessment Patient is a 71 year old female with chronic respiratory failure and COPD. She is admitted with another episode of COPD exacerbation Acute on chronic respiratory failure COPD exacerbation Hypokalemia HTN Plan: She is COVID 19 negative Continue IV steroids and Duonebs Continue Dulera I will change her abx to levofloxacin Repeat BMP and replace K+ as needed
[2021-12-12] MEDS ORDERED: Levofloxacin 750mg IV 750 MG/150 ML BAG IV SCH (12:00)
[2021-12-12] MEDS ORDERED: levoFLOXacin 500 MG TAB PO SCH (12:00)
[2021-12-12 13:05] LABS: Potassium 2.2 mmol/L (3.5-5.1)
[2021-12-12] MEDS: GABAPENTIN 300 MG CAP PO SCH ×2 (14:00→20:27)
[2021-12-12 14:13] LABS: Magnesium 2.4
[2021-12-12] MEDS: ALBUTEROL 2.5 MG/3 ML NEB SOL NEB PRN (15:00)
[2021-12-12] MEDS ORDERED: POTASSIUM CL SA 10 MEQ TAB PO ONE ×2 (16:53→17:39)
[2021-12-12] MEDS ORDERED: Levofloxacin500mg IV 500 MG/100 ML BAG IV ONE (17:40)
[2021-12-12] MEDS: ARIPiprazole 5 MG TAB PO SCH (20:26)
[2021-12-12] MEDS: ASPIRIN EC 81 MG TAB PO SCH (20:26)
[2021-12-12] MEDS: predniSONE 20 MG TAB PO SCH (20:27)
[2021-12-12] MEDS: MELATONIN 5 MG TABLET PO SCH (20:27)
[2021-12-12] MEDS: ZOLPIDEM TARTRATE 5 MG TABLET PO SCH (20:28)
[2021-12-12] MEDS ORDERED: carvediloL 12.5 MG TAB PO SCH (21:00)
[2021-12-12] MEDS ORDERED: ZOLPIDEM TARTRATE 10 MG TABLET PO SCH (21:00)
[2021-12-12 22:03] LABS: Potassium 2.6 mmol/L (3.5-5.1)
[2021-12-12] MEDS ORDERED: NA CHLORIDE 0.9% 250 ML ONE (22:45)
[2021-12-12] MEDS ORDERED: KCL 20 MEQ/100 mL IVPB 300 ML IV ONE (23:30)
[2021-12-12] MEDS: KCL 20 MEQ/100 mL IVPB 20 MEQ/100 ML BAG IV SCH (23:33)
[2021-12-13] MEDS: NS KCL 20MEQ 20 MEQ/1,000 ML BAG IV SCH (00:10)
[2021-12-13] MEDS: KCL 20 MEQ/100 mL IVPB 20 MEQ/100 ML BAG IV SCH ×2 (02:13→04:23)
[2021-12-13] MEDS: IPRATROPIUM BROM 0.5MG/2.5ML NEB SCH ×4 (03:11→20:10)
[2021-12-13 04:24] LABS: Absolute Lymphocytes (CBC) 0.6 K/uL (0.7-4.9); Hematocrit 34.3 % (36.0-45.0); Lymphocytes % 4.3 % (15.3-44.8); MPV 8.4 fL (7.6-11.3); RBC Red Blood Cell Count 3.65 M/uL (3.86-4.86)
[2021-12-13 05:18] LABS: Albumin 2.6 g/dL (3.4-5.0); Bilirubin Total 0.3 mg/dL (0.2-1.0); Potassium 3.5 mmol/L (3.5-5.1); Protein, Total 5.8 g/dL (6.4-8.2)
[2021-12-13] MEDS: PANTOPRAZOLE 40MG TABLET PO SCH (06:34)
[2021-12-13 08:14] LABS: Potassium 3.6 mmol/L (3.5-5.1)
[2021-12-13] MEDS: ASPIRIN EC 81 MG TAB PO SCH ×2 (08:40→21:24)
[2021-12-13] MEDS: TOPIRAMATE 100 MG TAB PO SCH (08:41)
[2021-12-13] MEDS: DULOXETINE 30 MG CAP PO SCH (08:41)
[2021-12-13] MEDS: GABAPENTIN 300 MG CAP PO SCH ×3 (08:41→21:23)
[2021-12-13] MEDS: POTASSIUM 25 MEQ EFFERV TAB PO SCH (08:41)
[2021-12-13] MEDS: DULERA 200/5 (MOMETASONE/FORMOTEROL) INHALER IH SCH ×2 (08:42→21:24)
[2021-12-13] MEDS: NICOTINE 14 MG/PAT TD SCH (08:42)
[2021-12-13] MEDS: ENOXAPARIN 40 MG/0.4 ML SQ SCH (08:43)
[2021-12-13] MEDS: predniSONE 20 MG TAB PO SCH ×2 (08:47→21:24)
[2021-12-13] MEDS ORDERED: FLUOXETINE 20 MG CAP PO SCH (09:00)
[2021-12-13] MEDS ORDERED: HOME MED 1 EA UNK (Budesonide/Formoterol Fumarate [Symbicort 80-4.5 Mcg Inhaler] 10.2 GM H IH SCH (09:00)
[2021-12-13] MEDS ORDERED: METOLAZONE 5 MG TABLET PO SCH (09:00)
[2021-12-13] MEDS ORDERED: VALACYCLOVIR 500 MG TAB PO SCH (09:00)
[2021-12-13] MEDS ORDERED: FUROSEMIDE 40 MG TABLET PO SCH (09:00)
[2021-12-13] MEDS: ALBUTEROL 2.5 MG/3 ML NEB SOL NEB PRN (09:05)
[2021-12-13] MEDS ORDERED: LORazepam 2 MG/ML VIAL IV ONE (09:39)
[2021-12-13] MEDS ORDERED: POTASSIUM CL SA 10 MEQ TAB PO ONE (11:28)
--- NOTE | 2021-12-13 12:37 | P.PN ---
Subjective Date of Service: 12/13/21 Chief Complaint: Hypokalemia COPD exacerbation Subjective: Worsening (Patient is having increased jerking of both extremities, mostly both upper extremities. Her mental status is good.) Physical Examination - Vital Signs Temperature: 97.1 F Blood Pressure: 109/52 Pulse: 75 Respirations: 18 Pulse Ox (%): 95 - Physical Exam General: Cooperative, Other (Jittery, nervous) HEENT: Atraumatic, Normocephalic Respiratory: Clear to auscultation bilaterally, Normal air movement Cardiovascular: No edema, Regular rate/rhythm, Normal S1 S2 Musculoskeletal: No clubbing, No swelling Neurological: Other (Tremors) Assessment And Plan - Current Problems (Diagnosis) (1) Acute exacerbation of chronic obstructive pulmonary disease Current Visit: No Status: Acute Physician Review Additional Text: Assessment Patient is a 71 year old female with chronic respiratory failure and COPD. She is admitted with another episode of COPD exacerbation. She has been stabilized from respiratory point. Her discharge has been postponed because of this sudden of tremors/jerking movements. She is not post-ictal. She is a high risk for Serotonin syndrome. She is taking Duloxetine and fluoxetine along with levofloxacin and topiramate Acute on chronic respiratory failure COPD exacerbation Hypokalemia HTN Plan: Hold albuterol to avoid hypokalemia Check BMP for K+ and Ca++ No relief with initial Ativan trial Continue supportive care with NS Consider Cyproheptadine if her sx worsened Continue IV steroids, levofloxacin, and Duonebs Discharge with spiriva. If needed, use spironolactone instead of furosemide for diuresis Rest of medications reviewed: pharmacy to obtain most accurate meds
[2021-12-13 13:29] LABS: Potassium 3.8 mmol/L (3.5-5.1)
[2021-12-13] MEDS: NA CHLORIDE 0.9% 1,000 ML IV SCH (14:03)
--- NOTE | 2021-12-13 14:46 | EKG ---
Test Date: 2021-12-11 Test Time: 18:23:13 Blender Helper: LAUREANO MEASUREMENT RESULTS: Intervals: Rate: 97 SC: QRSD: 126 QT: 340 QTc: 431 [place]: P: SC: QRS: -43 T: -31 INTERPRETIVE STATEMENTS: sinus rhythm pac Left axis deviation Right bundle branch block Anterior infarct, age undetermined T wave abnormality, consider lateral ischemia Abnormal ECG Compared to ECG 07/10/2021 09:30:04 T-wave abnormality now present Possible ischemia now present Myocardial infarct finding still present Electronically Signed On 12-13-21 14:44:30 PROMOS EXECUTIVE PRODUCER by Elijah Bravo
[2021-12-13 16:20] LABS: Magnesium 2.4
[2021-12-13] MEDS: ARIPiprazole 5 MG TAB PO SCH (21:22)
[2021-12-13] MEDS: ZOLPIDEM TARTRATE 5 MG TABLET PO SCH (21:23)
[2021-12-13] MEDS: MELATONIN 5 MG TABLET PO SCH (21:25)
[2021-12-13] MEDS: HYDROCODONE/APAP 10/325 TAB PO PRN (22:05)
[2021-12-14] MEDS: NA CHLORIDE 0.9% 1,000 ML IV SCH ×2 (00:43→10:10)
[2021-12-14] MEDS: IPRATROPIUM BROM 0.5MG/2.5ML NEB SCH ×3 (01:55→14:40)
[2021-12-14] MEDS: PANTOPRAZOLE 40MG TABLET PO SCH (06:00)
[2021-12-14 06:26] LABS: Absolute Lymphocytes (CBC) 0.8 K/uL (0.7-4.9); Hematocrit 33.8 % (36.0-45.0); Lymphocytes % 8.6 % (15.3-44.8); MPV 8.2 fL (7.6-11.3); RBC Red Blood Cell Count 3.55 M/uL (3.86-4.86)
[2021-12-14 06:52] LABS: Albumin 2.5 g/dL (3.4-5.0); Bilirubin Total 0.3 mg/dL (0.2-1.0); Potassium 3.6 mmol/L (3.5-5.1); Protein, Total 5.5 g/dL (6.4-8.2)
[2021-12-14 07:36] LABS: Blood Morphology Comment NOT SEEN (NOT SEEN); Platelet Estimate ADEQ; White Blood Cell Scan OK (OK)
[2021-12-14] MEDS: ALBUTEROL 2.5 MG/3 ML NEB SOL NEB PRN (08:05)
[2021-12-14] MEDS: DULERA 200/5 (MOMETASONE/FORMOTEROL) INHALER IH SCH (09:00)
[2021-12-14 09:23] VITALS: TEMP 97
[2021-12-14] MEDS: ASPIRIN EC 81 MG TAB PO SCH (10:10)
[2021-12-14] MEDS: POTASSIUM 25 MEQ EFFERV TAB PO SCH (10:10)
[2021-12-14] MEDS: GABAPENTIN 300 MG CAP PO SCH ×2 (10:10→15:05)
[2021-12-14] MEDS: predniSONE 20 MG TAB PO SCH (10:10)
[2021-12-14] MEDS: NICOTINE 14 MG/PAT TD SCH (10:11)
[2021-12-14] MEDS: ENOXAPARIN 40 MG/0.4 ML SQ SCH (10:11)
[2021-12-14] MEDS: HYDROCODONE/APAP 10/325 TAB PO PRN (10:45)
--- NOTE | 2021-12-14 11:35 | EKG ---
Test Date: 2021-12-11 Test Time: 18:24:01 Profile Shaper Operator: LAUREANO MEASUREMENT RESULTS: Intervals: Rate: 86 TN: 174 QRSD: 120 QT: 448 QTc: 536 [place]: P: 39 TN: 174 QRS: -48 T: -40 INTERPRETIVE STATEMENTS: Sinus rhythm with marked sinus arrhythmia Left axis deviation Right bundle branch block Anterior infarct, age undetermined Marked ST abnormality, possible inferior subendocardial injury Abnormal ECG Compared to ECG 12/11/2021 18:23:13 ST (T wave) deviation now present Atrial premature complex(es) no longer present T-wave abnormality no longer present Possible ischemia no longer present Myocardial infarct finding still present Electronically Signed On 12-14-21 11:30:48 CRYPTOLOGIC LINGUIST by Elijah Bravo
--- NOTE | 2021-12-14 11:35 | EKG ---
Test Date: 2021-12-11 Test Time: 18:26:05 Staff Air Tactical Officer: HAUS MEASUREMENT RESULTS: Intervals: Rate: 90 DE: QRSD: 124 QT: 412 QTc: 504 [place]: P: 99 DE: QRS: -41 T: -30 INTERPRETIVE STATEMENTS: Sinus tachycardia with 2nd degree AV block ([place]obitz I) Left axis deviation Right bundle branch block Anterior infarct, age undetermined Marked ST abnormality, possible inferior subendocardial injury Abnormal ECG Compared to ECG 12/11/2021 18:24:01 Sinus rhythm no longer present Sinus arrhythmia no longer present Myocardial infarct finding still present ST (T wave) deviation still present Electronically Signed On 12-14-21 11:30:47 FRET SAW OPERATOR by Elijah Bravo
[2021-12-14 14:17] LABS: Magnesium 2.3
[2021-12-14 15:24] VITALS: O2SAT 96
[2021-12-14 17:04] VITALS: BP 126/63
--- NOTE | 2021-12-15 09:02 | EKG ---
Test Date: 2021-12-13 Test Time: 15:57:32 Education Professor: BRENDEN, MEASUREMENT RESULTS: Intervals: Rate: 78 MI: 142 QRSD: 122 QT: 434 QTc: 494 [place]: P: 51 MI: 142 QRS: -34 T: 28 INTERPRETIVE STATEMENTS: Sinus rhythm with premature atrial complexes Left axis deviation Right bundle branch block Abnormal ECG Compared to ECG 12/11/2021 18:26:05 Atrial premature complex(es) now present Sinus tachycardia no longer present Myocardial infarct finding no longer present ST (T wave) deviation no longer present Electronically Signed On 12-15-21 08:58:02 CHIMNEY SWEEPER by Elijah Bravo
== END 2021-12-14 04:15 | disposition home or self-care (01) | DRG 190 ==
LOC: ER 17:28 → ERHOLD 20:34 → 2ND 12-12 19:13
PROVIDERS: ADMIT Internal Medicine; ATTEND Internal Medicine
DX: J44.1 Chronic obstructive pulmonary disease with (acute) exacerbation (principal); J96.20 Acute and chronic respiratory failure, unspecified whether with hypoxia or hypercapnia; J18.9 Pneumonia, unspecified organism; I50.32 Chronic diastolic (congestive) heart failure; E87.1 Hypo-osmolality and hyponatremia; J44.0 Chronic obstructive pulmonary disease with (acute) lower respiratory infection; E87.6 Hypokalemia; F17.210 Nicotine dependence, cigarettes, uncomplicated; I11.0 Hypertensive heart disease with heart failure; R25.9 Unspecified abnormal involuntary movements; M06.9 Rheumatoid arthritis, unspecified; Z20.822 Contact with and (suspected) exposure to COVID-19
CPT/HCPCS: 0241U; 36415; 71045; 80048; 80053; 80061; 80076; 82550; 82947; 83735; 83880; 84132; 84145; 84146; 84439; 84443; 84484; 85025; 85610; 93005; 94010; 94640; 99285; J0456; J1650; J2920; J2930; J3480; J7030; J7050; J7512; J7606

== ENCOUNTER 2022-04-29 11:26 | Emergency (ER) | payer OTHER ==
--- OUTSIDE RECORDS SUMMARY | 2022-04-29 11:29 | XMS REPORT | Clinical Summary ---
:1950 Author Organization [facility] MD [facility] Address [address] [place] [address] Care Team Providers Name Role Phone Zehra [...] Date Status predniSONE Take 20 mg by mouth 0 Active (DELTASONE) 5 mg as needed. FOR tablet RHEUMATOID ARTHRITIS FLARE UP carvedilol (COREG) 12.5 mg twice 0 Active 12.5 mg tablet daily. furosemide (LASIX) 40 Take 40 mg by mouth 0 Active mg tablet daily. aspirin 81 mg EC Take 81 mg by mouth 0 Active tablet twice daily. butorphanol (STADOL) Inhale 1 spray into 0 Active 10 mg/mL nasal spray each nostril every 4 (four) hours as needed for moderate pain. HYDROcodone-acetamino Take 1 tablet by 0 Active phen (NORCO) 10 mouth 2 (two) times mg-325 mg per tablet a day as needed. albuterol (VENTOLIN Inhale 1 puff by 0 Active HFA) 90 mcg/puff mouth as needed. inhaler budesonide-formoterol Inhale by mouth 0 Active (SYMBICORT) 80-4.5 twice daily. mcg/actuation inhaler topiramate (TOPAMAX) Take 400 mg by 0 Active 200 mg tablet mouth twice daily. leflunomide (ARAVA) Take 20 mg by mouth 0 Active 20 mg tablet daily. diazePAM (VALIUM) 10 Take 10 mg by mouth 0 Active mg tablet as needed. omeprazole (PriLOSEC) Take 40 mg by mouth 0 Active 40 MG capsule at bedtime. melatonin 10 mg Take 10 mg by mouth 0 Active tablet at bedtime. valACYclovir Take 500 mg by 0 Ac tive (VALTREX) 500 mg mouth daily. tablet gabapentin Take 300 mg by 0 Acti ve (NEURONTIN) 300 mg mouth 3 (three) capsule times a day. etanercept (ENBREL) Inject 50 mg under 0 Active 50 mg/mL (0.98 mL) the skin once a injection week. famotidine (PEPCID) Take 10 mg by mouth 0 Active 10 mg tablet twice daily. folic acid (FOLVITE) Take 1 mg by mouth 0 Active 1 mg tablet twice daily. metOLazone Take 5 mg by mouth 0 Active (ZAROXOLYN) 5 mg daily. tablet ARIPiprazole Take 5 mg by mouth 0 Active (ABILIFY) 5 mg tablet at bedtime. zolpidem (AMBIEN) 10 Take 10 mg by mouth 0 Active mg tablet at bedtime. DULoxetine (CYMBALTA) daily. 0 03/21/2020 Active 60 mg capsule ferrous sulfate 325 Take by mouth 0 Active mg (65 mg elemental daily. iron per tablet) tablet INCRUSE ELLIPTA 62.5 daily. 0 03/19/2020 Active mcg/actuation dsdv potassium chloride Take 20 mEq by 0 Active (K-DUR,KLOR-CON M) 20 mouth 3 (three) mEq tablet times a day. Active Problems Problem Noted Date Chronic kidney disease 01/17/2020 Emphysema 01/17/2020 Sore throat 11/22/2018 Bilateral mass of adrenal glands 12/08/2017 Hypertension 12/08/2017 Moderate chronic obstructive pulmonary disease 016 Coronary artery disease due to lipid rich plaque 03/30 Adrenal mass 02/19/2016 Rheumatoid arthritis 10/15/2009 Overview: Overview: ICD-10 Surgical History Surgery Date Site/Laterality Comments HYSTERECTOMY [...] Vaccination (1) 1962 Results Not on fileafter 04/29/2021 Insurance Payer Benefit Plan Subscriber ID Effective Phone Address Typ e / Group Dates MEDICARE MEDICARE PART [id number] 2015-Pres [phone] [place] Medicare A AND B ent [id number] [place] [address] AETNA SENIOR AETNA SENIOR [id number] 2015-Pres [address] [employer] SUPPLEMENT SUPPLEMENT-SE ent [id number] [place] [address] [facility] [place] [place] [id number] Eugene Perrin Personal/Family Self 1950 [address] [place] [id number] Eugene ePrrin Personal/Family Self 1950 [address] [place]) [place] [address] Care Teams Seaman Relationship Specialty Start Date End Date Zehra Hu MD PCP - General Endocrine Surgery 02/04/[address] [place] [id number] Scott Shaikh MD PCP - External Referring Family Practice 02/04/[address] [place] [id number] Scott Shaikh MD PCP - External Follow Up Family Practice 02/04/[address] [address]
--- OUTSIDE RECORDS SUMMARY | 2022-04-29 11:31 | XMS REPORT | Continuity of Care Document ---
:1950 Author Organization [facility] t Address [address] [place] [address] Care Team Providers Name Role Phone ALBERTO Primary Care Physician Unavailable SYSTEM, NOT IN Attending Clinician Unavailable BUBBA Attending Clinician Unavailable Margot LANDAVERDE Attending Clinician Unavailable Tony MYLES, A. Attending Clinician Rajat PARKER Attending Clinician Unavailable Petrona LOPEZ Attending Clinician Unavailable ALBERTO Attending Clinician Unavailable Payers Payer Name Policy Type Policy Number Effective Date Expiration Date S giancarlo MEDICARE PART A [id number] 2015 AND B 00:00:00 [employer] SENIOR [id number] 2015 SUPPLEMENT-SECOND 00:00:00 KAYLIN ONLY GENERIC [id number] Problems Condition Condition Condition Status Onset Resolution Last Treating Co mments Source Name Details Category Date Date Treatment Clinician Date Obesity Obesity Disease Recurre Method i nce 2-04 st 00:00: Hospita 00 l Anxiety Anxiety Disease Recurre 2019-11 Method i nce 1-05 st 00:00: Hospita 00 l 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 luz maria episode of episode of nce 1-05 st recurrent recurrent 00:00: Hosp masha major major 00 l depressive depressive disorder disorder CKD CKD Disease Recurre 2019-11 Methodi (chronic (chronic nce 11-11 st kidney kidney 00:00: Hospita disease) disease) 00 l Chronic Chronic Disease Active Univers kidney kidney 3-12 ity of disease disease 00:00: [place] 00 MD [facility] Emphysema Emphysema Disease Active Uni vers 3-12 ity of 00:00: [place] 00 MD [facility] Sore Sore Disease Active Univers throat throat 1-16 ity of 00:00: [place] 00 MD [facility] Bilateral Bilateral Disease Active Uni vers mass of mass of 2-01 ity of adrenal adrenal 00:00: [place] glands glands 00 MD [facility] [place] Hypertensi Hypertensi Disease Active U nivers on on 12-08 ity of 00:00: [place] 00 MD [facility] [place] Herpes Herpes Disease Active Methodi zoster zoster -18 st without without 00:00: Hospita complicati complicati 00 l on on Rheumatoid Rheumatoid Disease Recurre 2015-11 Methodi arthritis arthritis nce 1-17 st involving involving 00:00: Hosp masha multiple multiple 00 l sites with sites with positive positive rheumatoid rheumatoid factor factor Elevated Elevated Disease Active 2015-11 Metho di fasting fasting 1-17 st glucose glucose 00:00: Hospita 00 l Symptomati Symptomati Disease Active [facility] c 9[facility]13 [facility] cholelithi 00:[facility]: [facility] dical asis asis 00 Center 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 5-26 [place]y of obstructiv [place]iv [place] pulmonary pulmonary [place] rso disease disease n [facility] Atheroscle Atheroscle Disease Recurre Methodi rosis of rosis of nce 5-24 st coronary coronary 00:00: Hospit a artery artery 00 l Coronary Coronary Disease Active Unive rs artery artery 5-24 ity of disease disease 00:00: [place] due to due to 00 lipid rich lipid rich An derso plaque plaque n [facility] Adrenal Adrenal Disease Active Univers mass mass 4-14 ity of 00:00: [place] 00 MD [facility] Rheumatoid Rheumatoid Disease Active 2008-11 Overview : Univers arthritis arthritis - Formattin i ty of 00:00: g of this 00 note might be Hailey shine n from the Cancer original. Center Overview: ICD-10 History of History of Disease [...] ents Source Name Type Date Date Clinician Methotre Propensi Active Other (See Skin Un charlene xate ty to Comments) 2 peeling, ity o f Analogue adverse 00:00: mouth [place] s reaction 00 idrisesMD tse stomach Hailey morales [facility] Aspirin Propensi Active 2015-11 Only in Method [...] Active [facility] adverse 00:00: Medical reaction 00 Center s Codeine Propensi Active [facility] 9-13 [facility] adverse 00:00: Medical reaction 00 Center s Codeine Propensi Active Nausea And Uni vers ty to Vomiting 5-24 ity of adverse 00:00: [place] reaction 00 MD carmencita [facility] Other - Propensi Active Rash VINEGAR Univer s Food ty to 5-24 ity of adverse 00:00: [place] reaction 00 MD carmencita [facility] Aspirin Propensi Active Nausea And Uni vers ty to Vomiting 5-23 ity of adverse 00:00: [place] reaction 00 MD [facility]encita [facility] Family History Family Member Diagnosis Comments Start Date Stop Date Source Natural father Heart disease [facility] Natural father Heart attack [facility] Natural father Heart disease [facility] [place] [facility] [place] Natural father Hypertension [facility] [place] [facility] [place] Natural mother COPD [facility] Natural mother COPD [facility] Natural mother Skin cancer [facility] [place] [facility] [place] Natural sister Alopecia [facility] Natural [facility] B[facility] sister Hypertension [facility] [place] [facility] [place] [place] Natural brother Heart disease [facility]iver [facility] MD Orestes [facility] [place] Social History Social Habit Start Date Stop Date Quantity Comments Source History of tobacco Smoker Method ist use Hospital Alcohol intake 2020-01-17 2020-01-17 Current University of 00:00:00 00:00:00 non-drinker of [place] MD Margot caldera alcohol [facility] (finding) Tobacco use and 2016-09-23 2016-09-23 Smokeless [facility] exposure 00:00:00 00:00:00 tobacco non-user Hospital Cigarettes smoked 2016-03-30 2016-03-30 [facility] ity of current (pack per 00:00:00 00:00:00 [place] Jhoana Berrios ) - Reported Cancer Ce nter Sex Assigned At [birth year] [facility] 00:[facility] 00:[facility]:00 Hospital Smoking Status Start Date Stop Date Source Former smoker 2016-08-03 00:00:00 2016-08-03 00:00:00 [facility] Smokes tobacco daily 2016-03-30 00:00:00 [facility] [place] [facility] Medications Ordered Filled Start Stop Current Ordering Indication Dosage Frequency Signature Comments Components Source Medication Medication Date Date Medication? Clinician (SIG) Name Name valACYclovi Yes [id number] TAKE 1 Methodi r (VALTREX) 7-[address] 500 MG 00:00: MOUTH Hospita tablet 00 DAILY FOR l 30 DAYS. valACYclovi Yes [id number] TAKE 1 Methodi r (VALTREX) 7-[address] 500 MG 00:00: MOUTH Hospita tablet 00 DAILY FOR l 30 DAYS. leflunomide 2020- No [id number] TAKE 1 Methodi (ARAVA) 20 7-27 10-26 TABLET (20 st MG tablet 00:00: 04:59 MG TOTAL) Ho spita 00 :00 BY MOUTH l DAILY FOR 90 DAYS. leflunomide 2020- No [id number] TAKE 1 Methodi (ARAVA) 20 7-27 10-26 TABLET (20 st MG tablet 00:00: 04:59 MG TOTAL) Ho spita 00 :00 BY MOUTH l DAILY FOR 90 DAYS. valACYclovi 2020- No [id number] TAKE 1 Methodi r (VALTREX) 02-[address] 500 MG 00:00: 00:00 MOUTH Hospita tablet 00 :00 DAILY FOR l 30 DAYS. valACYclovi 2020- No [id number] TAKE 1 Methodi r (VALTREX) 02-[address] 500 MG 00:00: 00:00 MOUTH Hospita tablet 00 :00 DAILY FOR l 30 DAYS. leflunomide 2020- No [id number] TAKE 1 Methodi (ARAVA) 20 12-08 TABLET (20 st MG tablet 00:00: 00:00 MG TOTAL) Ho spita 00 :00 BY MOUTH l DAILY FOR 90 DAYS. leflunomide 2020- No [id number] TAKE 1 Methodi (ARAVA) 20 12-08 TABLET [...] 33 :00 catheter. l Every 8 weeks etanercept Yes Inject Metho di (ENBREL 1-[address] MINI SUBQ) 11:27: skin. Hospit a 49 l valACYclovi 2019-11- No [id number] TAKE 1 Methodi r (VALTREX) 12-[address] 500 MG 00:00: 00:00 MOUTH Hospita tablet 00 :00 DAILY FOR l 30 DAYS. valACYclovi 2019-11- No [id number] TAKE 1 Methodi r (VALTREX) 12-[address] 500 MG 00:00: 00:00 MOUTH Hospita tablet 00 :00 DAILY FOR l 30 DAYS. predniSONE 2019-11- No Take 4 Meth luz maria (DELTASONE) 1-16 04-[address] 1 mg tablet 00:00: 00:00 the Hospi ta 00 :00 morning l predniSONE 2019-11- No Take 4 Meth luz maria (DELTASONE) 1-16 04-[address] 1 mg tablet 00:00: 00:00 the Hospi ta 00 :00 morning l diazePAM 2019-11 Yes Take by Method i (VALIUM) 10 0-[address] MG tablet 00:00: Hospita 00 l diazePAM 2019-11 Yes Take by Method i (VALIUM) 10 0-[address] MG tablet 00:00: Hospita 00 l predniSONE 2019-11- No [id number] Take 3 Methodi (DELTASONE) 0-28 04-[address] 5 mg tablet 00:00: 00:00 day in the Hospita 00 :00 morning l predniSONE 2019-11- No [id number] Take 3 Methodi (DELTASONE) 0-28 04-[address] 5 mg tablet 00:00: 00:00 day in the Hospita 00 :00 morning l omeprazole 2019-11 Yes 40mg QD Take 40 mg M ethodi (PriLOSEC) 0-[address] 40 MG 00:00: daily. Hospita capsule 00 l omeprazole 2019-11 Yes 40mg QD Take 40 mg M ethodi (PriLOSEC) 0-[address] 40 MG 00:00: daily. Hospita capsule 00 l ARIPiprazol 2020-0 Yes 5mg QD Take 5 mg M ethodi e (ABILIFY) 9-[address] 5 MG tablet 00:00: nightly. Ho spita 00 l ARIPiprazol 2020-0 Yes 5mg QD Take 5 mg M ethodi e (ABILIFY) 9-[address] 5 MG tablet 00:00: nightly. Ho spita 00 l predniSONE 2020-0 2019- No [id number] Day 1- 2= Methodi (DELTASONE) 9-11 01 8 tabs, st 5 mg tablet 00:00: [...] mg/mL (1 18 :00 l mL) cartridge BABY 2020-0 Yes 81mg QD Take 81 [...] tablet 00:00: daily. Hospit a 00 l sertraline 2020-0 Yes 50mg QD Take 50 mg M ethodi (ZOLOFT) 50 8-[address] MG tablet 00:00: daily. Hospit a 00 l valACYclovi 2020-0 2020- No [id number] TAKE 1 Methodi r (VALTREX) 8-10 12-[address] 500 MG 00:00: 00:00 MOUTH Hospita tablet 00 :00 DAILY FOR l 30 DAYS. potassium 2020-0 Yes 20meq Take 20 Univ ers chloride 6-03 mEq by ity of (K-DUR,KLOR 11:21: mouth 3 Bret as -CON M) 20 47 (three) mEq tablet times a [place] o day. n [facility] predniSONE 2020-0 Yes 20mg Take 20 mg U nivers (DELTASONE) 6-03 by mouth ity of 5 mg tablet 11:16: as needed. [place] 37 FOR RHEUMATOID [facility] ARTHRITIS n [facility] carvedilol 2019-0 Yes 12.5mg 12.5 mg Un charlene (COREG) 6-03 twice ity of 12.5 mg 11:16: daily. [place] tablet 37 MD [facility] furosemide 2020-0 Yes 40mg Take 40 mg U nivers (LASIX) 40 6-03 by mouth ity o f mg tablet 11:16: daily. [place] 37 MD [facility] [place] aspirin 81 2020-0 Yes 81mg Take 81 mg U nivers mg EC 6-03 by mouth ity of tablet 11:16: twice [place] 37 daily. MD [facility] butorphanol 2019-0 Yes 1{spray Inhale 1 Univers (STADOL) 10 6- } spray into it y of mg/mL nasal 11:16: each [place] spray 37 nostril every 4 Anderso (four) n hours as Cancer needed for Center moderate pain. HYDROcodone 2019-0 Yes 1{tbl} Take 1 Un charlene -acetaminop 6-03 tablet by ity of hen (NORCO) 11:16: mouth 2 Bret as 10 mg-325 37 (two) MD mg per times a Anderso tablet day as n needed. Cancer Center albuterol 2019-0 Yes 1{puff} Inhale 1 U nivers (VENTOLIN 6-03 puff by ity of HFA) 90 11:16: mouth as [place] mcg/puff 37 needed. inhaler [facility] budesonide- 2020-0 Yes Inhale by U nivers formoterol 6-03 mouth ity of (SYMBICORT) 11:16: twice [place] 80-4.5 37 daily. MD cruz/actuati Hailey on inhaler n Cancer Center topiramate 2019-0 Yes 400mg Take 400 Un charlene (TOPAMAX) 6-03 mg by ity of 200 mg 11:16: mouth [place] tablet 37 twice MD daily. Anderso n [facility] leflunomide 2020-0 Yes 20mg Take 20 mg Univers (ARAVA) 20 6-03 by mouth ity o f mg tablet 11:16: daily. [place] 37 MD Hailey collazo [facility] Center diazePAM 2020-0 Yes 10mg Take 10 mg Uni vers (VALIUM) 10 6-03 by mouth ity of mg tablet 11:16: [place]. [place] [facility] omeprazole 2020-0 Yes 40mg Take 40 mg U nivers (PriLOSEC) 6-03 by mouth ity o f 40 MG 11:16: at [place] capsule 37 bedtime. MD [facility] melatonin 2020-0 Yes 10mg Take 10 mg Un charlene 10 mg 6-03 by mouth ity of tablet 11:16: at [place] 37 bedtime. MD [facility] valACYclovi 2020-0 Yes 500mg Take 500 U nivers r (VALTREX) 6-03 mg by ity of 500 mg 11:16: mouth [place] tablet 37 daily. MD [facility] gabapentin 2020-0 Yes 300mg Take 300 Un charlene (NEURONTIN) 6-03 mg by ity of 300 mg 11:16: mouth 3 [place] capsule 37 (three) MD times a Hailey [place]. [facility] etanercept 2020-0 Yes 50mg Inject 50 Un charlene (ENBREL) 50 6-03 mg under ity of mg/mL (0.98 11:16: the skin [place] mL) 37 once a MD injection week. [facility] famotidine 2020-0 Yes 10mg Take 10 mg U nivers (PEPCID) 10 6-03 by mouth ity of mg tablet 11:16: twice [place] 37 daily. MD [facility] folic acid 2020-0 Yes 1mg Take 1 mg Un charlene (FOLVITE) 1 6-03 by mouth ity of mg tablet 11:16: twice [place] 37 daily. MD [facility]iley [facility] metOLazone 2020-0 Yes 5mg Take 5 mg Un charlene (ZAROXOLYN) 6-03 by mouth ity of 5 mg tablet 11:16: daily. [place] 37 [place] [facility] ARIPiprazol 2020-0 Yes 5mg Take 5 mg U nivers e (ABILIFY) 6-03 by mouth ity of 5 mg tablet 11:16: at [place] [address] bedtime. MD [facility] zolpidem 2020-0 Yes 10mg Take 10 mg Uni vers (AMBIEN) 10 6-03 by mouth ity of mg tablet 11:16: at [place] [address] bedtime. MD [facility] ferrous 2020-0 Yes Take by Univers sulfate 325 6-03 mouth ity of mg (65 mg 11:16: daily. [place] elemental 37 iron per [place] tablet) n tablet [facility] DULoxetine 2020-0 Yes daily. Unive rs (CYMBALTA) 5-15 ity of 60 mg 00:00: [place] capsule 00 MD [facility] umeclidiniu 2020-0 Yes daily. Meth luz maria m (Incruse 5-13 st Ellipta) 00:00: Hospita 62.5 00 l mcg/actuati on blister with device umeclidiniu 2020-0 Yes daily. Meth luz maria m (Incruse 5-13 st Ellipta) 00:00: Hospita 62.5 00 l mcg/actuati on blister with device INCRUSE 2020-0 Yes daily. Univers ELLIPTA 5-13 ity of 62.5 00:00: [place] m[facility]uati [facility]fl[facility]omide [facility]- No [id number] TAKE 1 Methodi (ARAVA) 20 03-04- TABLET (20 st MG tablet 00:00: 00:00 MG TOTAL) Ho spita 00 :00 BY MOUTH l DAILY FOR 90 DAYS. leflunomide 2020- No [id number] TAKE 1 Methodi (ARAVA) 20 03-04- TABLET (20 st MG tablet 00:00: 00:00 MG TOTAL) Ho spita 00 :00 BY MOUTH l DAILY FOR 90 DAYS. gabapentin 2019-0 Yes TAKE 2 Metho di (NEURONTIN) 3-[address] 300 mg 00:00: BY MOUTH 3 Hospi ta capsule 00 TIMES A l DAY gabapentin 2019- Yes TAKE 2 Metho di (NEURONTIN) 3-[address] 300 mg 00:00: BY MOUTH 3 Hospi ta capsule 00 TIMES A l DAY folic acid 2017-11 Yes [id number] Take 2 Methodi (FOLVITE) 1 2-[address] MG tablet 00:00: mouth Hospita 00 daily l folic acid 2017-11 Yes [id number] Take 2 Methodi (FOLVITE) 1 2-[address] MG tablet 00:00: mouth Hospita 00 daily l XOPENEX HFA Yes USE 2 Metho di 45 8-13 (TWO) st mcg/actuati 00:00: PUFFS Hospi ta on inhaler 00 EVERY FOUR l HOURS, NEEDED XOPENEX HFA Yes USE 2 Metho di 45 8-13 (TWO) st mcg/actuati 00:00: PUFFS Hospi ta on inhaler 00 EVERY FOUR l HOURS, NEEDED DULoxetine Yes 60mg QD Take 60 mg M ethodi (CYMBALTA) 06-[address] 60 MG 00:00: daily. Hospita capsule 00 l DULoxetine Yes 60mg QD Take 60 mg M ethodi (CYMBALTA) 06-[address] 60 MG 00:00: daily. Hospita capsule 00 l topiramate Yes 100mg Q.5D Take 100 Me thodi (TOPAMAX) 7-[address] 100 MG 00:00: mouth 2 Hospita tablet 00 (two) l times a day. Take 2 tablets twice a day topiramate 0 Yes 100mg Q.5D Take 100 Me thodi (TOPAMAX) 7-[address] 100 MG 00:00: mouth 2 Hospita tablet 00 (two) l times a day. Take 2 tablets twice a day omeprazole 2020- No Method i (PriLOSEC) 5-18 09-10 st 40 MG 00:00: 00:00 Hospita capsule 00 :00 l zolpidem 2017-0 Yes [id number] QD nightly as Methodi (AMBIEN) 10 5-[address] mg tablet 00:00: Hospita 00 l zolpidem 2017-0 Yes [id number] QD nightly as Methodi (AMBIEN) 10 5-[address] mg tablet 00:00: Hospita 00 l furosemide 2016-0 Yes 40mg Q.5D Take [address] (LASIX) 40 9-27 by mouth 2 Angela es MG tablet 16:06: (two) Medical 49 times Center daily. BABY Yes Take by [facility] ASPIRIN 9- mouth. [facility] ORAL 16:06: Medical 49 Center carvedilol Yes 12.5mg Take 12.[address] (COREG) 9-27 mg by [facility] 12.5 MG 16:06: mouth 2 Medical tablet 49 (two) Center times daily with breakfast and dinner. leflunomide Yes 10mg QD Take [address] (ARAVA) 10 -27 by mouth [facility] MG tablet 16:06: daily. Medica l 49 Center HYDROcodone Yes 1{tbl} Take [address] -acetaminop 9-27 tablet by Angela es hen (NORCO 16:06: mouth Medica l 10-325) 49 every 6 Center 10-325 mg (six) per tablet hours as needed for Pain. butorphanol Yes None [facility] (STADOL) 10 - Entered. Luke s mg/mL nasal 16:06: Medica l spray 49 Center estrogens, Yes [address] conjugated, 9- DAILY. [facility] (PREMARIN) 16:06: Medical 0.625 MG 49 Center tablet fLUoxetine Yes [address] (PROZAC) 20 - EVERY [facility] MG capsule 16:06: MORNING. Med ical 49 Center budesonide- Yes Inhale by C [facility] formoterol - mouth via Luke s (SYMBICORT) 16:06: inhaler as Medical 80-4.5 49 needed . Center mcg/actuati on inhaler albuterol Yes 1{puff} Inhale [address] HFA 9-27 puff by [facility] (VENTOLIN 16:06: mouth via Med ical HFA) 90 49 inhaler Center mcg/actuati every 6 on inhaler (six) hours as needed . acyclovir Yes 800mg Take [address] (ZOVIRAX) 9-27 mg by [facility] 800 MG 16:06: mouth. Medical tablet 49 Center furosemide Yes 40mg Q.5D Take [address] (LASIX) 40 9-27 by mouth 2 Angela es MG tablet 16:06: (two) Medical 49 times Center daily. BABY Yes Take by [facility] ASPIRIN 9-27 mouth. [facility] ORAL 16:06: Medical 49 Center carvedilol Yes 12.5mg Take 12.[address] (COREG) 9-27 mg by [facility] 12.5 MG 16:06: mouth 2 Medical tablet 49 (two) Center times daily with breakfast and dinner. leflunomide Yes 10mg QD Take [address] (ARAVA) 10 -27 by mouth [facility] MG tablet 16:06: daily. Medica l 49 Center HYDROcodone Yes 1{tbl} Take [address] -acetaminop 9-27 tablet by Angela aissatou jay (NORCO 16:06: mouth Medica l 10-325) 49 every 6 Center 10-325 mg (six) per tablet hours as needed for Pain. butorphanol Yes None [facility] (STADOL) 10 - Entered. Luke s mg/mL nasal 16:06: Medica l spray 49 Center estrogens, Yes [address] conjugated, 08-03 DAILY. [facility] (PREMARIN) 16:06: Medical 0.625 MG 49 Center tablet fLUoxetine Yes [address] (PROZAC) 20 9- EVERY [facility] MG capsule 16:06: MORNING. Med ical 49 Center budesonide- Yes Inhale by C [facility] formoterol 9-27 mouth via Luke s (SYMBICORT) 16:06: inhaler as Medical 80-4.5 49 needed . Center mcg/actuati on inhaler albuterol Yes 1{puff} Inhale [address] HFA 9-27 puff by [facility] (VENTOLIN 16:06: mouth via Med ical HFA) 90 49 inhaler Center mcg/actuati every 6 on inhaler (six) hours as needed . acyclovir 2015- Yes 800mg Take [address] (ZOVIRAX) 9-27 mg by [facility] 800 MG 16:06: mouth. Medical tablet 49 Center levofloxaci Yes [facility] n 9-15 [facility] (LEVAQUIN) 00:00: Medical 750 MG 00 Center tablet levofloxaci Yes [facility] n 9-15 [facility] (LEVAQUIN) 00:00: Medical 750 MG 00 Center tablet SANTYL 250 2015- Yes [facility] unit/gram 8- [facility] ointment 00:00: Medical 00 [place] SANTYL 250 2015-[address] unit/gram 8- [facility] ointment 00:00: Medical 00 [place] predniSONE 2016-[address] (DELTASONE) 7-26 [facility] 5 MG tablet 00:00: Medica l 00 [place] predniSONE 2016-[address] (DELTASONE) 7-26 [facility] 5 MG tablet 00:00: Medica l 00 [place] BUTRANS 10 2015- Yes [facility] mcg/hour 7-25 [facility] PTWK 00:00: Medical 00 [place] BUTRANS [address] mcg/hour 7-25 [facility] PTWK 00:00: Medical 00 [place] topiramate 2016-[address] (TOPAMAX) 7- [facility] 50 MG 00:00: Medical tablet 00 [place] topiramate 2015-[address] (TOPAMAX) 7- [facility] 50 MG 00:00: Medical tablet 00 [place] gabapentin 2015- Yes 3{tbl} Take [address] (GRALISE) 4-12 tablets by Luke s 600 mg Tb24 00:00: mouth. [address] gabapentin 2015- Yes 3{tbl} Take [address] (GRALISE) 4-12 tablets by Luke s 600 mg Tb24 00:00: mouth. [address] Immunizations Ordered Immunization Filled Immunization Date Status Commen ts Source Name Name PFIZER COVID-19 MRNA 2020-12-19 Completed Meth odist VACCINATION 00:00:00 Hospital PFIZER COVID-19 MRNA 2020-12-19 Completed Meth odist VACCINATION 00:00:00 [facility] PFIZER COVID-19 MRNA 2020-11-21 Completed Meth odist VACCINATION 00:00:00 Hospital PFIZER COVID-19 MRNA 2020-11-21 Completed Meth odist VACCINATION 00:00:00 Hospital Vital Signs Vital Name Observation Time Observation Value Comments Source Systolic blood 2021-02-18 16:28:00 98 mm[Hg] Method ist Hospital pressure Diastolic blood 2021-02-18 16:28:00 65 mm[Hg] Metho dist Hospital pressure Heart rate 2021-02-18 16:28:00 91 /min [facility] Hospital Respiratory rate 2021-02-18 16:28:00 18 /min [facility] Body height 2021-02-18 16:28:00 160 cm [facility] Body weight 2021-02-18 16:28:00 100.699 kg [facility] BMI 2021-02-18 16:28:00 39.33 kg/m2 [facility] Oxygen saturation in 2021-02-18 16:28:00 93 /min [facility] Arterial blood by Pulse oximetry Body temperature 2020-07-17 14:53:00 36.39 Ariella [facility] Procedures Procedure Date / Time Performing Clinician Source Performed COVID-19 ANTI-SPIKE IGG 2021-02-18 17:15:00 [facility] ANTIBODY TITER C-REACTIVE PROTEIN 2021-02-18 17:15:00 [facility] SEDIMENTATION RATE 2021-02-18 17:15[facility] 2021-02-18 17:15:00 [facility] WITH MICROSCOPY COMPREHENSIVE METABOLIC 2021-02-18 17:15[facility] COMPLETE BLD COUNT 2021-02-18 17:15:00 [facility] W/AUTO DIFF ESTIMATED GFR 2021-02-18 17:15:00 [facility] COMPREHENSIVE METABOLIC 2020-09-11 16:15:00 Tony [facility] PANEL CBC WITH PLATELET AND 2020-09-11 16:15:00 [facility] DIFFERENTIAL C-REACTIVE PROTEIN 2020-09-11 16:15:00 Tony [facility] SEDIMENTATION RATE 2020-09-11 16:15:00 Tony [facility] URINALYSIS, AUTOMATED 2020-09-11 16:15:00 [facility] WITH MICROSCOPY MICROSCOPIC EXAMINATION 2020-09-11 16:15:00 Tony [facility] CBC WITH PLATELET AND 2020-07-17 05:00:00 [facility] DIFFERENTIAL COMPREHENSIVE METABOLIC 2020-07-17 05:00:00 Kevin Keane [facility] PANEL SEDIMENTATION RATE 2020-07-17 05:00:[address] [facility] [place] [facility] C-REACTIVE PROTEIN 2020-07-17 05:00:[address] [facility] [place] [facility] Plan of Care Planned Activity Planned Date Details Comments Source Future Scheduled 2021-10-07 65[address] [facility] Test 10:41:46 VACCINE (1 of 4 - PCV13) [code = 65+ PNEUMOCOCCAL VACCINE (1 of 4 - PCV13)] Future Scheduled 2021-10-07 BREAST CANCER [facility] Test 10:41:46 SCREENING [code = BREAST CANCER SCREENING] Future Scheduled 2021-10-07 COLONOSCOPY SCREENING [facility] Test 10:41:46 [code = COLONOSCOPY SCREENING] Future Scheduled 2021-10-07 SHINGLES VACCINES [facility] Hospital Test 10:41:46 (#1) [code = SHINGLES VACCINES (#1)] Future Scheduled 2021-10-07 INFLUENZA VACCINE [facility] Hospital Test 10:41:46 [code = INFLUENZA VACCINE] Future Scheduled 2021-10-07 COVID-19 VACCINE (3 - Me [facility] Test 10:41:46 Booster for Pfizer series) [code = COVID-19 VACCINE (3 - Booster for Pfizer series)] Future Scheduled 2021-08-29 COVID-19 Vaccination [facility] Test 03:51:41 (1) [code = COVID-19 MD [facility] Vaccination (1)] Center Future Scheduled 65+ [address]UM[address] [facility] Test VACCINE (1 of 4 - PCV13) [code = 65+ PNEUMOCOCCAL VACCINE (1 of 4 - PCV13)] Future Scheduled BREAST CANCER [facility] Test SCREENING [code = BREAST CANCER SCREENING] Future Scheduled COLONOSCOPY SCREENING [facility] Test [code = COLONOSCOPY SCREENING] Future Scheduled [facility] (#[facility]) [code = SHINGLES VACCINES (#1)] Future Scheduled [facility]INE [facility] [code = INFLUENZA VACCINE] Encounters Start End Encounter Admission Attending Care Care Encounter Source Date/Time Date/Time Type Type Clinicians Facility Department ID 2020-07-09 Outpatient TATA SPRINGER MDA [id number] 17:00:04 PROVIDER Austin o zay 2020-05-27 Outpatient TATA MAC MDA [id number] 11:57:19 KUNAL collazo 2020-05-26 Outpatient SYSTEM, MDA MDA [id number] 14:41:46 NIESHA collazo 2020-05-13 Outpatient FURROW, MDA MDA [id number] 09:03:37 JP collazo 2021-06-01 2021-06-01 Refill Keane, 1.2.840.1 [id number] Methodi 00:00:00 00:00:00 Kevin Frost. 67245.1.1 660 s t 3.430.2.7 Hospit a .3.164288 l .8 2021-05-19 2021-05-19 Telemedici Keane, 1.2.840.1 [id number] Methodi 10:46:28 10:48:28 ne Kevin Margot. 92559.1.1 227 s t 3.430.2.7 Hospit a .3.327913 l .8 2021-02-18 2021-03-10 Office Keane, 1.2.840.1 [id number] 2909 Methodi 10:57:47 09:23:45 Visit Kevin A. 08010.1.1 456 s t 3.430.2.7 Hospit a .3.101160 l .8 2021-02-18 2021-02-18 Lab Keane, 1.2.840.1 [id number] 6424 Methodi 12:03:45 12:08:45 Kevin A. 36499.1.1 826 s t 3.430.2.7 Hospit a .3.667805 l .8 2021-02-18 2021-02-18 Travel 1.2.840.1 1.2.639.762 1345 [id number] Methodi 00:00:00 00:00:[address] 3.430.2.7 0.2.7.3.698 Ho spita .3.407692 084.8 l .8 2021-02-03 2021-02-03 Refill Keane, 1.2.840.1 [id number] 3788 Methodi 00:00:00 00:00:00 Kevin Frost. 43337.1.1 049 s t 3.430.2.7 Hospit a .3.120552 l .8 2020-12-19 2021-01-20 Clinical 1.2.840.1 [id number] 62196 Methodi 10:16:28 15:59:[address] 3.430.2.7 Hospit a .3.949475 l .8 2021-01-13 2021-01-13 Orders Rajat, 1.2.840.1 [id number] 5227 Methodi 00:00:00 00:00:00 [address]a [address]1.[address] 3.430.2.7 Hospit a .3.834162 l .8 2020-12-11 2020-12-11 Travel 1.2.840.1 1.2.528.440 7885 578244 Methodi 00:00:00 00:00:[address] 3.430.2.7 0.2.7.3.698 Ho spita .3.176083 084.8 l .8 2020-12-08 2020-12-08 Refedward Keane, 1.2.840.1 [id number] 9895 Methodi 00:00:00 00:00:00 Kevin Frost. 77802.1.1 462 s t 3.430.2.7 Hospit a .3.623483 l .8 2020-11-21 2020-11-21 Clinical 1.2.840.1 [id number] 99310 55761 Methodi 11:03:51 11:24:[address] 3.430.2.7 Hospit a .3.983382 l .8 2020-11-21 2020-11-21 Travel 1.2.840.1 1.2.173.069 7586 987577 Methodi 00:00:00 00:00:[address] 3.430.2.7 0.2.7.3.698 Ho spita .3.571550 084.8 l .8 2020-11-19 2020-11-19 Office Keane, 1.2.840.1 [id number] 5742 Methodi 10:44:24 11:37:48 Visit Kevin Duron 79353.1.1 303 s t 3.430.2.7 Hospit a .3.474779 l .8 2020-11-19 2020-11-19 Travel 1.2.840.1 1.2.136.732 2679 [id number] Methodi 00:00:00 00:00:[address] 3.430.2.7 0.2.7.3.698 Ho spita .3.513154 084.8 l .8 2020-10-15 2020-10-15 Refill Keane, 1.2.840.1 [id number] 6800 Methodi 00:00:00 00:00:00 Kevin Duron 95118.1.1 408 s t 3.430.2.7 Hospit a .3.560496 l .8 2020-09-22 2020-09-22 Orders Rajat, 1.2.840.1 [id number] 5526 Methodi 00:00:00 00:00:00 Only Sowmya [address]94.1.[address] 3.430.2.7 Hospit a .3.945960 l .8 2020-09-11 2020-09-11 Office Keane, 1.2.840.1 [id number] 2000 Methodi 09:20:58 10:19:45 Visit Kevin Duron 19359.1.1 940 s t 3.430.2.7 Hospit a .3.347048 l .8 2020-09-11 2020-09-11 Outpatient [facility] [id number] [address] [place] 00:00:00 00:00:[address] 2020-09-11 2020-09-11 Outpatient KEANE, [facility] [id number] [address] [place] 00:00:00 00:00:00 KEVIN [address] 2020-09-11 2020-09-11 Travel 1.2.840.1 1.2.330.340 1460 [id number] Methodi 00:00:00 00:00:[address] 3.430.2.7 0.2.7.3.698 Ho spita .3.255574 084.8 l .8 2020-09-09 2020-09-09 Orders Petrona, 1.2.840.1 [id number] 7434 Methodi 00:00:00 00:00:00 Only Abby 57663.1.1 098 s t 3.430.2.7 Hospit a .3.635392 l .8 2020-09-03 2020-09-03 Telephone Rajat, 1.2.840.1 [id number] 151930 Methodi 00:00:00 00:00:[address] 3.430.2.7 Hospit a .3.113143 l .8 2020-07-17 2020-07-22 Infusion 1.2.840.1 [id number] 63457 20525 Methodi 09:51:06 12:18:[address] 3.430.2.7 Hospit a .3.611970 l .8 2020-07-17 2020-07-22 Office Keane, 1.2.840.1 [id number] 8479 Methodi 09:17:39 00:27:52 Visit Kevin Duron 53094.1.1 866 s t 3.430.2.7 Hospit a .3.832450 l .8 2020-07-18 2020-07-18 Telephone Rajat, 1.2.840.1 [id number] 2[address]65604 Methodi 00:00:00 00:00:[address] 3.430.2.7 Hospit a .3.103167 l .8 2020-07-18 2020-07-18 Orders Rajat, 1.2.840.1 [id number] 2361 Methodi 00:00:00 00:00:00 [address] [place]owmya [address]276.1.[address] 3.430.2.7 Hospit a .3.948587 l .8 2020-07-17 2020-07-17 Orders Keane, 1.2.840.1 [id number] 9302 Methodi 00:00:00 00:00:00 Only Kevin Frost. 43685.1.1 405 s t 3.430.2.7 Hospit a .3.382696 l .8 2020-07-17 2020-07-17 Travel 1.2.840.1 1.2.720.549 8019 771126 Methodi 00:00:00 00:00:[address] 3.430.2.7 0.2.7.3.698 Ho spita .3.327964 084.8 l .8 2020-07-08 2020-07-08 Outpatient EL ALBERTO, MDA MDA [id number] 00:00:00 00:00:00 YINKA collazo 2020-06-03 2020-06-03 Outpatient [facility] [id number] [address] [place] 00:00:00 00:00:[address] 2020-05-27 2020-05-27 Outpatient EL ALBERTO, MDA MDA [id number] 00:00:00 00:00:00 YINKA collazo 2020-05-20 2020-05-20 Outpatient EL ALBERTO, MDA MDA [id number] 1707 00:00:00 00:00:00 YINKA collazo 2020-05-20 2020-05-20 Outpatient [facility] [id number] [address] [place] 00:00:00 00:00:[address] 2020-04-23 2020-04-23 Outpatient KEANE, [facility] [id number] [address] [place] 00:00:00 00:00:00 KEVIN [address] 2020-04-23 2020-04-23 Outpatient KEANE, [facility] [id number] [address] [place] 00:00:00 00:00:00 KEVIN [address] [...] Protein, UA (test code = Negative Negative 10819-2) Glucose, UA (test code = Negative Negative 35715-8) Ketones, UA (test code = Negative Negative 2514-8) Bilirubin, UA (test code = Negative Negative 5770-3) Blood, UA (test code = 5794-3) Negative Negative Nitrite, UA (test code = Negative Negative 5802-4) Urobilinogen, UA (test code = <2.0 <2.0 01652-8) Leukocyte esterase, UA (test Negative Negative code [...] alexa l/abnormal. RBC, UA (test code = 49781-4) None seen See_Comment [Automated message] The system which generated this result transmitted ref erence range: 0 - 5 /HPF. The r eference range was not used to interpret this result as alexa l/abnormal. Bacteria, UA (test code = None seen None seen 45018-0) Hyaline casts, UA (test code = See_Comment [Automated message] The system 5796-8) which generated this result transmitted ref erence range: /LPF. The refer ence range was not used to int erpret this result as alexa l/abnormal. Yeast, UA (test code = None seen 16516-0) Yeast with pseudohyphae, UA None seen (test code = 08674-4) [facility] with [id number] 18:01:18 Test Item Value Reference Range Interpretation Comments Color, UA (test code = Straw 5778-6) Appearance, UA (test Clear code = 5767-9) Specific gravity, UA 1.001-1.035 (test code = 5811-5) pH, UA (test code = 5.0-8.5 5803-2) Protein, UA (test code Negative Negative = 97298-1) Glucose, UA (test code Negative Negative = 35938-2) Ketones, UA (test code Negative Negative = 2514-8) Bilirubin, UA (test Negative Negative code = 5770-3) Blood, UA (test code = Negative Negative 5794-3) Nitrite, UA (test code Negative Negative = 5802-4) Urobilinogen, UA (test <2.0 <2.0 code = 86133-3) Leukocyte esterase, UA Negative Negative (test code = 5799-2) Epithelial cells, UA <1 See_Comment [Autom ated message] (test code = 5787-7) The [employer] tem which generated this result transmitted ref erence range: /HPF. Th e reference range was not used to int erpret this result as normal/abnormal . WBC, UA (test code = <1 See_Comment [Autom ated message] 5821-4) The system [employer] generated this result transmitted ref erence range: 0 - 4 /H PF. The reference range was not used to int erpret this result as normal/abnormal . RBC, UA (test code = None seen See_Comment [Autom ated message] 69796-1) The system [employer] generated this result transmitted ref erence range: 0 - 5 /H PF. The reference range was not used to int erpret this result as normal/abnormal . Bacteria, UA (test None seen None seen code = 85112-9) Hyaline casts, UA See_Comment [Automate d message] (test code = 5796-8) The [employer] tem which generated this result transmitted ref erence range: /LPF. Th e reference range was not used to int erpret this result as normal/abnormal . Yeast, UA (test code = None seen 88301-2) Yeast with None seen pseudohyphae, UA (test code = 00495-9) [facility] [id number] 19:09:00 Test Item Value Reference Range Interpretation Comments WBC, UA (test code = 0-5 See_Comment [Autom ated 5821-4) message] The system which generated this result transmitted reference range : 0 - 5 /hpf. The reference range was not used to interpret this result as normal/abnormal . RBC, UA (test code = 0-2 See_Comment [Autom ated 58986-1) message] The system which generated this result [...] code = Present None seen /lpf A 63382-4) Cast type (test code Hyaline casts N/A = 07734-7) Mucus, UA (test code Present Not Estab. = 8247-9) Bacteria, UA (test Few None seen/Few code = 5769-5) KHURRAM (test code = KHURRAM) Performed at: [facility] [place], [place] [id number] Director: Mario Wellington MD, Phone: [phone] Lab Interpretation Abnormal (test code = 97878-2) [facility]
[2022-04-29] MEDS ORDERED: FUROSEMIDE 20 MG/ 2ML VIAL ONE (12:01)
[2022-04-29] MEDS ORDERED: ALBUTEROL 2.5 MG/3 ML NEB SOL ONE (12:02)
[2022-04-29] MEDS ORDERED: IPRATROPIUM BROM 0.5MG/2.5ML ONE (12:02)
[2022-04-29 12:08] LABS: Absolute Lymphocytes (CBC) 0.5 K/uL (0.7-4.9); Hematocrit 42.2 % (36.0-45.0); Lymphocytes % 1.8 % (15.3-44.8)
[2022-04-29 12:12] LABS: Protime INR 1.13
[2022-04-29] MEDS ORDERED: METHYLPREDNISOLONE 125 MG INJ ONE (12:14)
[2022-04-29 12:31] LABS: Blood Morphology Comment NOT SEEN (NOT SEEN); Platelet Estimate ADEQ; Toxic Granulation 1+
--- NOTE | 2022-04-29 12:35 | RAD REPORT ---
EXAM DESCRIPTION: USExtrem Venous W Compress Bil04/29/2022 12:28 pm CLINICAL HISTORY: Leg swelling COMPARISON: 2013 FINDINGS: The common femoral, superficial femoral, popliteal and posterior tibial veins bilaterally are compressible and demonstrate augmentation. Doppler demonstrates good flow. Grayscale, color and spectral analysis performed on all vessels IMPRESSION: No evidence of deep venous thrombosis involving either lower extremity.
[2022-04-29 12:41] LABS: Albumin 3.1 g/dL (3.4-5.0); Bilirubin Direct 0.1 mg/dL (0-0.2); Bilirubin Total 0.4 mg/dL (0.2-1.0); Protein, Total 7.6 g/dL (6.4-8.2); Troponin High Sensitivity 5.2 pg/mL (<58.9)
[2022-04-29 13:12] LABS: Potassium 2.7 mmol/L (3.5-5.1)
[2022-04-29] MEDS ORDERED: CEFTRIAXONE 1000 MG/VIAL ONE (13:25)
[2022-04-29] MEDS ORDERED: Levofloxacin500mg IV 500 MG/100 ML BAG IV ONE (13:26)
[2022-04-29] MEDS ORDERED: MAGNESIUM SULFATE 1 gm IVPB 1 GM/100 ML BAG IV ONE (13:49)
--- NOTE | 2022-04-29 13:49 | RAD REPORT ---
EXAM DESCRIPTION: RAD - Chest Single View - 04/29/2022 1:43 pm CLINICAL HISTORY: SOB COMPARISON: Chest Single View dated 12/11/2021; Chest Single View dated 07/10/2021; Chest Single View [facility] 07/18/2020; Chest Pa And Lat (2 Views) dated 09/19/2019 FINDINGS: Lines: None. Lungs: Diffuse prominence of the pulmonary interstitium. Pleural: No significant pleural effusions or pneumothorax. Cardiac: The heart size is within normal limits. Bones: No acute fractures. Other: IMPRESSION: Vascular congestion without chitra pulmonary edema.
[2022-04-29] MEDS ORDERED: KCL 20 MEQ/100 mL IVPB 100 ML IV ONE (14:29)
[2022-04-29] MEDS ORDERED: POTASSIUM 25 MEQ EFFERV TAB ONE ×2 (14:57→15:02)
[2022-04-29] MEDS ORDERED: POTASSIUM 25 MEQ EFFERV TAB PO ONE (15:40)
--- NOTE | 2022-04-29 15:42 | P.HP ---
Certification for Inpatient Patient will require the following post-hospital care: None Practitioner: I am a practitioner with admitting privileges, knowledge of patient current condition, hospital course, and medical plan of care. Services: Services provided to patient in accordance with Admission requirements found in Title 42 Section 412.3 of the Code of Federal Regulations Patient History Date of Service: 04/29/22 History of Present Illness: 71-year-old female with past medical history of COPD on chronic home O2 and steroids follows with Dr. Ayala, history of recurrent COPD exacerbation, still actively smoking, hypertension, diastolic CHF on chronic diuretics presented because of worsening shortness of breath since the last 3 days. She admits to cough but no sputum. She denies any fever or chills. She states she is vaccinated for COVID x2 doses but no booster. On presentation today she was satting 85% on her home 4 L. Her oxygen need has been escalated to 25 L/min high flow and she is satting 90 to 99% now. Chest x-ray shows mild vascular congestion worrisome for pulmonary edema. EKG shows no new ST changes. WBC is elevated at 29,000 with a left shift. Patient has been admitted for presumed pneumonia with combo of COPD and CHF exacerbation. Patient initially refusing to stay for hospitalization. She will prefer to go home. Patient discussed with and advised to stay since suspected significant high risk for mortality. Allergies aspirin Allergy (Verified 09/16/15 18:00) Nausea/Vomiting codeine Allergy (Verified 09/16/15 18:00) Nausea/Vomiting vinegar Allergy (Uncoded 04/03/16 19:10) Unknown Home Medications: ARIPiprazole [Abilify] 5 mg PO BEDTIME 07/18/20 Albuterol Inhaler [Ventolin Inhaler*] 2 puff IH PRN 07/18/20 Aspirin [Aspirin EC 81 MG] 81 mg PO BID 07/18/20 Butorphanol Tartrate 1 spray MARIA T Q6H PRN 07/18/20 Carvedilol [Coreg] 12.5 mg PO BID 07/18/20 Duloxetine HCl 60 mg PO DAILY 07/18/20 Famotidine [Pepcid*] 20 mg PO BID 07/18/20 Furosemide [Lasix*] 40 mg PO DAILY 07/18/20 Gabapentin 600 mg PO TID 07/18/20 Hydrocodone Bit/Acetaminophen [Hydrocodon-Acetaminophn 10-325] 1 tab PO QIDP PRN 07/18/20 Melatonin [Melatonin ER] 10 mg PO BEDTIME 07/18/20 Omeprazole [Prilosec] 40 mg PO DAILY 07/18/20 Topiramate [Topamax] 200 mg PO BID 07/18/20 Valacyclovir [Valtrex*] 500 mg PO DAILY 07/18/20 Zolpidem Tartrate [Ambien*] 10 mg PO BEDTIME 07/18/20 metOLazone [Metolazone] 5 mg PO DAILY 07/18/20 Fluoxetine HCl [Prozac*] 20 mg PO DAILY 07/10/21 predniSONE [Prednisone*] 20 mg PO PRN PRN 07/10/21 Benzonatate [Tessalon Perle*] 100 mg PO TID PRN #30 cap 12/14/21 Ipratropium Neb [Atrovent*] 0.5 mg NEB P2YKONA PRN #60 amp 12/14/21 Mometasone/Formoterol [Dulera 200 Mcg/5 Mcg Inhaler] 2 puff IH BID #1 inhaler 12/14/21 predniSONE [Prednisone*] 20 mg PO BID #20 tab 12/14/21 - Past Medical/Surgical History Diabetic: No -: HTN -: COPD -: shingles -: rheumatoid arthritis -: Adrenal Gland disease -: GERD -: CHF -: hysterectomy -: Bilateral tubal ligation -: Cholecystectomy Psychosocial/ Personal History: Patient lives at home with her daughter - Family History Father -: Heart disease, Other (see notes) Notes: alcohol abuse; psoriasis; Mother -: Heart disease, Cancer - Social History Smoking Status: Heavy Tobacco smoker (>10 cigarettes/day) (Smokes 2 to 3 packs/day) Smoking therapy provided: No Alcohol use: No CD- Drugs: No Caffeine use: No Place of Residence: Home Review of Systems ENT: Nose Congestion Respiratory: Shortness of Breath, SOB with Excertion Neurological: Weakness Physical Examination - Physical Exam General: Alert, Oriented x3, Severe distress, Obese HEENT: Atraumatic, Normocephalic, PERRLA Neck: Supple, 2+ carotid pulse no bruit, JVD not distended Respiratory: Diminished, Crackles/rales, Expiratory wheezes Cardiovascular: Normal pulses, Regular rate/rhythm, Normal S1 S2, Edema Gastrointestinal: Normal bowel sounds, Hypoactive, Non-distended Musculoskeletal: No clubbing, No swelling Neurological: Normal speech, Normal strength at 5/5 x4 extr, Sensation intact, Cranial nerves 3-12 intact - Studies Laboratory Data (last 24 hrs) 04/29/22 11:58: PT 12.5, INR 1.13 04/29/22 11:58: WBC 29.8 H*, Hgb 14.0, Hct 42.2, Plt Count 305 04/29/22 11:58: Sodium 133 L, Potassium 2.7 L*, BUN 31 H, Creatinine 1.28, Glucose 183 H, Magnesium 2.0, Total Bilirubin 0.4, AST 12 L, ALT 18, Alkaline Phosphatase 123 H Microbiology Data (last 24 hrs): 04/29/22 13:04 Nasopharnyx Influenza Type A Antigen Screen - Final 04/29/22 13:04 Nasopharnyx Influenza Type B Antigen Screen - Final Assessment and Plan - Advance Directives Does patient have a Living Will: No Does patient have a Durable POA for Healthcare: No Physician Review: Patient Assessed, Agree with Above Assessment and Plan Physician Review Additional Text: Impression Presumed pneumonia COPD exacerbation Mild CHF exacerbation Hypertension Obesity Chronic shingles infectionon Valtrex prophylaxis Rheumatoid arthritisstable Hypokalemia Plan We will admit patient to the IMCU Continue high flow O2, wean as tolerated Start IV steroids 80 mg every 6 Start low-dose Lasix Replete potassium aggressively Avoid IV fluids since fluid overload Obtain blood culture x2 Start empirical Vanco/cefepime Daily CBC to monitor WBC trend Subcutaneous Lovenox for DVT prophylaxis Will add pulmonary consult in a.m. Advance directive discussed with patientfull code
[2022-04-29] MEDS ORDERED: ONDANSETRON 4 MG/2 ML VIAL IV PRN (15:43)
[2022-04-29] MEDS ORDERED: ACETAMINOPHEN 500 MG TAB PO PRN (15:43)
[2022-04-29] MEDS ORDERED: MORPHINE 2 MG/ML SYR IV PRN (15:43)
[2022-04-29] MEDS ORDERED: ALBUTEROL 2.5 MG/3 ML NEB SOL NEB PRN (15:43)
[2022-04-29] MEDS ORDERED: BENZONATATE 100 MG CAP PO PRN (15:50)
[2022-04-29] MEDS ORDERED: HYDRALAZINE HCL 20 MG/ML VIAL IV PRN (15:50)
[2022-04-29] MEDS ORDERED: POTASSIUM CL SA 10 MEQ TAB PO SCH (16:00)
[2022-04-29] MEDS ORDERED: IPRATROPIUM BROM 0.5MG/2.5ML NEB SCH (16:25)
[2022-04-29] MEDS ORDERED: INSULIN -REGULAR HUMAN 50 UNIT/0.5 ML ML SQ SCH (16:30)
--- NOTE | 2022-04-29 16:51 | ER ---
Nurse's Notes [facility] Name: Eugene Perrin Age: 71 yrs Sex: Female : 1950 Arrival Date: 04/29/2022 Time: 11:26 Bed 2 Private MD: Diagnosis: COPD/ Chronic obstructive pulmonary disease with acute lower respiratory infection;Hypoxemia;Hypokalemia;Elevated white blood cell count Presentation: 04/29 11:43 Chief complaint: Patient states: SOB x 2 days with hx of COPD. states productive cough jh6 noted but no fever. admits to smoking daily and has been using home o2. Coronavirus screen: Client denies travel out of the [place] in the last 14 days. At this time, the client does not indicate any symptoms associated with coronavirus-19. Ebola Screen: Patient negative for fever greater than or equal to 101.5 degrees Fahrenheit, and additional compatible Ebola Virus Disease symptoms Patient denies exposure to infectious person. Patient denies travel to an Ebola-affected area in the 21 days before illness onset. Initial Sepsis Screen: Does the patient meet any 2 criteria? RR > 20 per min. HR > 90 bpm. Does the patient have a suspected source of infection? No. Patient's initial sepsis screen is negative. Risk Assessment: Do you want to hurt yourself or someone else? Patient reports no desire to harm self or others. Onset of symptoms was April 28, 2022 at 12:00. 11:43 Method Of Arrival: Ambulatory [facility] 11:43 Acuity: WOO 2 6 Triage Assessment: 11:46 General: Appears uncomfortable, Behavior is cooperative, Reports sob. Pain: Complains jh6 of pain in back. Neuro: No deficits noted. Cardiovascular: No deficits noted. Respiratory: Reports shortness of breath at rest on exertion since 2 days prior cough that is productive, labored breathing pain with cough Airway is patent Trachea midline Respiratory effort is labored, Respiratory pattern is tachypnea Onset: The symptoms/episode began/occurred the patient has moderate shortness of breath. GI: No deficits noted. Abdomen is obese, Bowel sounds present X 4 quads. Abd is soft and non tender. Historical: - Allergies: 11:40 Aspirin; ph 11:40 Codeine; ph 11:40 vinegar; ph - PMHx: 11:40 CHF; cluster migranes; COPD; Rheumatoid Arthritis; ph - PSHx: 11:40 Cholecystectomy; hysterectomy; ph Screenin:45 Abuse screen: Denies threats or abuse. Denies injuries from another. Nutritional ph screening: No deficits noted. Tuberculosis screening: No symptoms or risk factors identified. Fall Risk None identified. Assessment: 11:47 General: Appears in no apparent distress. see triage note.. Cardiovascular: No deficits jh6 noted. Respiratory: Airway is patent Breath sounds are diminished bilaterally. Breath sounds with wheezes bilaterally. in right upper lobe and left upper lobe. 11:48 Cardiovascular: Rhythm is regular. jh6 12:30 Reassessment: No changes from previously documented assessment. Patient and/or family jh6 updated on plan of care and expected duration. Pain level reassessed. Patient is alert, oriented x 3, equal unlabored respirations, skin warm/dry/pink. 13:45 Reassessment: Patient and/or family updated on plan of care and expected duration. Pain jh6 level reassessed. Patient is alert, oriented x 3, equal unlabored respirations, skin warm/dry/pink. pt able to speak in complete sentences at this at this point but not without increased sob. pt reports that she feels a little better. Patient states symptoms have improved. 14:30 Reassessment: Patient and/or family updated on plan of care and expected duration. Pain jh6 level reassessed. Patient is alert, oriented x 3, equal unlabored respirations, skin warm/dry/pink. pt placed on high flow n/c at 25lpm and 30% o2. pt tolerating well and states that she likes the high flow better then the other. pt stated that she is unable to tolerate a bipap due to anxiety. 15:30 Reassessment: Patient and/or family updated on plan of care and expected duration. Pain jh6 level reassessed. Pt tolerating high flow O2 well, able to speak in complete sentences without increase sob. pt after speaking with provider, advised that she is not going to stay in the hospital and that she is wanting to sign out ama. pt advised that she does not have the high flow O2 at home and that it would benefit for her to stay a couple of days to get the extra fluid off and to control respiratory difficulty. pt again denied admission and stated that she would stay to finish her "IV drips" but that she is going to leave after. PTs daughter is at bedside and is supporting her mothers wishes at this time. pt taken off of high flow O2 and place back on 4 lpm n/c to see if she can tolerate and not DeSat. Patient states feeling better. Patient states symptoms have improved. 17:03 Reassessment: Patient appears in no apparent distress at this time. Patient and/or ph family updated on plan of care and expected duration. Pain level reassessed. Patient is alert, oriented x 3, equal unlabored respirations, skin warm/dry/pink. Pt continues to state that she does not wish to be admitted and wants to go home, states that she is felling better, Spo2 100% on 4L NC, respirations mildly labored, other VSS, daughter at bedside states that pt lives w/ her and that she will bring pt back to ED if condition worsens, pt to sign out AMA. Vital Signs: 11:43 BP 125 / 76; Pulse 94; Resp 22; Temp 98.2(O); Pulse Ox 98% ; Weight 97.52 kg; Height 5 [facility] ft. 2 in. (157.48 cm); Pain 3/10; 11:45 BP 125 / 76; Pulse 89; Resp 22; Temp 98.5; Pulse Ox 85% on NC; kj1 13:00 BP 112 / 63; Pulse 86; Resp 23; Pulse Ox 96% on 4 lpm NC; Pain 2/10; jh6 13:30 BP 105 / 63; Pulse 88; Resp 22; Pulse Ox 98% on 6 lpm NC; Pain 2/10; 6 14:30 BP 102 / 66; Pulse 84; Resp 22; Pulse Ox 99% on NC; Pain 0/10; jh6 15:20 BP 106 / 55; Pulse 80; Resp 22; Pulse Ox 98% on NC; Pain 0/10; jh6 16:30 BP 99 / 60; Pulse 74; Resp 22; Temp 98.0; Pulse Ox 100% on 4 lpm NC; ph 11:43 Body Mass Index 39.32 (97.52 kg, 157.48 cm) [facility] ED Course: 11:26 Patient arrived in ED. rg4 11:35 Maico Kirk PA is PHCP. cp 11:35 Blair Jiang MD is Attending Physician. cp 11:37 Mas, Charlotte, RN is Primary Nurse. ph 11:40 Inserted saline lock: 20 gauge in right antecubital area, using aseptic technique. kj1 Blood collected. 11:45 Triage completed. jh6 11:45 Arm band placed on Patient placed in an exam room, on a stretcher, on oxygen, on ph panel monitor, on pulse oximetry. 11:48 Bed in low position. Call light in reach. Side rails up X 1. jh6 11:50 EKG done, by ED staff, reviewed by Maico MARIO. dh3 12:05 Patient taken to ultrasound. via wheelchair. jh6 12:30 US Extremity Venous W Compression Suman In Process Unspecified. EDMS 13:07 Flu and/or RSV swab sent to lab. jw7 13:07 First set of blood cultures drawn by me. Missed attempt(s): 22 gauge in right forearm. dh3 Bleeding controlled, band aid applied, catheter tip intact. 13:11 Second set of blood cultures drawn by me. dh3 13:16 Lactate Sent. dh3 13:44 XRAY Chest (1 view) In Process Unspecified. EDMS 17:06 No provider procedures requiring assistance completed. IV discontinued, intact, ph bleeding controlled, No redness/swelling at site. Pressure dressing applied. Administered Medications: 12:04 Drug: Lasix (furosemide) 20 mg Route: IVP; Site: right antecubital; jh6 17:11 Follow up: Response: No adverse reaction ph 12:04 Drug: Albuterol - atroVENT (ipratropium) (3:1) (2.5 mg - 0.5 mg) 3 ml Route: Nebulizer; jh6 17:11 Follow up: Response: No adverse reaction ph 12:59 Drug: SOLU-Medrol (methylPrednisoLONE) 125 mg Route: IVP; Site: right antecubital; jh6 17:11 Follow up: Response: No adverse reaction ph 13:27 Drug: Rocephin - (cefTRIAXone) 1 grams Route: IVPB; Infused Over: 30 mins; Site: right jh6 antecubital; 14:00 Follow up: Response: No adverse reaction; IV Status: Completed infusion ph 13:27 Drug: LevaQUIN (levofloxacin) 500 mg Volume: 100 ml; Route: IVPB; Infused Over: 60 jh6 mins; Site: right antecubital; 14:00 Follow up: IV Status: Completed infusion; IV Intake: 100ml ph 13:54 Drug: Magnesium Sulfate 1 grams Route: IVPB; Infused Over: 1 hrs; Site: left wrist; [facility] 14:00 Follow up: Response: No adverse reaction; IV Status: Completed infusion ph 14:49 Drug: Potassium Chloride 20 mEq Route: IV; Rate: calculated rate; Site: right [facility] antecubital; 17:10 Follow up: Response: No adverse reaction; IV Status: Completed infusion ph 15:04 Drug: Potassium Effervescent Tablet 50 mEq Route: PO; [facility] 17:09 Follow up: Response: No adverse reaction ph Medication: 17:06 VIS not applicable for this client. ph Intake: 14:00 IV: 100ml; Total: 100ml. ph Outcome: 16:51 Discharge ordered by . rufus 17:07 AMA AMA form signed 17:07 Condition: good 17:07 Instructed on follow up and referral plans. medication usage, Return to ED for worsening symptoms 17:11 Patient left the ED. ph Signatures: Dispatcher [employer] Charlotte Cotto, RN RN ph Maico Kirk, FABIANO PA Zo Daly rg4 Carolyn Josue 3 Ana Campos1 Sowmya Elam RN RN jh6 Thelma Plascencia7
--- NOTE | 2022-04-29 16:51 | EDPHYS ---
Physician Documentation [facility] Name: Eugene Perrin Age: 71 yrs Sex: Female : 1950 Arrival Date: 04/29/2022 Time: 11:26 Bed 2 Private MD: ED Physician Blair Jiang HPI: 04/29 11:50 This 71 yrs old Female presents to ER via Ambulatory with complaints of Breathing cp Difficulty, Shortness Of Breath. 11:50 The patient has shortness of breath at rest. cp 11:50 Onset: The symptoms/episode began/occurred 2 day(s) ago. Duration: The symptoms are cp continuous, and are steadily getting worse. Associated signs and symptoms: Pertinent positives: productive cough, Pertinent negatives: chest pain, diaphoresis, dizziness, fever, vomiting. Severity of symptoms: in the emergency department the symptoms are unchanged. 11:50 The patient has experienced similar episodes in the past, chronically. Patient with cp home oxygen and usually requires 3-4 liters/min. Patient continues to smoke. Historical: - Allergies: 11:40 Aspirin; ph 11:40 Codeine; ph 11:40 vinegar; ph - PMHx: 11:40 CHF; cluster migranes; COPD; Rheumatoid Arthritis; ph - PSHx: 11:40 Cholecystectomy; hysterectomy; ph ROS: 11:55 Constitutional: Negative for body aches, chills, fever, poor PO intake. cp 11:55 Cardiovascular: Positive for edema, Negative for chest pain, palpitations. cp 11:55 Respiratory: Positive for cough, with no reported sputum, shortness of breath, at rest. 11:55 Abdomen/GI: Negative for abdominal pain, vomiting, diarrhea, constipation. 11:55 Back: Negative for pain at rest, pain with movement. 11:55 Neuro: Negative for altered mental status, dizziness, headache, loss of consciousness, syncope, weakness. 11:55 All other systems are negative. Exam: 11:45 ECG was reviewed by the Attending Physician. cp 12:00 Constitutional: The patient appears in no acute distress, alert, awake, cp non-diaphoretic, non-toxic, well developed, well nourished. 12:00 Head/Face: Normocephalic, atraumatic. cp 12:00 Eyes: Periorbital structures: appear normal, Pupils: equal, round, and reactive to light and accomodation, Extraocular movements: intact throughout, Conjunctiva: normal, no exudate, no injection, Sclera: no appreciated abnormality, Lids and lashes: appear normal, bilaterally. 12:00 ENT: External ear(s): are unremarkable, Nose: is normal, Mouth: Lips: moist, Oral mucosa: pink and intact, moist, Posterior pharynx: Airway: no evidence of obstruction, patent. 12:00 Neck: ROM/movement: is normal, is supple, without pain, no range of motions limitations. 12:00 Chest/axilla: Inspection: normal, Palpation: is normal, no crepitus, no tenderness. 12:00 Cardiovascular: Rate: normal, Rhythm: regular, Edema: ankle edema, that is mild, JVD: is not appreciated. 12:00 Respiratory: moderate respiratory distress is noted, Respirations: labored breathing, that is moderate, shallow respirations, that is moderate, Breath sounds: decreased breath sounds, that are moderate, stridor, is not appreciated, wheezing: that is mild, is heard diffusely. 12:00 Abdomen/GI: Inspection: abdomen appears normal, Bowel sounds: active, all quadrants, Palpation: abdomen is soft and non-tender, in all quadrants. 12:00 Back: pain, is absent, ROM is normal. 12:00 Skin: cellulitis, is not appreciated, no rash present. 12:00 Neuro: Orientation: to person, place \\T\\ time. Mentation: is normal, Motor: moves all fours, strength is normal, Sensation: is normal. Vital Signs: 11:43 BP 125 / 76; Pulse 94; Resp 22; Temp 98.2(O); Pulse Ox 98% ; Weight 97.52 kg; Height 5 jh6 ft. 2 in. (157.48 cm); Pain 3/10; 11:45 BP 125 / 76; Pulse 89; Resp 22; Temp 98.5; Pulse Ox 85% on NC; kj1 13:00 BP 112 / 63; Pulse 86; Resp 23; Pulse Ox 96% on 4 lpm NC; Pain 2/10; jh6 13:30 BP 105 / 63; Pulse 88; Resp 22; Pulse Ox 98% on 6 lpm NC; Pain 2/10; jh6 14:30 BP 102 / 66; Pulse 84; Resp 22; Pulse Ox 99% on NC; Pain 0/10; [facility] 15:20 BP 106 / 55; Pulse 80; Resp 22; Pulse Ox 98% on NC; Pain 0/10; [facility] 16:30 BP 99 / 60; Pulse 74; Resp 22; Temp 98.0; Pulse Ox 100% on 4 lpm NC; ph 11:43 Body Mass Index 39.32 (97.52 kg, 157.48 cm) [facility] MDM: 11:46 Patient medically screened. 13:30 Data reviewed: vital signs, nurses notes, lab test result(s), EKG, radiologic studies, cp plain films. 13:30 Test interpretation: by ED physician or midlevel provider: ECG, plain radiologic cp studies. Counseling: I had a detailed discussion with the patient and/or guardian regarding: the historical points, exam findings, and any diagnostic results supporting the discharge/admit diagnosis, lab results, radiology results, the need for further work-up and treatment in the hospital. 14:20 ED course: Patient seen and evaluated by DR Bolanos and refusing admission at this cp time. Patient requests discharge to home. 04/29 11:49 Order name: Basic Metabolic Panel; Complete Time: 13:12 04/29 13:13 Interpretation: Normal except: NA 133; CL 87; CO2 40; GLUC 183; BUN 31; GFR 45; K 2.7. 04/29 11:49 Order name: CBC with Diff; Complete Time: 12:42 04/29 13:29 Interpretation: Normal except: WBC 29.8; SONG% 94.3; LYM% 1.8; NEUT A 28.0; LYMA 0.5. 04/29 11:49 Order name: LFT's; Complete Time: 13:12 04/29 12:50 Interpretation: Normal except: AST 12; ALK 123; ALB 3.1; GLOB 4.5; A/G 0.7. 04/29 11:49 Order name: Magnesium; Complete Time: 13:12 04/29 11:49 Order name: NT PRO-BNP; Complete Time: 13:12 04/29 11:49 Order name: PT-INR; Complete Time: 12:21 04/29 11:49 Order name: Troponin HS; Complete Time: 13:12 04/29 11:49 Order name: Procalcitonin; Complete Time: 12:49 04/29 12:49 Interpretation: Reviewed. 04/29 11:49 Order name: Lactate; Complete Time: 14:17 04/29 11:49 Order name: Blood Culture Adult (2) / 11:52 Order name: SARS-COV-2 RT PCR (Document "Date of Onset" if Symptomatic); Complete Time: kj1 14:17 04/29 12:32 Order name: Manual Differential; Complete Time: 12:43 EDNE 04/29 12:45 Order name: Influenza Screen (a \\T\\ B); Complete Time: 14:17 04/29 15:55 Order name: CBC with Automated Diff EDNE 04/29 11:49 Order name: XRAY Chest (1 view); Complete Time: 14:17 04/29 11:49 Order name: US Extremity Venous W Compression Suman; Complete Time: 12:43 04/29 15:55 Order name: Comprehensive Metabolic Panel [facility] 04/29 15:55 Order name: Troponin High Sensitivity [facility] 04/29 11:49 Order name: EKG; Complete Time: 11:49 04/29 11:49 Order name: Cardiac monitoring; Complete Time: 11:51 04/29 11:49 Order name: EKG - Nurse/Tech; Complete Time: 11:51 04/29 11:49 Order name: IV Saline Lock; Complete Time: 11:51 04/29 11:49 Order name: Labs collected and sent; Complete Time: 11:51 04/29 11:49 Order name: O2 Per Protocol; Complete Time: 11:51 04/29 11:49 Order name: O2 Sat Monitoring; Complete Time: 11:51 04/29 15:55 Order name: CONS Physician Consult EDNE 04/29 15:55 Order name: Full Liquid EDNE EC:45 Rate is 83 beats/min. Rhythm is regular. WA interval is normal. QRS interval is cp prolonged at 118 msec. QT interval is normal. Interpreted by me. Reviewed by me. Administered Medications: 12:04 Drug: Lasix (furosemide) 20 mg Route: IVP; Site: right antecubital; 6 17:11 Follow up: Response: No adverse reaction ph 12:04 Drug: Albuterol - atroVENT (ipratropium) (3:1) (2.5 mg - 0.5 mg) 3 ml Route: Nebulizer; [facility] 17:11 Follow up: Response: No adverse reaction ph 12:59 Drug: SOLU-Medrol (methylPrednisoLONE) 125 mg Route: IVP; Site: right antecubital; [facility] 17:11 Follow up: Response: No adverse reaction ph 13:27 Drug: Rocephin - (cefTRIAXone) 1 grams Route: IVPB; Infused Over: 30 mins; Site: right [facility] antecubital; 14:00 Follow up: Response: No adverse reaction; IV Status: Completed infusion ph 13:27 Drug: LevaQUIN (levofloxacin) 500 mg Volume: 100 ml; Route: IVPB; Infused Over: 60 jh6 mins; Site: right antecubital; 14:00 Follow up: IV Status: Completed infusion; IV Intake: 100ml ph 13:54 Drug: Magnesium Sulfate 1 grams Route: IVPB; Infused Over: 1 hrs; Site: left wrist; [facility] 14:00 Follow up: Response: No adverse reaction; IV Status: Completed infusion ph 14:49 Drug: Potassium Chloride 20 mEq Route: IV; Rate: calculated rate; [facility]; 17:10 Follow up: Response: No adverse reaction; IV Status: Completed infusion ph 15:04 Drug: Potassium Effervescent Tablet 50 mEq Route: PO; [facility] 17:09 Follow up: Response: No adverse reaction ph Disposition Summary: 04/29/22 16:51 Discharge Ordered Location: Home cp Problem: new cp Symptoms: have improved cp Condition: Serious cp Diagnosis - COPD/ Chronic obstructive pulmonary disease with acute lower respiratory infection cp - Hypoxemia cp - Hypokalemia cp - Elevated white blood cell count cp Followup: cp - With: Private Physician - When: 1 - 2 days - Reason: Recheck today's complaints Discharge Instructions: - Discharge Summary Sheet cp - Potassium Content of Foods cp - Chronic Obstructive Pulmonary Disease Exacerbation cp - Hypoxemia cp - Hypokalemia cp Forms: - Medication Reconciliation Form cp - Thank You Letter cp - Antibiotic Education cp - Prescription Opioid Use cp Prescriptions: - Potassium Chloride 10 mEq Oral capsule, extended release - take 1 tablet by ORAL route once daily; 5 tablet; Refills: 0, Product Selection cp Permitted - levofloxacin 500 mg Oral Tablet - take 1 tablet by ORAL route once daily for 7 days start afternoon of 04-30-2022; 6 tablet; Refills: 0, Product Selection Permitted Signatures: Dispatcher [employer] EDCharlotte Ponce, RN RN Maico Vázquez PA PA cp Hastedt, Jennifer RN RN jh6 Corrections: (The following items were deleted from the chart) 13:13 12:43 Normal except: NA 133; CL 87; CO2 40; GLUC 183; BUN 31; GFR 45. cp cp 13:29 12:50 Normal except: WBC 29.8. cp cp 16:55 15:55 Vancomycin Level Trough ordered. EDMS EDMS 16:55 15:55 Vancomycin Level Trough ordered. EDMS EDMS
[2022-04-29] MEDS ORDERED: VANCOMYCIN 2.5 GM in NA CHLORIDE 0.9% 500 ML IVPB ONE (17:00)
[2022-04-29] MEDS ORDERED: FUROSEMIDE 40 MG/4 ML VIAL IV SCH (17:00)
[2022-04-29 17:26] VITALS: BP 99/60; TEMP 98; O2SAT 100
[2022-04-29] MEDS ORDERED: METHYLPREDNISOLONE 125 MG INJ IV SCH (18:00)
[2022-04-29] MEDS ORDERED: ALBUTEROL 2.5 MG/3 ML NEB SOL NEB SCH (20:00)
[2022-04-29] MEDS ORDERED: GUAIFENESIN 600 MG SA TAB PO SCH (21:00)
[2022-04-29] MEDS ORDERED: TOPIRAMATE 100 MG TAB PO SCH (21:00)
[2022-04-29] MEDS ORDERED: ASPIRIN EC 81 MG TAB PO SCH (21:00)
[2022-04-29] MEDS ORDERED: ARIPiprazole 5 MG TAB PO SCH (21:00)
[2022-04-30] MEDS ORDERED: ENOXAPARIN 40 MG/0.4 ML SQ SCH (09:00)
[2022-04-30] MEDS ORDERED: ZINC SULFATE 220 MG CAP PO SCH (09:00)
[2022-04-30] MEDS ORDERED: CEFEPIME 1 GM in NA CHLORIDE 0.9% 100 ML IV SCH (09:00)
[2022-04-30] MEDS ORDERED: VALACYCLOVIR 500 MG TAB PO SCH (09:00)
[2022-05-01] MEDS ORDERED: VANCOMYCIN 1.5 GM in NA CHLORIDE 0.9% 250 ML IVPB SCH (05:00)
--- NOTE | 2022-05-01 17:34 | EKG ---
Test Date: 2022-04-29 Test Time: 11:39:16 Nurse Practitioner Physicians Assistant: OLIVER MEASUREMENT RESULTS: Intervals: Rate: 83 MA: 132 QRSD: 118 QT: 388 QTc: 455 [place]: P: 28 MA: 132 QRS: -38 T: 8 INTERPRETIVE STATEMENTS: Normal sinus rhythm Left axis deviation Right bundle branch block Cannot rule out Anterior infarct, age undetermined Abnormal ECG Compared to ECG 12/13/2021 15:57:32 Myocardial infarct finding now present Atrial premature complex(es) no longer present Electronically Signed On 05-01-22 17:30:15 CDT by Arcadio Olivera
== END 2022-04-29 17:11 | disposition home or self-care (01) ==
LOC: ER 11:26
DX: J44.0 Chronic obstructive pulmonary disease with (acute) lower respiratory infection (principal); R09.02 Hypoxemia; E87.6 Hypokalemia; D72.829 Elevated white blood cell count, unspecified; Z88.5 Allergy status to narcotic agent; Z88.6 Allergy status to analgesic agent; Z91.018 Allergy to other foods; Z20.822 Contact with and (suspected) exposure to COVID-19
CPT/HCPCS: 93005; 87040 ×2; 85025; 80048; 36415; 83735; 85610; 80076; 83605; 84484; 84145; 83880; 87804 ×2; 71045; 93970; 94002; 94640; 99285; U0003; J1940; J3480; J3475; J2930; J3370; J7040